=== PATIENT | male | born 1990 | race Caucasian/White ===

== ENCOUNTER 2023-10-21 11:21 | Outpatient (AMB) | payer BC, SELFPAY ==
--- NOTE | 2023-10-21 11:24 | A.OFFPC_ITS ---
Vital Signs 10/21/23 11:35 Height 6 ft Weight 181 lb 2 oz BMI 24.6 BP 120/70 Blood Pressure Location Rt brachial Position Sitting Respiration 16 Pulse 72 Pulse Source Pulse Oximeter Temp 97.8 F Temp Source Temporal Artery Scan Pulse Oximetry (%) 98 Oxygen Delivery Method Room Air Intake Visit Reasons: new patient/ shoulder pain pt letter Intake Note: patient here for new patient visit. 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 I had the pleasure of taking care of him previously. I am aware of the longstanding left shoulder pain and all of the workup and treatment that has gone into it over the last few years. This includes referral to specialist for evaluation and treatment, imaging of not only the shoulder but also the neck, chiropractor and physical therapy. He was given a letter of accommodation previously to avoid lifting greater than 50 lb as this seems to exacerbate his pain. His employer, [employer], is now being managed by a new group and he needs a new letter to support his medical accommodation. Exam: Awake alert, pleasant and cooperative Left arm neurovasc intact. No obvious deformity. Pain over top of shoulder w/ ROM in all directed. LROM overhead. No edema, erythema or ecchymosis. Plan: Letter of medical necessity written to him and provided to him at the time of the visit. RTO to est care for other health items in the next few weeks, sooner PRN. This note is constructed using voice recognition software. While every effort has been made to ensure accuracy in lever miller, still errors may have been included Sometimes, these errors may affect the content or meaning of the given sentence . Total time spent caring for the patient today was 30 minutes. This includes time spent before the visit reviewing the chart, time spent during the visit, and time spent after the visit on documentation [facility] Surgical History (Updated 10/21/23 @ 11:44 by Juliet Pino) H/O tooth extraction Family History (Updated 10/21/23 @ 11:33 by Juliet Pino) Mother FH: mental illness Father FH: mental illness Social History (Updated 10/21/23 @ 11:45 by Juliet Pino) Housing: House Patient Tobacco Use Status: Never used Tobacco e-Cigarette/Vaping Use: Never Used Second Hand Smoke Exposure: No Substance Use Type: Marijuana service: No 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 1. Little interest or pleasure in doing things: not at all 2. Feeling down, depressed, or hopeless: not at all 3. Trouble falling or staying asleep, or sleeping too much: several days 4. Feeling tired or having little energy: not at all 5. Poor appetite or overeating: not at all 6. Feeling bad about yourself - or that you are a failure or have let yourself or your family down: not at all 7. Trouble concentrating on things, such as reading the newspaper or watching television: not at all 8. Moving or speaking so slowly that other people could have noticed. Or the opposite - being so fidgety or restless that you have been moving around a lot more than usual: not at all 9. Thoughts that you would be better off or of hurting yourself in some way: not at all Total score: 1 Depression Screening Interpretation: Negative Depression Screening Done: Yes 01209 - PHQ-9 Billing: Yes Source: Developed by Drs. Sage Marinelli, Amaya Horan, Sd Martinez and colleagues, with an educational kayley from [employer]. Thrive Questionnaire Date Thrive assessed: 10/21/23 I am a: Patient What is your living situation today?: I have a steady place to live Within the past 12 months, did the food you bought not last and you didn't have the money to get more?: Never true Within the past 12 months, did you worry whether your food would run out before you got money to buy more?: Never true Do you have trouble paying for medicines?: No Do you have trouble getting transportation to medical appointments?: No Do you have trouble paying your heating and electricity bill?: No Do you have trouble taking care of your child, family member or friend?: No Do you have trouble with day-to-day activities such as bathing, preparing meals, shopping, managing finances, etc.?: No Are you currently unemployed and looking for a job?: No Are you interested in more education?: No Please select the resources that you would like help with: None Currently or been in a relationship where the following occur: No concerns reported THRIVE Score: 0 AUDIT C Alcohol Use Questionnaire (AUDIT-C) 1. How often do you have a drink containing alcohol?: 2-4 times a month 2. How many drinks containing alcohol do you have on a typical day when you are drinking?: 3 or 4 3. How often do you have six or more drinks on one occasion?: Less than monthly (just on holidays.) Total Score: 4 Score Reviewed/Action Taken: Yes ALISA-7 AMB Questionnaire ALISA-7 Date ALISA - 7 assessed: 10/21/23 Feeling nervous, anxious, or on edge: 0 = Not at all Not being able to stop or control worryin = Not at all Worrying too much about different things: 0 = Not at all Trouble relaxin = Not at all Being so restless that it is hard to sit still: 0 = Not at all Becoming easily annoyed or irritable: 0 = Not at all Feeling afraid as if something awful might happen: 0 = Not at all Total ALISA-7 score (0-4 normal; 5-9 mild; 10-14 moderate; 15-21 severe): 0 Source: Developed by Drs. Sage Marinelli, Amaya Horan, Sd Martinez and colleagues, with an educational kayley from [employer]. ALISA-7 Assessment Billing ALISA-7 Assessment Tool: ALISA-7 Assessment 29334 Physical exam (Primary Care) Vital Signs: Last Vital Signs Temp 97.8 F 10/21/23 11:35 Pulse 72 10/21/23 11:35 Resp 16 10/21/23 11:35 BP 120/70 10/21/23 11:35 Pulse Ox 98 10/21/23 11:35 Oxygen Delivery Method Room Air 10/21/23 11:35 BMI result Body Mass Index 24.6 Tobacco/Smoking Status: Tobacco use Status Tobacco use date assessed 10/21/23 10/21/23 11:35 Patient Tobacco Use Status Never used Tobacco 10/21/23 11:45 e-Cigarette/Vaping Use Never Used 10/21/23 11:45 PHQ-9: PHQ-9 Score PHQ-9: Total score 1 10/21/23 12:16 Depression Screening Interpretation: Negative Thrive Assessment: Date of Thrive Assessment Date Thrive assessed 10/21/23 10/21/23 11:46 Currently or been in a relationship where the following occur: No concerns reported Assessment and Plan Assessment & Plan (1) Chronic left shoulder pain: Code(s): M25.512 - Pain in left shoulder; G89.29 - Other chronic pain Patient Instructions: Walk-In Care (Urgent Care): We Make it Easy Walk-in for urgent medical issues such as: ? Seasonal Allergies ? Insect Bites ? Cough ? Diarrhea ? Acute Asthma Attacks ? Back, Knee or Joint Pain ? Ear Infection ? Fever without a Rash ? Headaches ? Nausea ? [place], Rash or Skin Irritation ? Sore Throat ? Sports Physicals ? Vomiting Most insurances are accepted. Patients do not need to be part of the [facility] to seek care at the walk-in clinic. Locations [facility] , [place] [address] ? [phone] [facility] Walk-In Care in [place] provides services to ages 18 and over. Open Thursday-Thursday: 8 a.m. to 5 p.m. and Thursday: 9 a.m. to 3 p.m.* *Hours may vary due to staffing availability. To confirm Walk-In Care hours in [place], please call [phone]. [address] [place] [address] ? [phone] [facility] Walk-In Care in [place] provides services to ages 12 and over. Open Thursday-Thursday: 8 a.m. to 5 p.m. Hours may vary due to staffing availability. To confirm Walk-In Care hours in [place], please call [phone]. LABORATORY SERVICES: [facility] Lab ? Primary Location [address] [place] [address] Thursday through Thursday 6:00 AM ? 5:00 PM Thursday 7:00 AM ? 11:00 AM* [phone] The [facility] Lab is centrally located near the front entrance of the [facility] for easy outpatient access. Convenient parking is provided for outpatients. *Hours may vary due to staffing availability. To confirm Laboratory hours for any location, please call [phone]. Offsite Location For your convenience, we offer offsite laboratory draw stations at the following locations: [address] [place] [address] ? [facility] [address] [facility], [address] [place] [address] Thursday through Thursday 7:30 AM ? 1:00 PM* [phone] *Hours may vary due to staffing availability. To confirm Laboratory hours for any location, please call [phone]. [place] ? [address] Thursday through Thursday 6:00 AM ? 3:30 PM* Thursday 6:30 AM ? 3 PM* [phone] *Hours may vary due to staffing availability. To confirm Laboratory hours for any location, please call [phone]. [address] [facility] Thursday through Thursday 7:30 AM ? 4:00 PM* [phone] *Hours may vary due to staffing availability. To confirm Laboratory hours for any location, please call [phone] [place] [address] Thursday through 9:00 AM ? 4:00 PM* *Hours may vary due to staffing availability. To confirm Laboratory hours for any location, please call [phone]. Appointments are not necessary. Walk-ins are welcome. Like all the departments throughout the [facility], our Lab undergoes frequent reviews to ensure the quality and accuracy of test results, and our staff takes special pride in its status as a nationally accredited facility. Patient Portal: ONE PATIENT. ONE RECORD. BETTER CARE. [facility] has a fully integrated, cutting- edge mobile electronic health information system that has revolutionized the way we care for our patients and manage our organization. This system improves communication and coordination enabling us to provide safe, higher-quality care, and an overall positive experience for staff and patients. Our first priority, as always, is to deliver the highest quality care possible. The system is running in the background supporting that priority. This portal is for all [facility] services and practices. If you are experiencing any technical difficulties with enrolling or logging into the Patient Portal please complete the [facility] Patient Portal Technical Support Form. [facility] now offers a new secure on-line interactive tool for patients to review their health information ? Patient Portal. This interactive web portal will enable patients and their families to take an active role in their care by providing easy, secure access to their health information via the internet. The Patient Portal provides patients with instant access to their health information, including laboratory results, medications, allergies, demographic information, visit history, and more. In addition to managing their own care, parents and health care proxies with authorized consent will appreciate the ability to access the records of those individuals for whom they provide care. Please note: if you wish to gain access (Proxy) to another patient?s portal, you will be required to come to the Medical Records Department in person at [facility]. Both the patient giving proxy access and the proxy will need to provide photo identification and complete the appropriate authorization. The Patient Portal also allows track their appointments online. The [facility] Patient Portal also saves patients time by allowing them to submit updates to their demographic and contact information prior to their visits. Portal email notifications will also alert patients to any new activity on their portal, such as test results and new appointments. In order to initially enroll in the [facility] Patient Portal, you will need to enter some required information including the following: ? your [facility] Medical Record number ? your personal home email address ? name ? date of Please note: In order to enroll in the [facility] Patient Portal, we need to have your email address on file in your electronic medical record. The email address needs to be specific for one person (yourself) in order for your Portal enrollment to be successful. You can update your email address in person with our Registration staff when you are registering for a hospital visit. Otherwise, you will need to come to the Health Information Management (Medical Records) Department at [facility]. We are open from Thursday ? Thursday from 7:30 a.m. ? 4:30 p.m. You will be required to present a photo id. Once you have successfully enrolled in the Patient Portal, you will receive a one-time user id and password for the Portal, sent to your email address. This will allow you to log into the Patient Portal within 99 hrs and reset your own logon id and password, and define personal security questions. Once your permanent login and password have been set, you can log into the [facility] Patient Portal at any time via the blue button above or from the Portal Logon button on any page of the [facility] website. [facility] encourage all of our patients to enroll in Patient Portal as it presents a valuable opportunity for patients and their families to actively participate in their care and stay healthy Welcome to [facility]. We look forward to working with you. Coding Level of Care Code New Pt Level 3 (61536) Diagnoses Chronic left shoulder pain M25.512; G89.29 Additional Codes ALISA-7 Assessment Billing - ALISA-7 Assessment Tool: ALISA-7 Assessment 08888 ([id number])
[2023-10-21 11:35] VITALS: BP 120/70; PULSE 72; RESP 16; TEMP 36.6; O2SAT 98; BMI 24.6
== END 2023-10-21 12:25 | disposition home or self-care (01) ==
PROVIDERS: Visit Provider Nurse Practitioner Family
DX: M25.512 Pain in left shoulder (principal); G89.29 Other chronic pain
CPT/HCPCS: 99203

== ENCOUNTER 2023-12-30 11:23 | Outpatient (AMB) | payer BC, SELFPAY ==
--- NOTE | 2023-12-30 11:28 | A.OFFPC_ITS ---
Vital Signs 12/30/23 11:30 Height 6 ft Weight 186 lb 2 oz BMI 25.2 BP 112/66 Blood Pressure Location Rt brachial Position Sitting Respiration 14 Pulse 73 Pulse Source Pulse Oximeter Pulse Oximetry (%) 99 Oxygen Delivery Method Room Air Intake Visit Reasons: est care Intake Note: to establish care Allergies No Known Allergies Allergy (Verified 12/30/23 11:56) Medication List - Last Reconciled 12/30/23 by LUIS DickersonP- ferrous sulfate 325 mg PO DAILY omeprazole 20 mg PO DAILY Tobacco use date assessed: 10/21/23 Dental Screening Dental Screen Date: 12/30/23 Did you have a dental visit in the last 12 months?: Yes Did you have a dental problem in the last 6 months where you did not have access to dental care?: No Was dental information given to patient?: Patient has dentist HPI HPI Comments History of Present Illness Details 33 Year old male with chronic left shoul ayush pain, GERD, MDD, ALISA s/p dental extraction 09/2023 Social: works for [employer] Health Maintenance: [employer] 07/06/2017 Specialists: None Here today to establish care. Would like to discuss his chronic left shoulder pain, episodes of guard as well as anxiety and panic. 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 He is also on the verge of being let go from his current job and starting a new job. All of this has caused increased stress for him. He reports that he is having episodes of acid reflux which are longstanding. However they are worse at the current time. The GERD symptoms also occur while he is exercising. Reports that he thinks the GERD is triggering his left shoulder pain. He self treated at home with [id number]-[id number] omeprazole 20 mg for 2 weeks and had positive improvement in his shoulder pain. Reports he had no shoulder pain when using the omeprazole. He initially thought that it helped with his anxiety symptoms as well. However he stopped taking it as he thought his stomach felt different, and started taking every other day. Recently he had an episode of what he calls a panic attack. This was on the day that he did not take his omeprazole. He reports a longstanding history of anxiety and depression. He was in counseling in the past. He was on Zoloft and Prozac in the past. Regards to his medication, reports that he is currently taking an iron supplement and several other supplements to ensure that his body has what it needs. He reports a childhood history of anemia. Exam: Awake, Alert, NAD RRR LS CTAB Abd soft, nontender Mildly anxious,appropriate Plan Cont omeprazole... wonder if any of the supplements are worsening his anxiety or GERD.. iron or mag perhaps.. will need to discuss w/ him at the f/u check screening labs to r/o other causes for sx Declined counseling at this time Start buspirone 7.5 mg po 2-3 times per day, ok to self increase to 15mg BID if needed after 2 weeks. RTO 4 weeks fu Anxiety, sooner PRN This note is constructed using voice recognition software. While every effort has been made to ensure accuracy in leadership development instructor, still errors may have been included Sometimes, these errors may affect the content or meaning of the given sentence . Total time spent caring for the patient today was 30 minutes. This includes time spent before the visit reviewing the chart, time spent during the visit, and time spent after the visit on documentation PFSH Surgical History (Updated 10/21/23 @ 11:44 by Juliet Pino) H/O tooth extraction Family History (Updated 10/21/23 @ 11:33 by Juliet Pino) Mother FH: mental illness Father FH: mental illness Social History (Updated 12/30/23 @ 11:34 by Cat Lafleur MA) Household Members: Significant Other Housing: House Are you a primary healthcare social worker to a significant other at home: No Do you presently have visiting nurse or other home services: No Alcohol intake: current Alcohol intake frequency: a few times a month Alcohol type: beer Patient Tobacco Use Status: Never used Tobacco e-Cigarette/Vaping Use: Never Used Second Hand Smoke Exposure: No Substance Use Type: Marijuana service: No 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 1. Little interest or pleasure in doing things: several days 2. Feeling down, depressed, or hopeless: more than half the days 3. Trouble falling or staying asleep, or sleeping too much: nearly every day 4. Feeling tired or having little energy: nearly every day 5. Poor appetite or overeating: nearly every day 6. Feeling bad about yourself - or that you are a failure or have let yourself or your family down: not at all 7. Trouble concentrating on things, such as reading the newspaper or watching television: nearly every day 8. Moving or speaking so slowly that other people could have noticed. Or the opposite - being so fidgety or restless that you have been moving around a lot more than usual: not at all 9. Thoughts that you would be better off or of hurting yourself in some way: not at all Total score: 15 Depression Screening Interpretation: Positive Depression Screening Follow-up: New Medication prescribed Depression Screening Done: Yes 46397 - PHQ-9 Billing: Yes Source: Developed by Drs. Sage Marinelli, Amaya Horan, Sd Martinez and colleagues, with an educational kayley from [employer]. Thrive Questionnaire Date Thrive assessed: 12/30/23 I am a: Patient What is your living situation today?: I have a steady place to live Within the past 12 months, did the food you bought not last and you didn't have the money to get more?: Never true Within the past 12 months, did you worry whether your food would run out before you got money to buy more?: Never true Do you have trouble paying for medicines?: No Do you have trouble getting transportation to medical appointments?: No Do you have trouble paying your heating and electricity bill?: No Do you have trouble taking care of your child, family member or friend?: No Do you have trouble with day-to-day activities such as bathing, preparing meals, shopping, managing finances, etc.?: No Are you currently unemployed and looking for a job?: No Are you interested in more education?: No Please select the resources that you would like help with: None Currently or been in a relationship where the following occur: No concerns reported THRIVE Score: 0 AUDIT C Alcohol Use Questionnaire (AUDIT-C) 1. How often do you have a drink containing alcohol?: Monthly or less 2. How many drinks containing alcohol do you have on a typical day when you are drinking?: 1 or 2 3. How often do you have six or more drinks on one occasion?: Never Total Score: 1 Score Reviewed/Action Taken: Yes ALISA-7 AMB Questionnaire ALISA-7 Date ALISA - 7 assessed: 12/30/23 Feeling nervous, anxious, or on edge: 2 = More than half the days Not being able to stop or control worryin = More than half the days Worrying too much about different things: 2 = More than half the days Trouble relaxin = More than half the days Being so restless that it is hard to sit still: 2 = More than half the days Becoming easily annoyed or irritable: 0 = Not at all Feeling afraid as if something awful might happen: 2 = More than half the days Total ALISA-7 score (0-4 normal; 5-9 mild; 10-14 moderate; 15-21 severe): 12 Source: Developed by Drs. Sage Marinelli, Amaya Horan, Sd Martinez and colleagues, with an educational kayley from [employer]. ALISA-7 Assessment Billing ALISA-7 Assessment Tool: ALISA-7 Assessment 43842 Physical exam (Primary Care) Vital Signs: Last Vital Signs Pulse 73 12/30/23 11:30 Resp 14 12/30/23 11:30 BP 112/66 12/30/23 11:30 Pulse Ox 99 12/30/23 11:30 Oxygen Delivery Method Room Air 12/30/23 11:30 BMI result Body Mass Index 25.2 Tobacco/Smoking Status: Tobacco use Status Tobacco use date assessed 10/21/23 12/30/23 11:29 Patient Tobacco Use Status Never used Tobacco 12/30/23 11:34 e-Cigarette/Vaping Use Never Used 12/30/23 11:34 PHQ-9: PHQ-9 Score PHQ-9: Total score 15 12/30/23 12:02 Depression Screening Interpretation: Positive Depression Screening Follow-up: New Medication prescribed Thrive Assessment: Date of Thrive Assessment Date Thrive assessed 12/30/23 12/30/23 11:37 Currently or been in a relationship where the following occur: No concerns reported Assessment and Plan Assessment & Plan (1) Chronic left shoulder pain: Code(s): M25.512 - Pain in left shoulder; G89.29 - Other chronic pain (2) Hx of iron deficiency anemia: Code(s): Z86.2 - Personal history of diseases of the blood and blood-forming organs and certain disorders involving the immune mechanism (3) ALISA (generalized anxiety disorder): Code(s): F41.1 - Generalized anxiety disorder (4) MDD (major depressive disorder): Code(s): F32.9 - Major depressive disorder, single episode, unspecified Qualifiers: Major depression recurrence: recurrent Active/Remission status: currently active Major depression episode severity: mild Qualified Code(s): F33.0 - Major depressive disorder, recurrent, mild (5) GERD without esophagitis: Code(s): K21.9 - Gastro-esophageal reflux disease without esophagitis Orders: Orders Complete Blood Count no Diff Today F32.9 - Major depressive disorder, single episode, unspecified, F41.1 - Generalized anxiety disorder, G89.29 - Other chronic pain, K21.9 - Gastro-esophageal reflux disease without esophagitis, M25.512 - Pain in left shoulder, Z86.2 - Personal history of diseases of the blood and blood-forming organs and certain disorders involving the immune mechanism Magnesium Today F32.9 - Major depressive disorder, single episode, unspecified, F41.1 - Generalized anxiety disorder, G89.29 - Other chronic pain, K21.9 - Gastro-esophageal reflux disease without esophagitis, M25.512 - Pain in left shoulder, Z86.2 - Personal history of diseases of the blood and blood-forming organs and certain disorders involving the immune mechanism Comprehensive Met. Panel Today F32.9 - Major depressive disorder, single episo de, unspecified, F41.1 - Generalized anxiety disorder, G89.29 - Other chronic pain, K21.9 - Gastro-esophageal reflux disease without esophagitis, M25.512 - Pain in left shoulder, Z86.2 - Personal history of diseases of the blood and blood-forming organs and certain disorders involving the immune mechanism IRON PROFILE Today F32.9 - Major depressive disorder, single episode, unspecified, F41.1 - Generalized anxiety disorder, G89.29 - Other chronic pain, K21.9 - Gastro-esophageal reflux disease without esophagitis, M25.512 - Pain in left shoulder, Z86.2 - Personal history of diseases of the blood and blood- forming organs and certain disorders involving the immune mechanism Hemoglobin A1c Today F32.9 - Major depressive disorder, single episode, unspecified, F41.1 - Generalized anxiety disorder, G89.29 - Other chronic pain, K21.9 - Gastro-esophageal reflux disease without esophagitis, M25.512 - Pain in left shoulder, Z86.2 - Personal history of diseases of the blood and blood- forming organs and certain disorders involving the immune mechanism TSH reflex Free T4 Today F32.9 - Major depressive disorder, single episode, unspecified, F41.1 - Generalized anxiety disorder, G89.29 - Other chronic pain, K21.9 - Gastro-esophageal reflux disease without esophagitis, M25.512 - Pain in left shoulder, Z86.2 - Personal history of diseases of the blood and blood- forming organs and certain disorders involving the immune mechanism Vitamin B12 and Folate Today F32.9 - Major depressive disorder, single episode, unspecified, F41.1 - Generalized anxiety disorder, G89.29 - Other chronic pain, K21.9 - Gastro-esophageal reflux disease without esophagitis, M25.512 - Pain in left shoulder, Z86.2 - Personal history of diseases of the blood and blood- forming organs and certain disorders involving the immune mechanism Vitamin D 25-OH Total Today F32.9 - Major depressive disorder, single episode, unspecified, F41.1 - Generalized anxiety disorder, G89.29 - Other chronic pain, K21.9 - Gastro-esophageal reflux disease without esophagitis, M25.512 - Pain in left shoulder, Z86.2 - Personal history of diseases of the blood and blood- forming organs and certain disorders involving the immune mechanism Phosphorus Today F32.9 - Major depressive disorder, single episode, unspecified, F41.1 - Generalized anxiety disorder, G89.29 - Other chronic pain, K21.9 - Gastro-esophageal reflux disease without esophagitis, M25.512 - Pain in left shoulder, Z86.2 - Personal history of diseases of the blood and blood- forming organs and certain disorders involving the immune mechanism Medications: New buspirone 7.5 mg PO TID 90 tabs 0RF Coding Level of Care Code Est Pt Level 4 (66560) Diagnoses Chronic left shoulder pain M25.512; G89.29 Hx of iron deficiency anemia Z86.2 ALISA (generalized anxiety disorder) F41.1 Mild episode of recurrent major depressive disorder F33.0 Major depression recurrence: recurrent Active/Remission status: currently active Major depression episode severity: mild GERD without esophagitis K21.9 Additional Codes ALISA-7 Assessment Billing - ALISA-7 Assessment Tool: ALISA-7 Assessment 56448 ([id number])
[2023-12-30 11:30] VITALS: BP 112/66; PULSE 73; RESP 14; O2SAT 99; BMI 25.2
== END 2023-12-30 12:14 | disposition home or self-care (01) ==
PROVIDERS: Visit Provider Nurse Practitioner Family
DX: M25.512 Pain in left shoulder (principal); G89.29 Other chronic pain; F33.0 Major depressive disorder, recurrent, mild; Z86.2 Personal history of diseases of the blood and blood-forming organs and certain disorders involving the immune mechanism; F41.1 Generalized anxiety disorder; K21.9 Gastro-esophageal reflux disease without esophagitis

== ENCOUNTER → 2023-12-30 11:23 | Outpatient (BNVA) | payer BC, SELFPAY | PROVIDERS: Visit Provider Nurse Practitioner Family | DX: G89.29 Other chronic pain (principal); M25.512 Pain in left shoulder; F41.1 Generalized anxiety disorder; F33.0 Major depressive disorder, recurrent, mild; K21.9 Gastro-esophageal reflux disease without esophagitis; Z86.2 Personal history of diseases of the blood and blood-forming organs and certain disorders involving the immune mechanism | CPT/HCPCS: 96127 ==

== ENCOUNTER 2023-12-30 13:37 | Outpatient (REF) | payer BC, SELFPAY ==
[2023-12-30 17:46] LABS: Hematocrit 44.2 % (42.0-52.0); Hemoglobin 14.9 g/dl (14.0-18.0); Mean Corpuscular HGB Conc 33.7 g/dl (31.0-36.0); Mean Corpuscular Volume 86.2 fL (80.0-98.0); Mean Platelet Volume 11.4 fL (9.4-12.4); Platelet Count 286 X10*3/uL (160-400); Red Blood Count 5.13 X10*6/uL (4.60-5.80); Red Cell Distribution Width 13.4 % (11.0-16.0); White Blood Count 6.4 X10*3/uL (4.8-10.8)
[2023-12-30 18:03] LABS: Estimated Average Glucose 105 mg/dL; Hemoglobin A1c % 5.3 % (<6.0)
[2023-12-30 18:06] LABS: Alanine Aminotransferase 26 U/L (0-40); Albumin Level 4.8 g/dL (3.5-5.0); Alkaline Phosphatase 53 U/L (39-117); Anion Gap 12 (12-20); Aspartate Amino Transferase 15 U/L (5-37); Bilirubin Total 0.4 mg/dL (0.0-1.0); Blood Urea Nitrogen 7 mg/dL (9-16); Calcium 9.7 mg/dL (8.4-10.2); Carbon Dioxide 28 mmol/L (22-29); Chloride 105 mmol/L (96-108); Estimated Glomerular Filt Rate > 60; Glucose Random 103 mg/dL (60-115); Iron 79 mcg/dL (45-160); Magnesium 2.2 mg/dL (1.6-2.6); Percent Iron Saturation 27 % (15-50); Phosphorus 2.8 mg/dL (2.7-4.5); Potassium 4.2 mmol/L (3.3-5.1); Sodium 141 mmol/L (135-145); Total Iron Binding Capacity 294 mcg/dL (228-428); Total Protein 7.5 g/dL (6.5-8.0); Unsaturated Iron Binding 215 ug/dL
[2023-12-30 18:21] LABS: TSH reflex Free T4 1.08 uIU/mL (0.32-4.0); Vitamin D 25-OH Total 44.8 ng/mL (>30)
[2023-12-30 18:41] LABS: Folate 9.9 ng/mL (> or = 4.0); Vitamin B12 1172 pg/mL (200-900)
== END 2023-12-30 13:38 | disposition home or self-care (01) ==
LOC: HO.WFDLDS 13:37
PROVIDERS: Visit Provider Nurse Practitioner Family
DX: M25.512 Pain in left shoulder (principal); F41.1 Generalized anxiety disorder; F32.9 Major depressive disorder, single episode, unspecified; K21.9 Gastro-esophageal reflux disease without esophagitis; G89.29 Other chronic pain; Z86.2 Personal history of diseases of the blood and blood-forming organs and certain disorders involving the immune mechanism
CPT/HCPCS: 36415; 80053; 82306; 82607; 82746; 83036; 83540; 83735; 84100; 84443; 85027

== ENCOUNTER 2024-02-02 10:23 | Outpatient (AMB) | payer BC, SELFPAY ==
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
[2024-02-02 10:39] VITALS: BP 124/72; PULSE 79; RESP 14; O2SAT 99; BMI 25.0
== END 2024-02-02 11:08 | disposition home or self-care (01) ==
PROVIDERS: PCP Nurse Practitioner Family; Visit Provider Nurse Practitioner Family
DX: F41.1 Generalized anxiety disorder (principal); F33.0 Major depressive disorder, recurrent, mild; M25.512 Pain in left shoulder; G89.29 Other chronic pain; K21.9 Gastro-esophageal reflux disease without esophagitis

== ENCOUNTER → 2024-02-02 10:23 | Outpatient (BNVA) | payer BC, SELFPAY | PROVIDERS: Visit Provider Nurse Practitioner Family | DX: F41.1 Generalized anxiety disorder (principal); F33.0 Major depressive disorder, recurrent, mild; G89.29 Other chronic pain; M25.512 Pain in left shoulder; K21.9 Gastro-esophageal reflux disease without esophagitis | CPT/HCPCS: 96127 ==

== ENCOUNTER 2024-02-08 15:22 | Outpatient (AMB) | payer BC, SELFPAY ==
--- NOTE | 2024-02-08 15:15 | MHC.PC.OV ---
Intake Visit Reasons: telehealth fu Allergies No Known Allergies Allergy (Verified 02/02/24 10:40) Tobacco use date assessed: 10/21/23 Dental Screening Dental Screen Date: 12/30/23 HPI HPI Comments History of Present Illness Details 34 Year old male with chronic left shoulder pain, GERD, MDD, ALISA s/p dental extraction 09/2023 Social: works for [employer] Health Maintenance: Tdap 07/06/2017 Specialists: None Telehealth visit to fu on ALISA and FMLA Had a panic attack w/ physical sx, not able to talk, sweating, hands like a claw, after dealing car issue. Did increase buspirone to TID. In regards to counseling has not heard back as of this time. Plan will be cont leave for 1 month, first date 02/01/24 -03/02/24 Return to work 03/03/24 with intermittent leave starting at this time and extending through 03/03/2025 Frequency of 1 time per 1 week lasting 2 days per episode Time off for medical appts/treatments Frequency 1 time per 1 week 1 day per appt Tthis form was completed, scanned into the chart and original placed at assistant front office manager for draft roller picker tomorrow. This note is constructed using voice recognition software. While every effort has been made to ensure accuracy in septic tank cleaner, still errors may have been included Sometimes, these errors may affect the content or meaning of the given sentence . Total time spent caring for the patient today was 20 minutes. This includes time spent before the visit reviewing the chart, time spent during the visit, and time spent after the visit on documentation PFSH Surgical History (Updated 10/21/23 @ 11:44 by Juliet Pino MA) H/O tooth extraction Family History (Updated 10/21/23 @ 11:33 by Juliet Pino MA) Mother FH: mental illness Father FH: mental illness Social History (Updated 12/30/23 @ 11:34 by Cat Lafleur MA) Household Members: Significant Other Both parents involved: No Caregiver staying overnight: No Housing: House Are you a primary child care counselor to a significant other at home: No Do you presently have visiting nurse or other home services: No 75 years or older and lives alone: No Alcohol intake: current Alcohol intake frequency: a few times a month Alcohol type: beer Patient Tobacco Use Status: Never used Tobacco e-Cigarette/Vaping Use: Never Used Second Hand Smoke Exposure: No Substance Use Type: Marijuana service: No 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 Sage Marinelli, Amaya Horan, Sd Martinez and colleagues, with an educational kayley from [employer]. Physical exam (Primary Care) Tobacco/Smoking Status: Tobacco use Status Tobacco use date assessed 10/21/23 02/08/24 15:16 Patient Tobacco Use Status Never used Tobacco 02/08/24 15:16 e-Cigarette/Vaping Use Never Used 02/08/24 15:16 Thrive Assessment: Date of Thrive Assessment Date Thrive assessed 02/02/24 02/08/24 15:16 Telehealth Telehealth Telehealth [facility] Location of provider rendering services: practice address Location of patient: address on file Patient Identification confirmed using: Name, : Yes Telehealth method: voice only Patient verbally consented to treatment: Yes Patient verbally consented to billing insurance company: Yes Patient informed of any privacy concerns related to visit: Yes Minutes spent on Phone/Video with Pt.: 13 Coding Level of Care Code Est Pt Level 2 (59005) Complex EM visit Add On G2211 Diagnoses ALISA (generalized anxiety disorder) F41.1 Panic attack as reaction to stress F41.0; F43.0 Encounters for administrative purpose Z02.9 Assessment & Plan Assessment & Plan (1) ALISA (generalized anxiety disorder): Code(s): F41.1 - Generalized anxiety disorder Category: Medical Plan: . (2) Panic attack as reaction to stress: Code(s): F41.0 - Panic disorder [episodic paroxysmal anxiety]; F43.0 - Acute stress reaction Plan: . (3) Encounters for administrative purpose: Code(s): Z02.9 - Encounter for administrative examinations, unspecified Plan: .
== END 2024-02-08 16:36 | disposition home or self-care (01) ==
LOC: HO.HMCFM 15:22
PROVIDERS: PCP Nurse Practitioner Family; Visit Provider Nurse Practitioner Family
DX: F41.1 Generalized anxiety disorder (principal); F41.0 Panic disorder [episodic paroxysmal anxiety]; F43.0 Acute stress reaction

== ENCOUNTER → 2024-02-08 15:22 | Outpatient (BNVA) | payer BC, SELFPAY | PROVIDERS: PCP Nurse Practitioner Family; Visit Provider Nurse Practitioner Family ==

== ENCOUNTER 2024-02-19 16:15 | Outpatient (AMB) | payer BC, SELFPAY ==
--- NOTE | 2024-02-19 16:13 | A.OFFPC_ITS ---
Intake Visit Reasons: Fill out Paperwork Intake Note: Fill out a form for work for mental health issues. Allergies No Known Allergies Allergy (Verified 02/19/24 16:13) Tobacco use date assessed: 10/21/23 Dental Screening Dental Screen Date: 12/30/23 HPI HPI Comments History of Present Illness Details 34 Year old male with chronic left shoul ayush pain, GERD, MDD, ALISA s/p dental extraction 09/2023 Social: works for [employer] Health Maintenance: Tdap 07/06/2017 Specialists: counseling Telehealth visit to on ALISA and paperwork completion from [employer]. Condition of onset about Apr 2023. Hx of Panic attack w/ physical sx, not able to talk, sweating, hands like a claw, after dealing car issue. Currently taking buspirone to TID. In regards to counseling has not heard back as of this time. Plan will be cont leave for 1 month, first date 02/01/24 -03/02/24 Return to work 03/03/24 with intermittent leave starting at this time and extending through 03/03/2025 Frequency of 1 time per 1 week lasting 2 days per episode Time off for medical appts/treatments Frequency 1 time per 1 week 1 day per appt This form was completed, scanned into the chart and original placed at front elevator operator for coal picker tomorrow (In [place]). This note is constructed using voice recognition software. While every effort has been made to ensure accuracy in chair inspector and leveler, still errors may have been included Sometimes, these errors may affect the content or meaning of the given sentence . Total time spent caring for the patient today was 22 minutes. This includes time spent before the visit reviewing the chart, time spent during the visit, and time spent after the visit on documentation PFSH Surgical History (Updated 10/21/23 @ 11:44 by Juliet Pino MA) H/O tooth extraction Family History (Updated 10/21/23 @ 11:33 by Juliet Pino MA) Mother FH: mental illness Father FH: mental illness Social History (Updated 12/30/23 @ 11:34 by Cat Lafleur MA) Household Members: Significant Other Both parents involved: No Caregiver staying overnight: No Housing: House Are you a primary healthcare manager to a significant other at home: No Do you presently have visiting nurse or other home services: No 75 years or older and lives alone: No Alcohol intake: current Alcohol intake frequency: a few times a month Alcohol type: beer Patient Tobacco Use Status: Never used Tobacco e-Cigarette/Vaping Use: Never Used Second Hand Smoke Exposure: No Substance Use Type: Marijuana service: No 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 Sage Marinelli, Amaya Horan, Sd Martinez and colleagues, with an educational kayley from [employer]. Physical exam (Primary Care) Tobacco/Smoking Status: Tobacco use Status Tobacco use date assessed 10/21/23 02/19/24 16:14 Patient Tobacco Use Status Never used Tobacco 02/19/24 16:14 e-Cigarette/Vaping Use Never Used 02/19/24 16:14 Thrive Assessment: Date of Thrive Assessment Date Thrive assessed 02/02/24 02/19/24 16:14 Telehealth Telehealth Telehealth Platform: [facility] Location of provider rendering services: practice address Location of patient: address on file Patient Identification confirmed using: Name, : Yes Telehealth method: voice only Patient verbally consented to treatment: Yes Patient verbally consented to billing insurance company: Yes Patient informed of any privacy concerns related to visit: Yes Minutes spent on Phone/Video with Pt.: 10 Coding Level of Care Code Tele Est Pt Level 3 (52166) Complex EM visit Add On G2211 Diagnoses ALISA (generalized anxiety disorder) F41.1 Mild episode of recurrent major depressive disorder F33.0 Major depression recurrence: recurrent Active/Remission status: currently active Major depression episode severity: mild Assessment & Plan Assessment & Plan (1) ALIAS (generalized anxiety disorder): Code(s): F41.1 - Generalized anxiety disorder Category: Medical Plan: . (2) MDD (major depressive disorder): Code(s): F32.9 - Major depressive disorder, single episode, unspecified Category: Medical Qualifiers: Major depression recurrence: recurrent Active/Remission status: currently active Major depression episode severity: mild Qualified Code(s): F33.0 - Major depressive disorder, recurrent, mild Plan: . Plan .
== END 2024-02-19 17:00 | disposition home or self-care (01) ==
LOC: HO.HMCFM 16:15
PROVIDERS: PCP Nurse Practitioner Family; Visit Provider Nurse Practitioner Family
DX: F41.1 Generalized anxiety disorder (principal); F33.0 Major depressive disorder, recurrent, mild

== ENCOUNTER 2024-03-01 16:47 | Outpatient (AMB) | payer BC, SELFPAY ==
--- NOTE | 2024-03-01 16:25 | A.OFFPC_ITS ---
Intake Visit Reasons: PaperWork Allergies No Known Allergies Allergy (Verified 03/01/24 16:25) Medication List - Last Reconciled 03/01/24 by AL Dickerson buspirone 10 mg PO TID Tobacco use date assessed: 10/21/23 Dental Screening Dental Screen Date: 12/30/23 HPI HPI Comments History of Present Illness Details The patient is a 34-year-old male presenting with Generalized Anxiety Disorder for the purpose of completing mental health paperwork required for leave extension. The patient reports managing anxiety that is specifically unrelated to work. This anxiety has been significant enough to consider a recommendation for cessation of work due to current symptoms and has necessitated an update from a physical to a mental health-related evaluation. The patient has been prescribed Buspirone as part of his treatment regimen. Currently, he is on a waitlist for counseling services at [facility] but has not yet secured an appointment. The patient has opted to extend his leave from work until March 18 to ensure all required paperwork is accurately completed and submitted. Review of Systems Psychiatric: Reports experiencing anxiety outside of work. Denies any recent panic attacks since taking Buspirone. Note: This physical exam was conducted in conjunction with the patient via our Telehealth platform. Plan - Generalized Anxiety Disorder: Continue Buspirone. Place a secondary referral to [facility] for potential sooner appointment availability if [facility] does not schedule promptly. Extend leave of absence until March 18 to accommodate paperwork completion and reduce stress-related exacerbations of anxiety. Patient was informed and verbally consented to the use of an ambient scribe for clinic note documentation during this visit. Discussion Notes I discussed with the patient that Generalized Anxiety Disorder has prompted the need to complete updated mental health documentation for an extended leave of absence. We reviewed the ongoing treatment with Buspirone and emphasized continuation of medication. Understanding the need for therapeutic support, I placed a secondary referral to [facility] in case an earlier appointment can be accessed. We discussed the importance of addressing mental health during the holidays to prevent escalation of anxiety symptoms. The patient expressed concern about potential panic attacks, and I assured him that therapy and proper medication management would be beneficial. I confirmed that the necessary documentation would be ready for collection at our [place] office. Patient Instructions - Continue taking Buspirone as prescribe d. - Await contact from [facility] for co unseling appointment; if no contact, pursue recommendation with [facility]. - Maintain updated leave paperwork and s ubmit by the specified deadline. - Monitor anxiety levels and seek immedi ate help if symptoms worsen. - Keep scheduled follow-up appointments and reach out via the portal for any immediate concerns or queries. Total time spent caring for the patient today was 21 minutes. This includes time spent before the visit reviewing the chart, time spent during the visit, and time spent after the visit on documentation [facility] Surgical History (Updated 10/21/23 @ 11:44 by Juliet Pino MA) H/O tooth extraction Family History (Updated 10/21/23 @ 11:33 by Juliet Pino MA) Mother FH: mental illness Father FH: mental illness Social History (Updated 12/30/23 @ 11:34 by Cat Lafleur MA) Household Members: Significant Other Both parents involved: No Caregiver staying overnight: No Housing: House Are you a primary rn coronary care unit to a significant other at home: No Do you presently have visiting nurse or other home services: No 75 years or older and lives alone: No Alcohol intake: current Alcohol intake frequency: a few times a month Alcohol type: beer Patient Tobacco Use Status: Never used Tobacco e-Cigarette/Vaping Use: Never Used Second Hand Smoke Exposure: No Substance Use Type: Marijuana service: No 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 Sage Marinelli, Amaya Horan, Sd Martinez and colleagues, with an educational kayley from [employer]. Physical exam (Primary Care) Tobacco/Smoking Status: Tobacco use Status Tobacco use date assessed 10/21/23 02/19/24 16:14 Patient Tobacco Use Status Never used Tobacco 02/19/24 16:14 e-Cigarette/Vaping Use Never Used 02/19/24 16:14 Thrive Assessment: Date of Thrive Assessment Date Thrive assessed 02/02/24 02/19/24 16:14 Telehealth Telehealth Telehealth Platform: [facility] Location of provider rendering services: practice address Location of patient: address on file Patient Identification confirmed using: Name, : Yes Telehealth method: voice only Patient verbally consented to treatment: Yes Patient verbally consented to billing insurance company: Yes Patient informed of any privacy concerns related to visit: Yes Minutes spent on Phone/Video with Pt.: 9 Coding Level of Care Code Tele Est Pt Level 3 (22475) Complex EM visit Add On G2211 Diagnoses Encounters for administrative purpose Z02.9 Mild episode of recurrent major depressive disorder F33.0 Major depression recurrence: recurrent Active/Remission status: currently active Major depression episode severity: mild GERD without esophagitis K21.9 Assessment & Plan Assessment & Plan (1) Encounters for administrative purpose: Code(s): Z02.9 - Encounter for administrative examinations, unspecified (2) MDD (major depressive disorder): Code(s): F32.9 - Major depressive disorder, single episode, unspecified Category: Medical Qualifiers: Major depression recurrence: recurrent Active/Remission status: currently active Major depression episode severity: mild Qualified Code(s): F33.0 - Major depressive disorder, recurrent, mild (3) GERD without esophagitis: Code(s): K21.9 - Gastro-esophageal reflux disease without esophagitis Category: Medical Plan . Orders: Referrals Counseling Referral F33.0 - Major depressive disorder, recurrent, mild, K21.9 - Gastro-esophageal reflux disease without esophagitis
== END 2024-03-01 16:48 | disposition home or self-care (01) ==
LOC: HO.HMCFM 16:47
PROVIDERS: PCP Nurse Practitioner Family; Visit Provider Nurse Practitioner Family
DX: F33.0 Major depressive disorder, recurrent, mild (principal); K21.9 Gastro-esophageal reflux disease without esophagitis

== ENCOUNTER 2024-03-15 13:01 | Outpatient (AMB) | payer BC, SELFPAY ==
--- NOTE | 2024-03-15 13:04 | MHC.PC.OV ---
Vital Signs 03/15/24 13:11 Height 6 ft Weight 187 lb BMI 25.4 BP 127/76 Blood Pressure Location Rt brachial Position Sitting Respiration 13 Pulse 83 Pulse Source Pulse Oximeter Pulse Oximetry (%) 100 Oxygen Delivery Method Room Air Intake Visit Reasons: F/U on meds Intake Note: follow up on meds Broke Worker Required: No Allergies No Known Allergies Allergy (Verified 03/15/24 13:24) Medication List - Last Reconciled 03/15/24 by Rayna King, [facility] buspirone 10 mg PO TID Tobacco use date assessed: 10/21/23 Dental Screening Dental Screen Date: 12/30/23 HPI HPI Comments History of Present Illness Details 34 Year old male with chronic left shoulder pain, GERD, MDD, ALISA s/p dental extraction 09/2023 Social: works for [employer] Health Maintenance: [employer] 07/06/2017 Specialists: None Here today for follow up of depression, anxiety and panic attacks. Since last office visit he was started on buspirone 10 mg PO TID. Initially this was helping. However the past few weeks he has had an uptake and panic and anxiety. Reports several panic attacks at home. Continues to be on continuous leave of absence from work. This is also resulted in lots of different stress. He was not establish care with a counselor yet. I gave him the information for [facility] counseling, [facility] and [facility] and well-being. However he has not follow through on this as he just feels too overwhelmed. He admits passive suicidality without a plan. He denies any homicidal intentions. He reports that his mother has failed suicide attempts and several psychiatric hospitalizations. While she was alive, he worries about decompensation himself. Reports that his childhood he had lots of different psychiatric issues and problems. Specifically sertraline made him suicidal. In addition, he was having trouble sleeping. He also needs additional paperwork completed for his continuous leave. Reports that his paid leave from the [employer] was denied. However after explain the situation to me it sounds like that is because it was not a short-term disability rather it is something on the P FMLA. Exam: Awake, Alert, NAD RRR LS CTAB Mildly anxious,appropriate Plan FMLA paperwork completed and handed back to him today. Continuously from 03/03/2024 through 03/16/2024. Return to work 03/17/2024 with intermittent leave. Taper off the buspirone as he feels like this has made his symptoms worse. I have advised for him to start the taper today decreasing it from 3 times a day to twice per day and continue this for 1 week while simultaneously starting Pristiq ER 25 mg daily. Advised to take in the morning. On week 2 advised for him to take buspirone just once a day and then discontinue. I have also prescribed for him hydroxyzine to be used at bedtime for anxiety and to help him sleep. I have also strongly encouraged for him to contact a counseling group whether that be [facility], [facility] or [facility] counseling. I have provided him with all of this information previously. I have asked for him to follow up with me in about 6 weeks, sooner as needed. Crisis & Safety plan information provided to him at the time of the visit. This note is constructed using voice recognition software. While every effort has been made to ensure accuracy in test center manager, still errors may have been included Sometimes, these errors may affect the content or meaning of the given sentence . Total time spent caring for the patient today was 60 minutes. This includes time spent before the visit reviewing the chart, time spent during the visit, and time spent after the visit on documentation PFSH Surgical History (Updated 10/21/23 @ 11:44 by Juliet Pino MA) H/O tooth extraction Family History (Updated 10/21/23 @ 11:33 by Juliet Pino MA) Mother FH: mental illness Father FH: mental illness Social History (Updated 12/30/23 @ 11:34 by Cat Lafleur MA) Household Members: Significant Other Both parents involved: No Caregiver staying overnight: No Housing: House Are you a primary day care home provider to a significant other at home: No Do you presently have visiting nurse or other home services: No 75 years or older and lives alone: No Alcohol intake: current Alcohol intake frequency: a few times a month Alcohol type: beer Patient Tobacco Use Status: Never used Tobacco e-Cigarette/Vaping Use: Never Used Second Hand Smoke Exposure: No Substance Use Type: Marijuana service: No 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 37457 - PHQ-9 Billing: Patient declined-do not bill Source: Developed by Drs. Sage Marinelli, Sd Zapata and colleagues, with an educational kayley from [employer]. Thrive Questionnaire Date Thrive assessed: 03/15/24 I am a: Patient What is your living situation today?: I have a steady place to live Within the past 12 months, did the food you bought not last and you didn't have the money to get more?: Never true Within the past 12 months, did you worry whether your food would run out before you got money to buy more?: Never true Do you have trouble paying for medicines?: No Do you have trouble getting transportation to medical appointments?: No Do you have trouble paying your heating and electricity bill?: No Do you have trouble taking care of your child, family member or friend?: No Do you have trouble with day-to-day activities such as bathing, preparing meals, shopping, managing finances, etc.?: No Are you currently unemployed and looking for a job?: No Are you interested in more education?: No Please select the resources that you would like help with: None Currently or been in a relationship where the following occur: No concerns reported THRIVE Score: 0 ALISA-7 AMB Questionnaire ALISA-7 Date ALISA - 7 assessed: 02/02/24 Source: Developed by Drs. Sage Marinelli, Sd Zapata and colleagues, with an educational kayley from [employer]. Physical exam (Primary Care) Vital Signs: Last Vital Signs Pulse 83 03/15/24 13:11 Resp 13 03/15/24 13:11 BP 127/76 03/15/24 13:11 Pulse Ox 100 03/15/24 13:11 Oxygen Delivery Method Room Air 03/15/24 13:11 BMI result Body Mass Index 25.4 Tobacco/Smoking Status: Tobacco use Status Tobacco use date assessed 10/21/23 03/15/24 13:08 Patient Tobacco Use Status Never used Tobacco 03/15/24 13:08 e-Cigarette/Vaping Use Never Used 03/15/24 13:08 Thrive Assessment: Date of Thrive Assessment Date Thrive assessed 03/15/24 03/15/24 13:08 Currently or been in a relationship where the following occur: No concerns reported Coding Level of Care Code Est Pt Level 5 (73000) Complex EM visit Add On G2211 Diagnoses Mild episode of recurrent major depressive disorder F33.0 Active/Remission status: currently active Major depression episode severity: mild Major depression recurrence: recurrent ALISA (generalized anxiety disorder) F41.1 Panic attacks F41.0 Assessment & Plan Assessment & Plan (1) MDD (major depressive disorder): Code(s): F32.9 - Major depressive disorder, single episode, unspecified Category: Medical Qualifiers: Active/Remission status: currently active Major depression episode severity: mild Major depression recurrence: recurrent Qualified Code(s): F33.0 - Major depressive disorder, recurrent, mild (2) ALISA (generalized anxiety disorder): Code(s): F41.1 - Generalized anxiety disorder Category: Medical (3) Panic attacks: Code(s): F41.0 - Panic disorder [episodic paroxysmal anxiety] Category: Medical Plan . Medications: New desvenlafaxine succinate ER 25 mg PO DAILY 30 tabs 1RF hydroxyzine HCl Take 1-2 tabs as needed at bedtime for insomnia/anxiety 50 mg (2 x 25 mg) PO BEDTIME PRN 60 tabs 0RF insomnia/anxiety hydroxyzine HCl Take 1-2 tabs as needed at bedtime for insomnia/anxiety 50 mg (2 x 25 mg) PO BEDTIME PRN 60 tabs 1RF insomnia/anxiety Discontinued buspirone Discontinued Reason: Doctor's Order 10 mg PO TID 90 tabs 1RF Patient Instructions: Taper off buspirone Take it twice per day for 1 week Then take once per day for 1 week At the same time START Pristiq 25mg take in the AM [facility] Crisis Hotlines Suicide prevention, domestic violence, and other crisis hotlines for youth, young adults, and their friends and families. [employer] Safeline: The [employer] Safeline helps youth who have run away, are thinking about running away, or who already ran away but are ready to come home. Parents and guardians can also contact the hotline if they are worried about their child running away or if their child has already left home. The hotline is available 24 hours a day, seven days a week. Youth, parents, and guardians can also use the online chat feature on the [facility]'s website to ask for help and get support, or [place] [address]. [facility] National Suicide Prevention Lifeline: The [place] Suicide Prevention Lifeline is a network of local crisis centers that are available 24/ to provide support for youth and adults who are in any kind of emotional crisis. In addition to the main hotline number listed above, there are several other numbers to call depending on your needs: Guyanese Language: Deaf and Hard of [phone] Veterans: Disaster Distress: Anyone can also use their online chat feature on their website. [place] Suicide Prevention Lifeline [facility] Helpline: The [facility] Helpline is available to anyone in [place] who is need of emotional support. Anyone can call or text the helpline to receive help from specially trained volunteers. [place] high school and college students can also get online support through the IMHear_ program. For high school students, volunteers ages 15-18 are available Thursday- from 6-9PM. For college students, IMHear_ is available Thursday-Thursday from 5-9PM. The Yamil Project - The Yamil Project is a 03/11 crisis intervention and suicide prevention hotline for LGBTQ youth. Youth can also text Yamil to for support, or use the online chat feature on the Yamil Project's website. TrevorText is available Thursday-Thursday between 3-10PM. TrevorChat is available seven days a week between 3-10PM. SafeLink: SafeLink is for anyone who is being affected by domestic violence or dating violence. Volunteers at SafeLink speak Rwandan and Guyanese, and [facility] also has a service that can provide translation in more than 130 languages. TTY:
[2024-03-15 13:11] VITALS: BP 127/76; PULSE 83; RESP 13; O2SAT 100; BMI 25.4
== END 2024-03-15 13:54 | disposition home or self-care (01) ==
PROVIDERS: PCP Nurse Practitioner Family; Visit Provider Nurse Practitioner Family
DX: F33.0 Major depressive disorder, recurrent, mild (principal); F41.1 Generalized anxiety disorder; F41.0 Panic disorder [episodic paroxysmal anxiety]

== ENCOUNTER 2024-05-04 15:12 | Outpatient (AMB) | payer BC, SELFPAY ==
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
[2024-05-04 15:18] VITALS: BP 134/76; PULSE 71; RESP 13; TEMP 36.5; O2SAT 98; BMI 24.9
== END 2024-05-04 16:06 | disposition home or self-care (01) ==
PROVIDERS: PCP Nurse Practitioner Family; Visit Provider Nurse Practitioner Family
DX: F33.0 Major depressive disorder, recurrent, mild (principal); F41.1 Generalized anxiety disorder; F41.0 Panic disorder [episodic paroxysmal anxiety]

== ENCOUNTER → 2024-05-04 15:12 | Outpatient (BNVA) | payer BC, SELFPAY | PROVIDERS: PCP Nurse Practitioner Family; Visit Provider Nurse Practitioner Family | DX: F33.0 Major depressive disorder, recurrent, mild (principal); F41.1 Generalized anxiety disorder; F41.0 Panic disorder [episodic paroxysmal anxiety]; Z79.899 Other long term (current) drug therapy | CPT/HCPCS: 96127 ==

== ENCOUNTER 2024-06-13 10:39 | Outpatient (AMB) | payer BC, SELFPAY ==
--- NOTE | 2024-06-13 10:41 | A.OFFPC_ITS ---
Vital Signs 06/13/24 10:44 Height 6 ft Weight 184 lb 4 oz BMI 25.0 BP 102/66 Blood Pressure Location Lt brachial Position Sitting Respiration 13 Pulse 65 Pulse Source Pulse Oximeter Temp 96.9 F Temp Source Oral Pulse Oximetry (%) 98 Oxygen Delivery Method Room Air Intake Visit Reasons: anitdepressant check up Intake Note: follow up med review Enrollment Advisor Required: No Allergies No Known Allergies Allergy (Verified 06/13/24 10:56) Medication List - Last Reconciled 06/13/24 by HERNANDEZ Dickerson- desvenlafaxine succinate ER 25 mg PO DAILY hydroxyzine HCl 50 mg (2 x 25 mg) PO BEDTIME PRN Tobacco use date assessed: 06/13/24 Dental Screening Dental Screen Date: 06/13/24 Did you have a dental visit in the last 12 months?: Yes Did you have a dental problem in the last 6 months where you did not have access to dental care?: No Was dental information given to patient?: Patient has dentist HPI HPI Comments History of Present Illness Details 34 Year old male with chronic left shoul ayush pain, GERD, MDD, ALISA s/p dental extraction 09/2023 Social: works for [employer] Maintenance: [employer] 07/06/2017 Specialists: None History of Present Illness - The patient is a 34-year-old male pres enting for a follow-up on anxiety and depression. - Recent resolution of a business issue through legal action was discussed in depth, but no direct changes or effects on his mental health symptoms were mentioned. - Diagnosis and ongoing management of Ge neralized Anxiety Disorder and Major Depressive Disorder were confirmed during this visit. - No need for hydrozyxine, didnt like th e way it made him feel. doing great on pristiq. has list of counselors, just needs to make appt. Denies si/hi. Physical Exam Awake, Alert, NAD RRR LS CTAB Mood and affect appropriate Assessment and Plan 1. Generalized Anxiety Disorder: Stabili ty in anxiety symptoms inferred due to lack of reported exacerbation. No alterations in management or medications were discussed during the visit. The legal issue resolution might stabilize mood indirectly. 2. Major Depressive Disorder: Absence of symptom update; presumed stability. No management changes discussed. Indirect improvement possible due to resolved external stressor. Patient Instructions - Continue with current management strat egies for anxiety and depression. cont pristiq, schedule counseling. dc hydroxyzine - Monitor for any changes in symptoms or stress levels. - Inform me immediately of any exacerbat ion in symptoms or if current management is not providing desired relief. - RTO 3 months cpe/fu sooner prn Consent Patient was informed and verbally consented to the use of an ambient scribe for clinic note documentation during this visit. Total time spent caring for the patient today was 30 minutes. This includes time spent before the visit reviewing the chart, time spent during the visit, and time spent after the visit on documentation, reviewing laboratory results, diagnostic imaging, medications, performing a medically necessary evaluation, counseling on diagnoses, care coordination, ordering appropriate tests, ordering appropriate medications, review of tests performed by other providers, reporting test results with the patient, communication with other healthcare providers. [facility] Surgical History (Updated 10/21/23 @ 11:44 by Juliet Pino MA) H/O tooth extraction Family History (Updated 10/21/23 @ 11:33 by Juliet Pino MA) Mother FH: mental illness Father FH: mental illness Social History (Updated 12/30/23 @ 11:34 by Cat Lafleur MA) Household Members: Significant Other Both parents involved: No Caregiver staying overnight: No Housing: House Are you a primary client care coordinator to a significant other at home: No Do you presently have visiting nurse or other home services: No 75 years or older and lives alone: No Alcohol intake: current Alcohol intake frequency: a few times a month Alcohol type: beer Patient Tobacco Use Status: Never used Tobacco e-Cigarette/Vaping Use: Never Used Second Hand Smoke Exposure: No Substance Use Type: Marijuana service: No 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 25520 - PHQ-9 Billing: Patient declined-do not bill Source: Developed by Drs. Sage Marinelli, Amaya Horan, Sd Martinez and colleagues, with an educational kayley from [employer]. Thrive Questionnaire Date Thrive assessed: 06/13/24 I am a: Patient What is your living situation today?: I have a steady place to live Within the past 12 months, did the food you bought not last and you didn't have the money to get more?: Never true Within the past 12 months, did you worry whether your food would run out before you got money to buy more?: I choose not to answer this question Do you have trouble paying for medicines?: No Do you have trouble getting transportation to medical appointments?: No Do you have trouble paying your heating and electricity bill?: No Do you have trouble taking care of your child, family member or friend?: I choos e not to answer this question Do you have trouble with day-to-day activities such as bathing, preparing meals, shopping, managing finances, etc.?: I choose not to answer this question Are you currently unemployed and looking for a job?: No Are you interested in more education?: I choose not to answer this question Please select the resources that you would like help with: None Currently or been in a relationship where the following occur: No concerns reported THRIVE Score: 0 ALISA-7 AMB Questionnaire ALISA-7 Date ALISA - 7 assessed: 05/04/24 Source: Developed by Drs. Sage Marinelli, Amaya Horan, Sd Martinez and colleagues, with an educational kayley from [employer]. Physical exam (Primary Care) Vital Signs: Last Vital Signs Temp 96.9 F 06/13/24 10:44 Pulse 65 06/13/24 10:44 Resp 2 L 06/13/24 10:44 BP 102/66 06/13/24 10:44 Pulse Ox 98 06/13/24 10:44 Oxygen Delivery Method Room Air 06/13/24 10:44 BMI result Body Mass Index 25.0 Tobacco/Smoking Status: Tobacco use Status Tobacco use date assessed 06/13/24 06/13/24 10:46 Patient Tobacco Use Status Never used Tobacco 06/13/24 10:46 e-Cigarette/Vaping Use Never Used 06/13/24 10:46 Thrive Assessment: Date of Thrive Assessment Date Thrive assessed 06/13/24 06/13/24 10:46 Currently or been in a relationship where the following occur: No concerns reported Coding Level of Care Code Est Pt Level 4 (22664) Complex EM visit Add On G2211 Diagnoses Mild episode of recurrent major depressive disorder F33.0 Major depression recurrence: recurrent Active/Remission status: currently active Major depression episode severity: mild Panic attacks F41.0 ALISA (generalized anxiety disorder) F41.1 Assessment & Plan Assessment & Plan (1) MDD (major depressive disorder): Code(s): F32.9 - Major depressive disorder, single episode, unspecified Category: Medical Qualifiers: Major depression recurrence: recurrent Active/Remission status: currently active Major depression episode severity: mild Qualified Code(s): F33.0 - Major depressive disorder, recurrent, mild (2) Panic attacks: Code(s): F41.0 - Panic disorder [episodic paroxysmal anxiety] Category: Medical (3) ALISA (generalized anxiety disorder): Code(s): F41.1 - Generalized anxiety disorder Category: Medical Plan . Medications: Discontinued hydroxyzine HCl Take 1-2 tabs as needed at bedtime for insomnia/anxiety Discontinued Reason: Order 50 mg (2 x 25 mg) PO BEDTIME PRN 60 tabs 1RF insomnia/anxiety
[2024-06-13 10:44] VITALS: BP 102/66; PULSE 65; RESP 13; TEMP 36.1; O2SAT 98; BMI 25.0
== END 2024-06-13 11:08 | disposition home or self-care (01) ==
PROVIDERS: PCP Nurse Practitioner Family; Visit Provider Nurse Practitioner Family
DX: F33.0 Major depressive disorder, recurrent, mild (principal); F41.0 Panic disorder [episodic paroxysmal anxiety]; F41.1 Generalized anxiety disorder

== ENCOUNTER 2024-09-14 08:46 | Outpatient (AMB) | payer BC, SELFPAY ==
--- NOTE | 2024-09-14 07:16 | A.OFFPC_ITS ---
Intake Visit Reasons: DR'S NOTE FOR WORK Allergies No Known Allergies Allergy (Verified 09/14/24 07:16) Medication List - Last Reconciled 09/14/24 by HERNANDEZ Dickerson- desvenlafaxine succinate ER 25 mg PO DAILY Tobacco use date assessed: 06/13/24 Dental Screening Dental Screen Date: 06/13/24 HPI HPI Comments History of Present Illness Details 34 Year old male with chronic left shoul ayush pain, GERD, MDD, ALISA s/p dental extraction 09/2023 Social: works for [employer] Maintenance: [employer] 07/06/2017 Specialists: None History of Present Illness - The patient is a 34-year-old male pres enting with a request for medical leave from work due to anxiety and panic symptoms. - Recent panic attack at work on resulted in being sent home; linked to job stress. - Weekend symptoms: fluctuating heart ra te, persistent anxiety. - Returning from FMLA leave; experiencin g perceived retaliatory treatment. - Unwarranted pressure to disclose menta l health status. - Regular exercise and compliance coordinator rou melanie prior to current work stress. - Taking pristiq 25mg QD; Used Hydroxyzi ne PRN + effects - Not in counseling - Denies SI/HI - Plans to file EEOC complaint Review of Systems - Psychiatric: Reports anxiety, panic at tacks, and dread regarding work. Denies suicidal ideation. - Cardiovascular: Reports fluctuating he art rate. Denies chest pain. - General: Reports increased stress leve ls related to work environment. Assessment and Plan 1. Generalized Anxiety Disorder - Increase desvenlafaxine to 50 mg daily ., no RX sent as has plenty on ahnd - Hydroxyzine as needed for acute episod es. - Counseling services recommended. - Info provided via the portal for crisi s; advised to go to one of the walk in clinics today to get help. 2. Panic Disorder - Provide one week of medical leave. - Address work-related stressors. 3. Major Depressive Disorder - Monitor efficacy of current Plan. - Follow-up for medication adjustment. My office will reach out to schedule a fu in about 2-3 weeks, sooner PRN Telehealth Attestation The evaluation of this patient was duly conducted through a telehealth video session, adhering to all required protocols for remote care. The patient has been explained that this is an interactive (audio/video) telehealth encounter and what that consists of. The patient understands and wishes to proceed. Transmit platform was used. Total time spent caring for the patient today was 25 minutes. This includes time spent before the visit reviewing the chart, time spent during the visit, and time spent after the visit on documentation, reviewing laboratory results, diagnostic imaging, medications, performing a medically necessary evaluation, counseling on diagnoses, care coordination, ordering appropriate tests, ordering appropriate medications, review of tests performed by other providers, reporting test results with the patient, communication with other healthcare providers. [facility] Surgical History (Updated 10/21/23 @ 11:44 by Juliet Pino MA) H/O tooth extraction Family History (Updated 10/21/23 @ 11:33 by Juliet Pino MA) Mother FH: mental illness Father FH: mental illness Social History (Updated 12/30/23 @ 11:34 by Cat Lafleur MA) Household Members: Significant Other Both parents involved: No Caregiver staying overnight: No Housing: House Are you a primary assurance services manager health care to a significant other at home: No Do you presently have visiting nurse or other home services: No 75 years or older and lives alone: No Alcohol intake: current Alcohol intake frequency: a few times a month Alcohol type: beer Patient Tobacco Use Status: Never used Tobacco e-Cigarette/Vaping Use: Never Used Second Hand Smoke Exposure: No Substance Use Type: Marijuana service: No 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 occupational status: employed 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 Current occupational exposures/hazards: No Cognitive needs: No Hearing needs: No Vision needs: Yes Questionnaire Thrive Questionnaire Date Thrive assessed: 05/04/24 I am a: Patient What is your living situation today?: I have a steady place to live Within the past 12 months, did the food you bought not last and you didn't have the money to get more?: Never true Within the past 12 months, did you worry whether your food would run out before you got money to buy more?: I choose not to answer this question Do you have trouble paying for medicines?: No Do you have trouble getting transportation to medical appointments?: No Do you have trouble paying your heating and electricity bill?: No Do you have trouble taking care of your child, family member or friend?: I choose not to answer this question Do you have trouble with day-to-day activities such as bathing, preparing meals, shopping, managing finances, etc.?: I choose not to answer this question Are you currently unemployed and looking for a job?: No Are you interested in more education?: I choose not to answer this question Please select the resources that you would like help with: None Currently or been in a relationship where the following occur: No concerns reported THRIVE Score: 0 ALISA-7 AMB Questionnaire LAISA-7 Date ALISA - 7 assessed: 05/04/24 Source: Developed by Drs. Sage Marinelli, Amaya Horan, Sd Martinez and colleagues, with an educational kayley from [employer] Physical exam (Primary Care) Tobacco/Smoking Status: Tobacco use Status Tobacco use date assessed 06/13/24 06/13/24 10:46 Patient Tobacco Use Status Never used Tobacco 06/13/24 10:46 e-Cigarette/Vaping Use Never Used 06/13/24 10:46 Thrive Assessment: Date of Thrive Assessment Date Thrive assessed 05/04/24 09/13/24 20:27 Currently or been in a relationship where the following occur: No concerns reported Telehealth Telehealth Telehealth Platform: [facility] Location of provider rendering services: practice address Location of patient: address on file Patient Identification confirmed using: Name, : Yes Telehealth method: voice only Patient verbally consented to treatment: Yes Patient verbally consented to billing insurance company: Yes Patient informed of any privacy concerns related to visit: Yes Minutes spent on Phone/Video with Pt.: 13 Coding Level of Care Code Tele Est Pt Level 3 (19981) Complex EM visit Add On G2211 Diagnoses ALISA (generalized anxiety disorder) F41.1 Panic attacks F41.0 Mild episode of recurrent major depressive disorder F33.0 Major depression recurrence: recurrent Active/Remission status: currently active Major depression episode severity: mild Assessment & Plan Assessment & Plan (1) ALISA (generalized anxiety disorder): Code(s): F41.1 - Generalized anxiety disorder Category: Medical (2) Panic attacks: Code(s): F41.0 - Panic disorder [episodic paroxysmal anxiety] Category: Medical (3) MDD (major depressive disorder): Code(s): F32.9 - Major depressive disorder, single episode, unspecified Category: Medical Qualifiers: Major depression recurrence: recurrent Active/Remission status: currently active Major depression episode severity: mild Qualified Code(s): F33.0 - Major depressive disorder, recurrent, mild Plan . Medications: Changed From desvenlafaxine succinate ER 25 mg PO DAILY 90 tabs 1RF To desvenlafaxine succinate ER 50 mg (2 x 25 mg) PO DAILY 90 tabs 1RF Refilled hydroxyzine HCl Take 1-2 tabs as needed at bedtime for insomnia/anxiety 50 mg (2 x 25 mg) PO BEDTIME PRN 60 tabs 1RF insomnia/anxiety Patient Instructions: National Suicide and Crisis Lifeline: Available 24 hours a day, 7 days a week, 365 days a year Dial 988 with any telephone to speak to someone immediately [address] [address] , [facility] (Mental / Behavioral health therapist: [address] [place], [place] [id number] [facility]ly [facility] at [facility]: [address] [place] [id number] Open from 10am - 12pm (walk [facility]) [facility] Crisis Services: [address] [place] [address] Walk in hours from 10am - 12pm Behavioral health Network: [address] [place] [id number] [place] [phone] Thursday through Thursday 8am - 8pm Thursday and Thursday 9am - 5pm Crisis Hotlines Suicide prevention, domestic violence, and other crisis hotlines for youth, young adults, and their friends and families. National Runaway Safeline: The National Runaway Safeline helps youth who have run away, are thinking about running away, or who already ran away but are ready to come home. Parents and guardians can also contact the hotline if they are worried about their child running away or if their child has already left home. The hotline is available 24 hours a day, seven days a week. Youth, parents, and guardians can also use the online chat feature on the Runaway Safeline's website to ask for help and get support, [place] [address]. National Runaway Safeline National Suicide Prevention Lifeline: The [place] Suicide Prevention Lifeline is a network of local crisis centers that are available 03/11 to provide support for youth and adults who are in any kind of emotional crisis. In addition to the main hotline number listed above, there are several other numbers to call depending on your needs: Macanese Language: Deaf and Hard of Hearin1-205.625.8422 Veterans: Disaster Distress: Anyone can also use their online chat feature on their website. [place] Suicide Prevention Lifeline [facility] Helpline: The [facility] Helpline is available to anyone in [place] who is need of emotional support. Anyone can call or text the helpline to receive help from specially trained volunteers. [place] high school and college students can also get online support through the IMHear_ program. For high school students, volunteers ages 15-18 are available Thursday- from 6-9PM. For college students, IMHear_ is available Thursday-Thursday from 5-9PM. The Yamil Project - The Yamil Project is a 03/11 crisis intervention and suicide prevention hotline for LGBTQ youth. Youth can also text Yamil to for support, or use the online chat feature on the Yamil Project's website. TrevorText is available Thursday-Thursday between 3-10PM. TrevorChat is available seven days a week between 3-10PM. SafeLink: SafeLink is for anyone who is being affected by domestic violence or dating violence. Volunteers at SafeLink speak Thai and Macanese, and SafeLink also has a service that can provide translation in more than 130 languages. TTY:
== END 2024-09-14 08:46 | disposition home or self-care (01) ==
LOC: HO.HMCFM 08:46
PROVIDERS: PCP Nurse Practitioner Family; Visit Provider Nurse Practitioner Family
DX: F41.1 Generalized anxiety disorder (principal); F41.0 Panic disorder [episodic paroxysmal anxiety]; F33.0 Major depressive disorder, recurrent, mild

== ENCOUNTER → 2024-09-14 08:46 | Outpatient (BNVA) | payer BC, SELFPAY | PROVIDERS: PCP Nurse Practitioner Family; Visit Provider Nurse Practitioner Family | DX: F33.0 Major depressive disorder, recurrent, mild (principal); F41.1 Generalized anxiety disorder; F41.0 Panic disorder [episodic paroxysmal anxiety]; M25.512 Pain in left shoulder; K21.9 Gastro-esophageal reflux disease without esophagitis; G89.29 Other chronic pain | CPT/HCPCS: 98968 ==

== ENCOUNTER 2024-09-28 13:32 | Outpatient (AMB) | payer BC, SELFPAY ==
--- NOTE | 2024-09-28 14:17 | A.OFFPC_ITS ---
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: No Allergies No Known Allergies Allergy (Verified 09/28/24 16:03) Medication List - Last Reconciled 09/28/24 by HERNANDEZ Dickerson- desvenlafaxine succinate ER 50 mg (2 x 25 mg) PO DAILY hydroxyzine HCl 50 mg (2 x 25 mg) PO BEDTIME PRN Tobacco use date assessed: 09/28/24 Dental Screening Dental Screen Date: 09/28/24 Did you have a dental visit in the last 12 months?: Yes Did you have a dental problem in the last 6 months where you did not have access to dental care?: No Was dental information given to patient?: Patient has dentist HPI HPI Comments History of Present Illness Details 34 Year old male with chronic left shoul ayush pain, GERD, MDD, ALISA s/p dental extraction 09/2023 Social: works for [employer] Health Maintenance: [employer] 07/06/2017 Specialists: None History of Present Illness Previously: - The patient is a 34-year-old male pres enting with a request for medical leave from work due to anxiety and panic symptoms. - Recent panic attack at work on y resulted in being sent home; linked to job stress. - Weekend symptoms: fluctuating heart ra te, persistent anxiety. - Returning from FMLA leave; experiencin g perceived retaliatory treatment. - Unwarranted pressure to disclose jonathon l health status. 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 - Taking pristiq 25mg QD; Used Hydroxyzi ne PRN + effects - Not in counseling - Denies SI/HI - Plans to file EEOC complaint Review of Systems - Psychiatric: Reports anxiety, panic at tacks, and dread regarding work. Denies suicidal ideation. - Cardiovascular: Reports fluctuating he art rate. Denies chest pain. - General: Reports increased stress leve ls related to work environment. Today reports went to [facility] for intake While not great experience, met w/ counselor Will have session next week Taking meds as directed Denies si/hi. Needs leave form completed for dates 09/12-09/25/2024. He returned to work today. Assessment and Plan 1. Generalized Anxiety Disorder - Cont. desvenlafaxine to 50 mg daily., no RX sent as has plenty on ahnd - Hydroxyzine as needed for acute episod es. - Counseling services - Continue 2. Panic Disorder - Health Cert form completed for dates -09/25/2024. - Pt will picker feeder tomorrow - Address work-related stressors. 3. Major Depressive Disorder - Monitor efficacy of current Plan. - Follow-up for medication adjustment. Telehealth Attestation The evaluation of this patient was duly conducted through a telehealth video session, adhering to all required protocols for remote care. The patient has been explained that this is an interactive (audio/video) telehealth encounter and what that consists of. The patient understands and wis hes to proceed. MyMiniLife platform was used. Total time spent caring for the patient today was 25 minutes. This includes time spent before the visit reviewing the chart, time spent during the visit, and time spent after the visit on documentation, reviewing laboratory results, diagnostic imaging, medications, performing a medically necessary evaluation, counseling on diagnoses, care coordination, ordering appropriate tests, ordering appropriate medications, review of tests performed by other providers, reporting test results with the patient, communication with other healthcare providers. [facility] Surgical History (Updated 10/21/23 @ 11:44 by Juliet Pino MA) H/O tooth extraction Family History (Updated 10/21/23 @ 11:33 by Juliet Pino MA) Mother FH: mental illness Father FH: mental illness Social History (Updated 12/30/23 @ 11:34 by Cat Lafleur MA) Household Members: Significant Other Both parents involved: No Caregiver staying overnight: No Housing: House Are you a primary gericare aide to a significant other at home: No Do you presently have visiting nurse or other home services: No 75 years or older and lives alone: No Alcohol intake: current Alcohol intake frequency: a few times a month Alcohol type: beer Patient Tobacco Use Status: Never used Tobacco e-Cigarette/Vaping Use: Never Used Second Hand Smoke Exposure: No Substance Use Type: Marijuana service: No Current occupational status: employed 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 Aung, Sd Martinez and colleagues, with an educational kayley from [employer]. Physical exam (Primary Care) Tobacco/Smoking Status: Tobacco use Status Tobacco use date assessed 09/28/24 09/28/24 14:19 Patient Tobacco Use Status Never used Tobacco 09/28/24 14:19 e-Cigarette/Vaping Use Never Used 09/28/24 14:19 Thrive Assessment: Date of Thrive Assessment Date Thrive assessed 05/04/24 09/28/24 14:19 Telehealth Telehealth Telehealth Platform: [facility] Location of provider rendering services: practice address Location of patient: address on file Patient Identification confirmed using: Name, : Yes Telehealth method: voice only Patient verbally consented to treatment: Yes Patient verbally consented to billing insurance company: Yes Patient informed of any privacy concerns related to visit: Yes Minutes spent on Phone/Video with Pt.: 14 Coding Level of Care Code Tele Est Pt Level 3 (30992) Complex EM visit Add On G2211 Diagnoses Encounters for other specified administrative purpose Z02.89 ALISA (generalized anxiety disorder) F41.1 Mild episode of recurrent major depressive disorder F33.0 Major depression recurrence: recurrent Active/Remission status: currently active Major depression episode severity: mild Panic attacks F41.0 Assessment & Plan Assessment & Plan (1) Encounters for other specified administrative purpose: Code(s): Z02.89 - Encounter for other administrative examinations (2) ALISA (generalized anxiety disorder): Code(s): F41.1 - Generalized anxiety disorder Category: Medical (3) MDD (major depressive disorder): Code(s): F32.9 - Major depressive disorder, single episode, unspecified Category: Medical Qualifiers: Major depression recurrence: recurrent Active/Remission status: currently active Major depression episode severity: mild Qualified Code(s): F33.0 - Major depressive disorder, recurrent, mild (4) Panic attacks: Code(s): F41.0 - Panic disorder [episodic paroxysmal anxiety] Category: Medical Plan .
== END 2024-09-28 16:09 | disposition home or self-care (01) ==
LOC: HO.HMCFM 13:32
PROVIDERS: PCP Nurse Practitioner Family; Visit Provider Nurse Practitioner Family
DX: F41.1 Generalized anxiety disorder (principal); F33.0 Major depressive disorder, recurrent, mild; F41.0 Panic disorder [episodic paroxysmal anxiety]; Z02.89 Encounter for other administrative examinations

== ENCOUNTER → 2024-09-28 13:32 | Outpatient (BNVA) | payer BC, SELFPAY | PROVIDERS: PCP Nurse Practitioner Family; Visit Provider Nurse Practitioner Family | DX: F33.0 Major depressive disorder, recurrent, mild (principal); F41.1 Generalized anxiety disorder; F41.0 Panic disorder [episodic paroxysmal anxiety]; M25.512 Pain in left shoulder; G89.29 Other chronic pain; K21.9 Gastro-esophageal reflux disease without esophagitis; Z02.89 Encounter for other administrative examinations | CPT/HCPCS: 98968 ==

== ENCOUNTER 2024-10-10 14:03 | Outpatient (AMB) | payer BC, SELFPAY ==
--- NOTE | 2024-10-10 14:06 | MHC.PC.OV ---
Intake Visit Reasons: FU panic and anxiety Intake Note: Telehealth follow up on anxiety and panic attacks Change Consultant Required: No Allergies No Known Allergies Allergy (Verified 10/10/24 15:32) Medication List - Last Reconciled 10/10/24 by HERNANDEZ Dickerson- desvenlafaxine succinate ER 50 mg (2 x 25 mg) PO DAILY hydroxyzine HCl 50 mg (2 x 25 mg) PO BEDTIME PRN Tobacco use date assessed: 09/28/24 Dental Screening Dental Screen Date: 09/28/24 HPI HPI Comments History of Present Illness Details 34 Year old male with chronic left shoulder pain, GERD, MDD, ALISA s/p dental extraction 09/2023 Social: works for [employer] Health Maintenance: [employer] 07/06/2017 Specialists: None History of Present Illness - The patient is a 34-year-old male presenting with management of anxiety and depressive symptoms exacerbated by work-related stress. - Increased anxiety and depression due to workplace conflicts and alleged retaliation. - Delayed salary and blocked paperwork worsening stress and financial difficulties. - Difficulties convincing therapists of schedule communication errors during telehealth appointments. - Childhood history of psychological assays and special education, now surfacing. - Currently on desvenlafaxine 50mg for Major Depressive Disorder with partial symptom relief. - No suicidal ideation; reports stress, anxiety, and overwhelming feelings. - Financial difficulties impacting medication acquisition. Review of Systems - Psychiatric: Reports increased anxiety and depression; overwhelmed feeling; denies suicidal ideation. Physical Exam Tearful and hyperventilating on phone Able to ground self deep breathe,you're ok Future oriented, contracts for safety Assessment and Plan 1. Major Depressive Disorder - Desvenlafaxine 75 mg daily. - Use financial management consultant programs for prescriptions. I sent in 50mg tab, if not able to afford ok to take 3 x 25mg Caution running out o this all together 2. Anxiety Disorder - Modify antidepressant dosing. - Discuss therapy continuation. PRN Hydroxyzine 3. Employment-Related Stress - Document employment issues. 4. Financial Constraints - Seek assistance programs. 5. History of Childhood Special Education - Note childhood history comprehensively. Close interim fu in 2-3 weeks, sooner prn. Has crisis info Telehealth Attestation The visit was conducted via telehealth with audio only. The documentation and management decisions reflect the patient's statements and reported experiences. The patient has been explained that this is an interactive (audio/video) telehealth encounter and what that consists of. The patient understands and wishes to proceed. Zaiseoul platform was used. Total time spent caring for the patient today was 25 minutes. This includes time spent before the visit reviewing the chart, time spent during the visit, and time spent after the visit on documentation, reviewing laboratory results, diagnostic imaging, medications, performing a medically necessary evaluation, counseling on diagnoses, care coordination, ordering appropriate tests, ordering appropriate medications, review of tests performed by other providers, reporting test results with the patient, communication with other healthcare providers. [facility] Surgical History (Updated 10/21/23 @ 11:44 by Juliet Pino MA) H/O tooth extraction Family History (Updated 10/21/23 @ 11:33 by Juliet Pino MA) Mother FH: mental illness Father FH: mental illness Social History (Updated 12/30/23 @ 11:34 by Cat Lafleur MA) Household Members: Significant Other Both parents involved: No Caregiver staying overnight: No Housing: House Are you a primary hearing care practitioner to a significant other at home: No Do you presently have visiting nurse or other home services: No 75 years or older and lives alone: No Alcohol intake: current Alcohol intake frequency: a few times a month Alcohol type: beer Patient Tobacco Use Status: Never used Tobacco e-Cigarette/Vaping Use: Never Used Second Hand Smoke Exposure: No Substance Use Type: Marijuana service: No 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 occupational status: employed 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 Current occupational exposures/hazards: No Cognitive needs: No Hearing needs: No Vision needs: Yes Questionnaire Thrive Questionnaire Date Thrive assessed: 05/04/24 I am a: Patient What is your living situation today?: I have a steady place to live Within the past 12 months, did the food you bought not last and you didn't have the money to get more?: Never true Within the past 12 months, did you worry whether your food would run out before you got money to buy more?: I choose not to answer this question Do you have trouble paying for medicines?: No Do you have trouble getting transportation to medical appointments?: No Do you have trouble paying your heating and electricity bill?: No Do you have trouble taking care of your child, family member or friend?: I choose not to answer this question Do you have trouble with day-to-day activities such as bathing, preparing meals, shopping, managing finances, etc.?: I choose not to answer this question Are you currently unemployed and looking for a job?: No Are you interested in more education?: I choose not to answer this question Please select the resources that you would like help with: None Currently or been in a relationship where the following occur: No concerns reported THRIVE Score: 0 AUDIT C Alcohol Use Questionnaire (AUDIT-C) 3. How often do you have six or more drinks on one occasion?: Never Total Score: 0 ALISA-7 AMB Questionnaire ALISA-7 Date ALISA - 7 assessed: 05/04/24 Source: Developed by Drs. Sage Marinelli, Amaya Horan, Sd Martinez and colleagues, with an educational kayley from [employer]. Physical exam (Primary Care) Tobacco/Smoking Status: Tobacco use Status Tobacco use date assessed 09/28/24 10/10/24 14:07 Patient Tobacco Use Status Never used Tobacco 10/10/24 14:07 e-Cigarette/Vaping Use Never Used 10/10/24 14:07 Thrive Assessment: Date of Thrive Assessment Date Thrive assessed 05/04/24 10/10/24 14:07 Currently or been in a relationship where the following occur: No concerns reported Telehealth Telehealth Telehealth Platform: [facility] Location of provider rendering services: practice address Location of patient: address on file Patient Identification confirmed using: Name, : Yes Telehealth method: voice only Patient verbally consented to treatment: Yes Patient verbally consented to billing insurance company: Yes Patient informed of any privacy concerns related to visit: Yes Minutes spent on Phone/Video with Pt.: 15 Coding Level of Care Code Tele Est Pt Level 3 (95575) Complex EM visit Add On G2211 Diagnoses ALISA (generalized anxiety disorder) F41.1 Mild episode of recurrent major depressive disorder F33.0 Major depression recurrence: recurrent Active/Remission status: currently active Major depression episode severity: mild Panic attacks F41.0 Assessment & Plan Assessment & Plan (1) ALISA (generalized anxiety disorder): Code(s): F41.1 - Generalized anxiety disorder Category: Medical (2) MDD (major depressive disorder): Code(s): F32.9 - Major depressive disorder, single episode, unspecified Category: Medical Qualifiers: Major depression recurrence: recurrent Active/Remission status: currently active Major depression episode severity: mild Qualified Code(s): F33.0 - Major depressive disorder, recurrent, mild (3) Panic attacks: Code(s): F41.0 - Panic disorder [episodic paroxysmal anxiety] Category: Medical Plan . Medications: New desvenlafaxine succinate ER 50 mg PO DAILY 90 tabs 0RF Changed From desvenlafaxine succinate ER 50 mg (2 x 25 mg) PO DAILY 90 tabs 1RF To desvenlafaxine succinate ER 25 mg PO DAILY 90 tabs 1RF
== END 2024-10-10 15:50 | disposition home or self-care (01) ==
LOC: HO.HMCFM 14:03
PROVIDERS: PCP Nurse Practitioner Family; Visit Provider Nurse Practitioner Family
DX: F41.1 Generalized anxiety disorder (principal); F33.0 Major depressive disorder, recurrent, mild; F41.0 Panic disorder [episodic paroxysmal anxiety]

== ENCOUNTER → 2024-10-10 14:03 | Outpatient (BNVA) | payer BC, SELFPAY | PROVIDERS: PCP Nurse Practitioner Family; Visit Provider Nurse Practitioner Family | DX: F41.1 Generalized anxiety disorder (principal); F41.0 Panic disorder [episodic paroxysmal anxiety]; F33.0 Major depressive disorder, recurrent, mild; M25.512 Pain in left shoulder; K21.9 Gastro-esophageal reflux disease without esophagitis | CPT/HCPCS: 98967 ==

== ENCOUNTER 2024-10-31 12:45 | Outpatient (AMB) | payer BC, SELFPAY ==
--- NOTE | 2024-10-31 12:41 | A.OFFPC_ITS ---
Intake Visit Reasons: 2-3 weeks telehealth FU ALISA/panic Intake Note: Telehealth follow up on alisa and panic attacks Finishing Range Supervisor Required: No Allergies No Known Allergies Allergy (Verified 10/31/24 13:54) Medication List - Last Reconciled 10/31/24 [facility] desvenlafaxine succinate ER 25 mg PO DAILY desvenlafaxine succinate ER 50 mg PO DAILY hydroxyzine HCl 50 mg (2 x 25 mg) PO BEDTIME PRN Tobacco use date assessed: 09/28/24 Dental Screening Dental Screen Date: 10/31/24 Did you have a dental visit in the last 12 months?: Yes Did you have a dental problem in the last 6 months where you did not have access to dental care?: No Was dental information given to patient?: Patient has dentist HPI HPI Comments History of Present Illness Details 34 Year old male with chronic left shoul ayush pain, GERD, MDD, ALISA s/p dental extraction 09/2023 Social: works for [employer] Maintenance: [employer] 07/06/2017 Specialists: None Concern sent to me today from Neva Naqvi: I am still in [place], thriving and doing extremely well. I have been in little to no contact with Enrique during our separation. A friend of mine who checked in on him has been telling me he is not doing good and if anything, progressively g etting worse. I?m afraid of hearing how much his mental health is plummeting and reaching out to you because I don?t know if he should be put on a different type of medication. I?m being told he?s extremely deep into his mental issues and within hearing that, decided to continue staying in [place] longer to be away from that. I wanted to reach out to you in case Enrique doesn?t tell you the full truth. This is a hard to watch considering it feels like my life, sense of safety and security has been ripped from under me. I hope you can find something that can help him. History of Present Illness - The patient is a 34-year-old male pres enting with anxiety. - Reports increased anxiety and difficul ty managing activities after girlfriend's departure. - Reports work-related stress and percei pasha retaliation from employer. - Experienced high heart rate during wor k stress and a prior panic attack. - Undergoing therapy and recently increa sed medication dosage to 75 mg. - Engages in daily physical activity to manage anxiety. - No further panic attacks since medicat ion adjustment. - Reports emotional overwhelm due to lif e and work stressors. - Reviewed the above message w/ him toivory y. Aware of concern . Denies si/hi. Review of Systems - Psychiatric: Reports anxiety, overwhel jesse stress, and panic attacks. Reports improvement with recent medication adjustment and therapy involvement. Assessment and Plan 1. Generalized Anxiety Disorder - Cont medication at 75 mg , as this has resulted in symptom improvement. - Continue current therapy participation . 2. Work-related Stress - Continue monitoring and managing stres s. - Encourage therapeutic techniques and m aintain HR discussions. Telehealth visit in 2 weeks for close interim fu Discussed potental to start mood stabilizer (abilify) at next visit. Telehealth Attestation This visit was conducted via telehealth and accurately reflects the patient's reported symptoms and concerns, as documented. The patient has been explained that this is an interactive (audio/video) telehealth encounter and what that consists of. The patient understands and wishes to proceed. Libox platform was used. Total time spent caring for the patient today was 41 minutes. This includes time spent before the visit reviewing the chart, time spent during the visit, and time spent after the visit on documentation, reviewing laboratory results, diagnostic imaging, medications, performing a medically necessary evaluation, counseling on diagnoses, care coordination, ordering appropriate tests, ordering appropriate medications, review of tests performed by other providers, reporting test results with the patient, communication with other healthcare providers. [facility] Surgical History (Updated 10/21/23 @ 11:44 by Juliet Pino MA) H/O tooth extraction Family History (Updated 10/21/23 @ 11:33 by Juliet Pino MA) Mother FH: mental illness Father FH: mental illness Social History (Updated 12/30/23 @ 11:34 by Cat Lafleur MA) Household Members: Significant Other Both parents involved: No Caregiver staying overnight: No Housing: House Are you a primary family member caretaker to a significant other at home: No Do you presently have visiting nurse or other home services: No 75 years or older and lives alone: No Alcohol intake: current Alcohol intake frequency: a few times a month Alcohol type: beer Patient Tobacco Use Status: Never used Tobacco e-Cigarette/Vaping Use: Never Used Second Hand Smoke Exposure: No Substance Use Type: Marijuana service: No 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 occupational status: employed 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 Current occupational exposures/hazards: No Cognitive needs: No Hearing needs: No Vision needs: Yes Questionnaire Thrive Questionnaire Date Thrive assessed: 05/04/24 I am a: Patient What is your living situation today?: I have a steady place to live Within the past 12 months, did the food you bought not last and you didn't have the money to get more?: Never true Within the past 12 months, did you worry whether your food would run out before you got money to buy more?: I choose not to answer this question Do you have trouble paying for medicines?: No Do you have trouble getting transportation to medical appointments?: No Do you have trouble paying your heating and electricity bill?: No Do you have trouble taking care of your child, family member or friend?: I choose not to answer this question Do you have trouble with day-to-day activities such as bathing, preparing meals, shopping, managing finances, etc.?: I choose not to answer this question Are you currently unemployed and looking for a job?: No Are you interested in more education?: I choose not to answer this question Please select the resources that you would like help with: None Currently or been in a relationship where the following occur: No concerns reported THRIVE Score: 0 ALISA-7 AMB Questionnaire ALISA-7 Date ALISA - 7 assessed: 05/04/24 Source: Developed by Drs. Sage Marinelli, Amaya Horan, Sd Martinez and colleagues, with an educational kayley from [employer]. Physical exam (Primary Care) Tobacco/Smoking Status: Tobacco use Status Tobacco use date assessed 09/28/24 10/31/24 12:43 Patient Tobacco Use Status Never used Tobacco 10/31/24 12:43 e-Cigarette/Vaping Use Never Used 10/31/24 12:43 Thrive Assessment: Date of Thrive Assessment Date Thrive assessed 05/04/24 10/31/24 12:43 Currently or been in a relationship where the following occur: No concerns reported Telehealth Telehealth Telehealth Platform: [facility] Location of provider rendering services: practice address Location of patient: address on file Patient Identification confirmed using: Name, : Yes Telehealth method: voice only Patient verbally consented to treatment: Yes Patient verbally consented to billing insurance company: Yes Patient informed of any privacy concerns related to visit: Yes Minutes spent on Phone/Video with Pt.: 31 Coding Level of Care Code Tele Est Pt Level 5 (09820) Complex EM visit Add On G2211 Diagnoses ALISA (generalized anxiety disorder) F41.1 Mild episode of recurrent major depressive disorder F33.0 Active/Remission status: currently active Major depression episode severity: mild Major depression recurrence: recurrent Panic attacks F41.0 Assessment & Plan Assessment & Plan (1) ALISA (generalized anxiety disorder): Code(s): F41.1 - Generalized anxiety disorder Category: Medical (2) MDD (major depressive disorder): Code(s): F32.9 - Major depressive disorder, single episode, unspecified Category: Medical Qualifiers: Active/Remission status: currently active Major depression episode severity: mild Major depression recurrence: recurrent Qualified Code(s): F33.0 - Major depressive disorder, recurrent, mild (3) Panic attacks: Code(s): F41.0 - Panic disorder [episodic paroxysmal anxiety] Category: Medical Plan .
== END 2024-10-31 14:36 | disposition home or self-care (01) ==
LOC: HO.HMCFM 12:45
PROVIDERS: PCP Nurse Practitioner Family; Visit Provider Nurse Practitioner Family
DX: F41.1 Generalized anxiety disorder (principal); F33.0 Major depressive disorder, recurrent, mild; F41.0 Panic disorder [episodic paroxysmal anxiety]

== ENCOUNTER → 2024-10-31 12:45 | Outpatient (BNVA) | payer BC, SELFPAY | PROVIDERS: PCP Nurse Practitioner Family; Visit Provider Nurse Practitioner Family | DX: F41.1 Generalized anxiety disorder (principal); F33.0 Major depressive disorder, recurrent, mild; F41.0 Panic disorder [episodic paroxysmal anxiety]; M25.512 Pain in left shoulder; K21.9 Gastro-esophageal reflux disease without esophagitis | CPT/HCPCS: 98968 ==

== ENCOUNTER 2024-11-15 15:28 | Outpatient (AMB) | payer BC, SELFPAY ==
--- NOTE | 2024-11-15 15:29 | A.OFFPC_ITS ---
Vital Signs 11/15/24 15:32 Height 6 ft Weight 189 lb 4 oz BMI 25.7 BP 118/70 Blood Pressure Location Lt brachial Position Sitting Respiration 12 Pulse 93 Pulse Source Pulse Oximeter Temp 97.4 F Temp Source Oral Pulse Oximetry (%) 99 Oxygen Delivery Method Room Air Intake Visit Reasons: FU Anxiety Intake Note: Follow up on anxiety. Patient is requesting adhd meds. Admissions Officer Required: No Allergies No Known Allergies Allergy (Verified 11/15/24 15:31) Medication List - Last Reconciled 11/15/24 by Rayna King, [employer]- desvenlafaxine succinate ER 25 mg PO DAILY desvenlafaxine succinate ER 50 mg PO DAILY hydroxyzine HCl 50 mg (2 x 25 mg) PO BEDTIME PRN Tobacco use date assessed: 11/15/24 Dental Screening Dental Screen Date: 11/15/24 Did you have a dental visit in the last 12 months?: Yes Did you have a dental problem in the last 6 months where you did not have access to dental care?: No Was dental information given to patient?: Patient has dentist HPI HPI Comments History of Present Illness Details 34 Year old male with chronic left shoul ayush pain, GERD, MDD, ALISA s/p dental extraction 09/2023 Social: works for [employer] Maintenance: [employer] 07/06/2017 History of Present Illness - The patient is a 34-year-old male pres enting with generalized anxiety disorder and medication concerns. - Has significant emotional distress fro m perceived privacy breaches and unauthorized records access. - Difficulty with personal care and pet management since losing caregiver support. - He reports Past childhood misdiagnosis of OCD & trouble reading, has these reports but i did not review them today. - Dissatisfied with antidepressants; pedro luis ires discontinuation. - Negative experiences with therapist le d to refusal of further counseling. - Discussed workplace stress, potential legal issues, and seeks psychiatry over counseling. Specifically today, he was scheduled for a telehealth appt. He however came into the office. I changed my schedule to accommodate him. He comes w/ a HG&E form requesting me to complete for him certifying a serious illness which requires electricity. Him today that he does not have a serious illness which requires electricity and therefore I can not fill this form out. Explained to him the details of this. He is having a hard time listening to me, talking over me, rummaging through multiple papers that he has. He has sent me multiple portal messages some which include his therapist calling him a transgender, request for mood stabilizer and was recently request for ADHD medications. He wants me to review all of his evidence talking about litigation against his employer using EEOC. I advised him that I do not need to see his evidence and that I believe him. He pulls out a document, holds it to my face and asks me to read it. I asked where, he pointed to Job Description which i read. He told me to keep reading, I told him I didnt have time to read through all of this and to show me what he wanted me to see. He pointed to the next line which says Job Code followed by a number . 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 They shouldnt have access to this and they do . I do not see any relevance to this document that he shows me. And attempted to redirect the visit. He then tells me that he needs to be off all of this medication as he does not like the way that it makes him feel. I advised for him that he needs this medication. He states that he started to take the hydroxyzine and that he is out now. I reviewed our last visit together and he reports that he has been taking it right along. I am really unsure if he is or is not taking his medications. He is tearful and frantic. He is perseverating about missed diagnoses and need for treatment specifically asking for ADHD medications. I advised for him to see a psychiatrist or a mental health professional who could appropriately diagnose and treat him. Explain the difference between a counselor and a psychiatrist. He then looks at me & says that when the EE does not find best by at fault for his anxiety, who do you think they will blame, Rayna? Who will they come after? . I told him I do not know the answer to his question and he replied, You. You will be at fault for this. For all of this. At this time, I told him i was no longer comfortable w/ the way he was talking to me and insinuating a law suit involving me. I told him I have believed him and have helped support him for several years & am not sure where this is coming from. Either way, I am not comfortable providing care given this event. I have told him he needs to fu with the community navigator who can help connect him w/ resources, specifically a Psychiatrist. I provided a warm hand off to the in office Community Won. who is going to have a brief intervention with him. He will also need to est care w/ a new provider. Review of Systems - Psychiatric: Reports anxiety, emotiona l distress, fear due to perceived privacy invasion, difficulty with daily activities, dissatisfaction with medication, and mistrust in counseling services. Declines psychosis and substance use. - Social: Reports inability to care for pets and maintain personal hygiene. Discusses workplace and personal life stressors. Physical Exam awake alert, ear buds in Mood wildly vacillating between subdued and flat to expansive and yelling, tearful Discussion Notes We reviewed the patient's concerns regarding his generalized anxiety disorder and dissatisfaction with current treatments. I acknowledged his distress about privacy issues and the impact on his daily life. We discussed the need for psychiatric evaluation for accurate diagnosis and effective treatment planning. I explained that continuity with counseling is often required before psychiatric consultations, a point the patient vehemently opposed due to prior negative experiences. The patient was advised that acquiring necessary documentation and engaging a qualified psychiatrist could provide an opportunity for appropriate diagnostic assessments and medication management. Although he has documentation of past diagnoses and engagements, I reinforced that a reconstructed therapeutic relationship could aid in managing his condition better. I aimed to reassure and aid the patient in navigating this complex situation with our behavioral health coordinator's involvement. Patient voiced understanding but expressed frustration, highlighting concerns about systemic issues and existing legal matters. Patient was given time to ask questions. All questions were answered to their satisfaction. Assessment and Plan 1. Generalized Anxiety Disorder - Plan for psychiatric evaluation and re ferral. - Discuss importance of medication revie w and continuation of supportive measures. 2. Emotional Distress - Suggest support from mental health pro fessionals, focus on psychiatric evaluation. 3. Medication Dissatisfaction - Consider psychiatric evaluation for an tidepressant therapy review. Patient Instructions - Seek psychiatric evaluation for proper diagnosis and treatment plan. - Collect all relevant documentation to assist in psychiatric assessment. - Contact the behavioral health coordina [facility] for further steps in accessing psychiatric services. Consent Patient was informed and verbally consented to the use of an ambient scribe for clinic note documentation during this visit. Total time spent caring for the patient today was 45 minutes. This includes time spent before the visit reviewing the chart, time spent during the visit, and time spent after the visit on documentation, reviewing laboratory results, diagnostic imaging, medications, performing a medically necessary evaluation, counseling on diagnoses, care coordination, ordering appropriate tests, ordering appropriate medications, review of tests performed by other providers, reporting test results with the patient, communication with other healthcare providers. PFSH Surgical History (Updated 10/21/23 @ 11:44 by Juliet Pino MA) H/O tooth extraction Family History (Updated 10/21/23 @ 11:33 by Juliet Pino MA) Mother FH: mental illness Father FH: mental illness Social History (Updated 12/30/23 @ 11:34 by Cat Lafleur MA) Household Members: Significant Other Both parents involved: No Caregiver staying overnight: No Housing: House Are you a primary manager managed care to a significant other at home: No Do you presently have visiting nurse or other home services: No 75 years or older and lives alone: No Alcohol intake: current Alcohol intake frequency: a few times a month Alcohol type: beer Patient Tobacco Use Status: Never used Tobacco e-Cigarette/Vaping Use: Never Used Second Hand Smoke Exposure: No Substance Use Type: Marijuana service: No Current occupational status: employed 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 Sage Marinelli, Amaya Horan, Sd Martinez and colleagues, with an educational kayley from [employer] Physical exam (Primary Care) Vital Signs: Last Vital Signs Temp 97.4 F 11/15/24 15:32 Pulse 93 11/15/24 15:32 Resp 12 11/15/24 15:32 BP 118/70 11/15/24 15:32 Pulse Ox 99 11/15/24 15:32 Oxygen Delivery Method Room Air 11/15/24 15:32 BMI result Body Mass Index 25.7 Tobacco/Smoking Status: Tobacco use Status Tobacco use date assessed 11/15/24 11/15/24 15:34 Patient Tobacco Use Status Never used Tobacco 11/15/24 15:34 e-Cigarette/Vaping Use Never Used 11/15/24 15:34 Thrive Assessment: Date of Thrive Assessment Date Thrive assessed 05/04/24 11/15/24 15:34 Coding Level of Care Code Est Pt Level 5 (84495) Complex EM visit Add On G2211 Diagnoses ALISA (generalized anxiety disorder) F41.1 Severe episode of recurrent major depressive disorder, with psychotic features F33.3 Major depression recurrence: recurrent Active/Remission status: currently active Major depression episode severity: severe Psychotic features: with psychotic features Panic attacks F41.0 Assessment & Plan Assessment & Plan (1) ALISA (generalized anxiety disorder): Code(s): F41.1 - Generalized anxiety disorder Category: Medical (2) MDD (major depressive disorder): Code(s): F32.9 - Major depressive disorder, single episode, unspecified Category: Medical Qualifiers: Major depression recurrence: recurrent Active/Remission status: currently active Major depression episode severity: severe Psychotic features: with psychotic features Qualified Code(s): F33.3 - Major depressive disorder, recurrent, severe with psychotic symptoms (3) Panic attacks: Code(s): F41.0 - Panic disorder [episodic paroxysmal anxiety] Category: Medical Plan . Patient Instructions: [place] [facility] Lifeline: Available 24 hours a day, 7 days a week, 365 days a year Dial 988 with any telephone to speak to someone immediately [address] [address] , Walk ins [facility] (Mental / Behavioral health therapist: [address], [place] [id number] [facility] ([facility] at [facility]: [address] [place] [address] Open from 10am - 12pm (walk ins gilmer) [facility] Crisis Services: [address] [place] [address] Walk in hours from 10am - 12pm Behavioral health Network: [address] [place] [address] [place] [phone] Thursday through Thursday 8am - 8pm Thursday and Thursday 9am - 5pm Crisis Hotlines Suicide prevention, domestic violence, and other crisis hotlines for youth, young adults, and their friends and families. [facility] Safeline: The [facility] Safeline helps youth who have run away, are thinking about running away, or who already ran away but are ready to come home. Parents and guardians can also contact the hotline if they are worried about their child running away or if their child has already left home. The hotline is available 24 hours a day, seven days a week. Youth, parents, and guardians can also use the online chat feature on the [facility]'s website to ask for help and get support, [place] [address]. [place] [facility] National Suicide Prevention Lifeline: The [place] Suicide Prevention Lifeline is a network of local crisis centers that are available 03/11 to provide support for youth and adults who are in any kind of emotional crisis. In addition to the main hotline number listed above, there are several other numbers to call depending on your needs: Fijian Language: Deaf and Hard of [phone] Veterans: Disaster Distress: Anyone can also use their online chat feature on their website. [place] Suicide Prevention Lifeline [facility] Helpline: The [facility] Helpline is available to anyone in [place] who is need of emotional support. Anyone can call or text the helpline to receive help from specially trained volunteers. [place] high school and college students can also get online support through the [employer]_ program. For high school students, volunteers ages 15-18 are available Thursday- from 6-9PM. For college students, [employer]_ is available Thursday-Thursday from 5-9PM. The Yamil Project - The [employer] Project is a 03/11 crisis intervention and suicide prevention hotline for LGBTQ youth. Youth can also text Yamil to for support, or use the online chat feature on the [employer] Project's website. [employer] is available Thursday-Thursday between 3-10PM. [employer] is available seven days a week between 3-10PM. SafeLink: SafeLink is for anyone who is being affected by domestic violence or dating violence. Volunteers at [employer] speak Omani and Fijian, and [employer] also has a service that can provide translation in more than 130 languages. TTY:
[2024-11-15 15:32] VITALS: BP 118/70; PULSE 93; RESP 12; TEMP 36.3; O2SAT 99; BMI 25.7
== END 2024-11-15 16:30 | disposition home or self-care (01) ==
PROVIDERS: PCP Nurse Practitioner Family; Visit Provider Nurse Practitioner Family
DX: F41.1 Generalized anxiety disorder (principal); F33.3 Major depressive disorder, recurrent, severe with psychotic symptoms; F41.0 Panic disorder [episodic paroxysmal anxiety]

== ENCOUNTER 2025-01-25 18:21 | Inpatient (IN) | payer BC, SELFPAY ==
--- NOTE | ~2025-01-25 | XR_ITS ---
CLINICAL HISTORY: Cough, pleuritic chest pain, rule out pneumonia 2 view chest x-ray Comparison: None provided Findings: No consolidation or effusion. Heart size is normal. No acute fracture. IMPRESSION: 1. No acute findings. This document has been electronically signed by: James Casanova MD on 01/25/2025 20:23:30
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
[2025-01-25 19:14] VITALS: BP 138/72; PULSE 77; RESP 16; O2SAT 97; BMI 23.1
[2025-01-25 19:22] VITALS: RESP 16
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
[2025-01-25 19:37] LABS: MANUAL DIFF FLAG NO
[2025-01-25 19:40] LABS: Hematocrit 42.2 % (42.0-52.0); Hemoglobin 13.9 g/dl (14.0-18.0); Imm Gran Abs Auto 0.03 X10*3/uL (0.00-0.03); Imm Gran Pct Auto 0.3 % (0.0-0.4); Lymphocytes Absolute Auto 1.8 X10*3/uL (1.2-4.9); Mean Corpuscular HGB Conc 32.9 g/dl (31.0-36.0); Mean Corpuscular Hemoglobin 28.7 pg (27.0-33.0); Mean Corpuscular Volume 87.2 fL (80.0-98.0); NRBC Abs Auto 0.000 X10*3/uL (0.0-0.012); NRBC Pct Auto 0.0 /100WBC (0.0-0.2); Platelet Count 280 X10*3/uL (160-400); Red Blood Count 4.84 X10*6/uL (4.60-5.80); White Blood Count 10.8 X10*3/uL (4.8-10.8)
[2025-01-25 19:41] LABS: Appearance Urine Clear; Glucose Urine UA Negative (Negative); PH 7.5 (5.0-9.0); Specific Gravity - Urine 1.020 (1.005-1.025)
[2025-01-25 19:45] VITALS: BP 141/78; PULSE 75; RESP 16; TEMP 37.3; O2SAT 100
[2025-01-25 19:52] LABS: Cannabinoid Screen Urine POSITIVE (Not Detect)
[2025-01-25 19:54] LABS: Alanine Aminotransferase 68 U/L (0-40); Albumin Level 4.7 g/dL (3.5-5.0); Alkaline Phosphatase 72 U/L (39-117); Anion Gap 12 (12-20); Aspartate Amino Transferase 42 U/L (5-37); Blood Urea Nitrogen 5 mg/dL (9-16); Calcium 9.1 mg/dL (8.4-10.2); Carbon Dioxide 28 mmol/L (22-29); Chloride 108 mmol/L (96-108); Creatinine Clr Calc Pharmacy 129.0; Estimated Glomerular Filt Rate > 60; Potassium 3.9 mmol/L (3.3-5.1); Sodium 144 mmol/L (135-145); Total Protein 7.0 g/dL (6.5-8.0)
[2025-01-25 20:25] LABS: COVID-19 Test Negative (Negative); IDNOW Serial# 58CA691E
[2025-01-25 20:27] LABS: IDNOW Serial# 55D5AD1C; Influenza B2 Negative (Negative)
--- NOTE | 2025-01-25 22:09 | PC.NURSE ---
Pt now an inpatient bedsearch, no apparent distress noted, resting in bed at this time
[2025-01-26 03:15] LABS: Resp Syncy Virus RNA Qual PCR NEGATIVE (Negative); SARS COV2 PCR INHOUSE NEGATIVE (Negative)
--- NOTE | 2025-01-26 07:42 | ECG_ITS ---
Test Reason : r/o prolonged qt Blood Pressure : */* mmHG Vent. Rate : 71 BPM Atrial Rate : 71 BPM P-R Int : 138 ms QRS Dur : 74 ms QT Int : 368 ms P-R-T Axes : 56 50 41 degrees QTcB Int : 399 ms Normal sinus rhythm Normal ECG No previous ECGs available Referred By: Lakshmi Barone Electronically Signed By: Moisés Harding
--- NOTE | 2025-01-26 09:27 | PC.NURSE ---
Assumed care, report received. Pt is awake, he eats breakfast and stays in his room, he is calm and cooperative.
[2025-01-26 10:52] VITALS: BP 163/81; PULSE 99; RESP 19; TEMP 36.6; O2SAT 96
[2025-01-26 11:20] VITALS: BP 139/86; PULSE 89; RESP 18; TEMP 36.8; O2SAT 95
[2025-01-26 12:10] VITALS: BMI 24.5
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
[2025-01-26 20:00] VITALS: BP 123/71; PULSE 72; RESP 20; TEMP 37.4; O2SAT 99
[2025-01-27 08:00] VITALS: BP 126/85; PULSE 80; RESP 16; TEMP 36.8; O2SAT 99
--- NOTE | 2025-01-27 08:31 | P.CONHOSP_ITS ---
History of Present Illness Data of Consult Service Date: 01/27/25 Primary Care Provider: Unknown Physician HPI Reason for consult: Medical consult 34-year-old male with a past medical history of depression with suicidal ideation, bipolar disorder, panic attacks, GERD, major depressive disorder, history of KELLEY, chronic left shoulder pain presented to the emergency department with increased depression and suicidal ideation. Patient has had several social stressors recently had not eaten in several days due to not having any money. In the ED his CBC was normal, slightly elevated AST and ALT, urinalysis was negative, U tox was positive for marijuana which is consistent with his daily use, ethanol level was below detectable limits, COVID and flu were negative. His chest x-ray was negative. He was medically cleared and admitted to inpatient psych for further care. On exam he denies any medical concerns except for pain in his right foot. Review of Systems 2 Review of Systems: Denies any shortness of breath, chest pain, palpitations, dizziness, lightheadedness, headaches, dysuria, abdominal pain or discomfort, nausea, vomiting or diarrhea. Denies chills, body aches, muscle aches, fatigue or weight loss. [facility] Family History (Updated 10/21/23 @ 11:33 by Juliet Pino MA) Mother FH: mental illness Father FH: mental illness Surgical History (Updated 10/21/23 @ 11:44 by Juliet Pino MA) H/O tooth extraction Social History (Updated 12/30/23 @ 11:34 by Cat Lafleur MA) Household Members: None Housing: Apartment Are you a primary day care aide to a significant other at home: No Do you presently have visiting nurse or other home services: No Alcohol intake: current Alcohol intake frequency: a few times a month Alcohol type: beer Patient Tobacco Use Status: Never used Tobacco Smoked in Last 30 Days: No e-Cigarette/Vaping Use: Never Used Second Hand Smoke Exposure: No Use of substances other than those prescribed or required for medical reasons: Yes Substance Use Type: Marijuana Substance Use Frequency: Chronic Longstanding Currently Displaying Signs/Symptoms of Drug Intoxication Withdrawal: No Spiritual Healthcare Practices: n/a Restoration Healthcare Practices: n/a Cultural Healthcare Practices: n/a Advance Directives: No Advance Directives Information Provided: No Do you have thoughts of harming others: None Do you have a plan to hurt others: No Plan Recently lost weight without trying: Unsure How much weight loss: 2-13 pounds Eating poorly because of decreased appetite: Yes Nutrition screen score: 4 Nutrition Risks: Poor intake 0-25% >4 days Poor oral hygiene: No service: No Current occupational status: employed 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 Current occupational exposures/hazards: No Sexual orientation: Straight/Heterosexual Cognitive needs: No Hearing needs: No Vision needs: Yes Meds Allergies Allergy/AdvReac Type Severity Reaction Status Date / Time No Known Allergies Allergy Verified 01/25/25 19:22 Active Medications: Current Medications Acetaminophen (Acetaminophen 325 Mg Tablet) 650 mg PO Q6H PRN PRN Reason: Headache/Pain, Scale 1-10 Last Admin: 01/26/25 20:17 Dose: 650 mg Al Hydroxide/Mg Hydroxide (Magnesium Hydrox/Alum Hydrox 30 Ml Oral.Susp) 30 ml PO Q6H PRN PRN Reason: Heartburn/Nausea Divalproex Sodium (Divalproex Sodium Er 500 Mg Tab.Er.24h) 500 mg PO BEDTIME VINAY Last Admin: 01/26/25 20:15 Dose: 500 mg Hydroxyzine HCl (Hydroxyzine Hcl 25 Mg Tablet) 25 mg PO Q6H PRN PRN Reason: mild anxiety Last Admin: 01/26/25 14:21 Dose: 25 mg Ibuprofen (Ibuprofen 600 Mg Tablet) 600 mg PO Q8H PRN PRN Reason: Pain, Moderate(Pain Scale 4-6) Magnesium Hydroxide (Milk Of Magnesia 30 Ml Oral.Susp) 30 ml PO DAILY PRN PRN Reason: Constipation Nicotine Polacrilex (Nicotine Polacrilex 2 Mg Gum) 4 mg BUCCAL Q2H PRN PRN Reason: Nicotine Cravings Olanzapine (Olanzapine 5 Mg Tablet) 5 mg PO Q4H PRN PRN Reason: agitation Trazodone HCl (Trazodone Hcl 50 Mg Tablet) 50 mg PO BEDTIME MRX1 PRN PRN Reason: Insomnia Last Admin: 01/26/25 20:15 Dose: 50 mg Physical Exam 2 Vital Signs and Narrative: Vital Signs: Last Vital Signs Temp 98.2 F 01/27/25 08:00 Pulse 80 01/27/25 08:00 Resp 16 01/27/25 08:00 BP 126/85 01/27/25 08:00 Pulse Ox 99 01/27/25 08:00 O2 Del Method Room Air 01/27/25 08:00 BMI result Body Mass Index 24.5 CONST: Alert and oriented, in NAD. Well nourished HEENT: Normocephalic, atraumatic, MMM, Eyes clear, Neck supple RESP: Lungs clear, RRR even and regular HEART:,RRR, S1, S2. No edema GI:Abdomen Soft NT, ND. + BS times four :Deferred SKIN: Warm dry and intact, no visible lesions or rashes NEURO:CN II-XII Intact bilaterally, Sensation intact. Speech clear PSYCH: Normal affect, calm and cooperative Results Labs 01/25/25 19:25 01/27/25 08:10 Assessment and Plan (1) GERD without esophagitis: Status: Acute Plan 34-year-old male with past medical history listed below, admitted for stabilization after presented to the ED with increased depression and suicidal ideation Suicidal ideation/Bipolar disorder/Panic attacks/MDD Treatment plan per Psychiatry GERD Maalox as needed Right foot pain Lidoderm gel Q6 p.r.n. History of KELLEY Labs stable Thank you for allowing me to participate in the care of this patient. Will follow with you, please notify medical provider with any changes in condition or concerns.
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
[2025-01-27 08:57] LABS: Hemoglobin A1C 123.2416 umol/L; Total Hemoglobin (HGBA1C) 3634.1150 umol/L
[2025-01-27 09:22] LABS: Albumin Level 4.8 g/dL (3.5-5.0); Alkaline Phosphatase 74 U/L (39-117); Anion Gap 14 (12-20); Aspartate Amino Transferase 32 U/L (5-37); Blood Urea Nitrogen 9 mg/dL (9-16); Calcium 9.7 mg/dL (8.4-10.2); Carbon Dioxide 29 mmol/L (22-29); Chloride 107 mmol/L (96-108); Cholesterol 194 mg/dL (<200); Creatinine Clr Calc Pharmacy 136.0; Estimated Glomerular Filt Rate > 60; HDL Cholesterol 39 mg/dL (>40); Potassium 4.6 mmol/L (3.3-5.1); Sodium 145 mmol/L (135-145); Total Protein 7.2 g/dL (6.5-8.0); Triglycerides 118 mg/dL (<150)
[2025-01-27 09:43] LABS: Alanine Aminotransferase 63 U/L (0-40)
[2025-01-27 20:00] VITALS: BP 134/79; PULSE 91; RESP 17; TEMP 36.4; O2SAT 97
[2025-01-28 08:00] VITALS: BP 143/83; PULSE 80; RESP 20; TEMP 37.1; O2SAT 99
[2025-01-28 20:00] VITALS: BP 124/78; PULSE 99; RESP 18; TEMP 36.9; O2SAT 98
--- NOTE | 2025-01-28 20:35 | P.PNPSI_ITS ---
Subjective Subjective Date of Service: 01/28/25 Reason For Visit: SI Subjective Notes: 3 Day Healthcare Proxy: No Guardianship: No Medical Problems Affecting Mental Status: No Interim History: Medical record and nursing notes reviewed; case discussed during rounds with team/nursing staff, and met with patient for supportive therapy/psychoeducation, as well as medication management. Patient slept well, compliant with medications. Reports for anxiety, and has been his phone and crying today as his ex-girlfriend's is leaving for [place] that he can not a hold of her. Denies other safety concerns. He has been utilize a lot of PRNs for anxiety. Discussed with the patient about getting high dose but last medication on the list regarding Zyprexa answer. Patient good like to have Seroquel increased in dose and frequent. Will discontinue Zyprexa. And increases Vistaril up to 50mg PRN. Is pleasant and cooperative, appeared to be anxious and depressed. Encourage groups to learn coping skills Medication Compliance: Yes Side effects from medications: No Attending Groups: Intermittent Review of Systems Acute medical concerns: No Medical Review of Systems: unchanged Review of Systems Review of Systems Denies any shortness of breath, chest pain, palpitations, dizziness, lightheadedness, headaches, dysuria, abdominal pain or discomfort, nausea, vomiting or diarrhea. Denies chills, body aches, muscle aches, fatigue or weight loss. Yes all other systems are reviewed and are negative Mental Status Exam Mental Status Exam Narrative: Pt is alert and oriented; behavior is cooperative, anxious, tearful; dressed in casual attire; mood is described as depressed and anxious ; eye contact appropriate; Speech is normal rate, normal volume and pressured; thought process is racing; Thought content is on tx; denies SI/HI/VH/AH. Diagnostics Vital Signs (24Hr): Vital Signs - 24 hr 01/28/25 08:00 Temperature 98.8 F Pulse Rate 80 Respiratory Rate 20 Blood Pressure 143/83 H Pulse Oximetry 99 Oxygen Delivery Method Room Air BMI result Body Mass Index 24.5 Labs 01/25/25 19:25 01/27/25 08:10 Labs: Laboratory Results - last 48 hr 01/27/25 08:10 Sodium 145 Potassium 4.6 Chloride 107 Carbon Dioxide 29 Anion Gap 14 BUN 9 Creatinine 0.84 Estim Creat Clear Calc 136.0 Estimated GFR > 60 Random Glucose 111 Estimat Average Glucose 105 Hemoglobin A1c % 5.3 Calcium 9.7 D Total Bilirubin 0.5 AST 32 ALT 63 H Alkaline Phosphatase 74 Total Protein 7.2 Albumin 4.8 Triglycerides 118 Cholesterol 194 LDL Cholesterol, Calc 132 H HDL Cholesterol 39 L Medications Medications Current Medications Acetaminophen (Acetaminophen 325 Mg Tablet) 650 mg PO Q6H PRN PRN Reason: Headache/Pain, Scale 1-10 Last Admin: 01/27/25 16:00 Dose: 650 mg Al Hydroxide/Mg Hydroxide (Magnesium Hydrox/Alum Hydrox 30 Ml Oral.Susp) 30 ml PO Q6H PRN PRN Reason: Heartburn/Nausea Divalproex Sodium (Divalproex Sodium Er 500 Mg Tab.Er.24h) 1,000 mg PO BEDTIME VINAY Last Admin: 01/28/25 20:22 Dose: 1,000 mg Hydroxyzine HCl (Hydroxyzine Hcl 50 Mg Tablet) 50 mg PO Q6H PRN PRN Reason: mild anxiety Last Admin: 01/28/25 17:14 Dose: 50 mg Ibuprofen (Ibuprofen 600 Mg Tablet) 600 mg PO Q8H PRN PRN Reason: Pain, Moderate(Pain Scale 4-6) Last Admin: 01/28/25 20:23 Dose: 600 mg Lidocaine (Lidocaine 5 % Ointment 35 Gm) 1 appl TOPICAL Q6H PRN; Protocol PRN Reason: Right foot pain Last Admin: 01/28/25 20:22 Dose: 1 appl Magnesium Hydroxide (Milk Of Magnesia 30 Ml Oral.Susp) 30 ml PO DAILY PRN PRN Reason: Constipation Nicotine Polacrilex (Nicotine Polacrilex 2 Mg Gum) 4 mg BUCCAL Q2H PRN PRN Reason: Nicotine Cravings Quetiapine Fumarate (Quetiapine Fumarate 50 Mg Tablet) 50 mg PO TID PRN PRN Reason: Anxiety Last Admin: 01/28/25 20:22 Dose: 50 mg Trazodone HCl (Trazodone Hcl 50 Mg Tablet) 50 mg PO BEDTIME MRX1 PRN PRN Reason: Insomnia Last Admin: 01/27/25 23:12 Dose: 50 mg Allergies Allergies Allergy/AdvReac Type Severity Reaction Status Date / Time No Known Allergies Allergy Verified 01/25/25 19:22 Assessment & Plan Assessment & Plan (1) GERD without esophagitis: Status: Acute Code(s): K21.9 - Gastro-esophageal reflux disease without esophagitis Plan Plan Patient is a 34-year-old male with hx of mood disorder, who presented to ER via ambulance due to suicidal ideation with a plan to crash his truck into a tree secondary to financial concerns and stopping his medication 3-4 days ago. Plan: CV 15 minute safety checks Obtain collateral Start: Depakote ER 500mg PO bedtime. Currently at 1,000mg Referral to outpatient psychiatric providers Encourage groups Discharge planning GERD Maalox as needed Right foot pain Lidoderm gel Q6 p.r.n. History of [facility] Labs stable 01/27: Active on unit. social with select peers. attending some groups. labile. tearful. Patient reports high anxiety; pt stated, I'm trying to go to groups and go through this process . Continues to report racing thoughts. denies side effects from Depakote. denies SI/HI/VH/AH. 3 day up 01/31/25. Depakote increased to 1000mg PO bedtime; pt aware. Start: Seroquel 25 mg PO BID PRN 01/28/25: Patient slept well, compliant with medications. Reports for anxiety, and has been his phone and crying today as his ex-girlfriend's is leaving for [place] that he can not a hold of her. Denies other safety concerns. He has been utilize a lot of PRNs for anxiety. Discussed with the patient about getting high dose but last medication on the list regarding Zyprexa answer. Patient good like to have Seroquel increased in dose and frequent. Will discontinue Zyprexa. And increases Vistaril up to 50mg PRN. Is pleasant and cooperative, appeared to be anxious and depressed. Encourage groups to learn coping skills Increase Seroquel from 25 mg b.i.d. to 50 t.i.d. PRNs for severe anxiety/agitation Discontinue the Zyprexa PRNs: Avoid multi medications. Increase hydroxyzine up to 50 mg q.6 hours p.r.n. for anxiety. Patient educated on: diagnosis, medication risk/benefits, substance abuse and therapeutic strategies Informed Consent: understands and further education needed Reason for continued inpatient stay Substantial Risk for: med/psych decompensation Time Spent With Patient Time: Total time managing care of this patient today ____ minutes.
[2025-01-29 08:00] VITALS: BP 138/93; PULSE 80; RESP 16; TEMP 36.3; O2SAT 99
[2025-01-29 08:14] VITALS: BP 138/93; PULSE 80; RESP 16; TEMP 36.3; O2SAT 99
--- NOTE | 2025-01-29 13:19 | P.PNPSI_ITS ---
Subjective Subjective Date of Service: 01/29/25 Reason For Visit: SI Subjective Notes: 3 Day Healthcare Proxy: No Guardianship: No Medical Problems Affecting Mental Status: No Interim History: Medical record and nursing notes reviewed; case discussed during rounds with team/nursing staff, and met with patient for supportive therapy/psychoeducation, as well as medication management. Patient slept for 8 hours, compliant with meds. Denies side effects. Took PRN Seroquel yesterday but not today prior meeting with this provider. Report Adderall and THC are the two that help his mind straight and as coping skills. Report Sundays always bad day to him related to trauma issues. He says being in here made him missing being outside which is not helpful to him. Do not want to retract 3 day notice. .Report anxiety and depression are better compared to yesterday. Went out to [facility]. Pleasant and cooperative. Need to learn coping skills. Medication Compliance: Yes Side effects from medications: No Attending Groups: No Review of Systems Acute medical concerns: No Medical Review of Systems: unchanged Review of Systems Review of Systems Denies any shortness of breath, chest pain, palpitations, dizziness, lightheadedness, headaches, dysuria, abdominal pain or discomfort, nausea, vomiting or diarrhea. Denies chills, body aches, muscle aches, fatigue or weight loss. Yes all other systems are reviewed and are negative Mental Status Exam Mental Status Exam Narrative: Pt is alert and oriented; behavior is cooperative; dressed in casual attire; mood is described as depressed and anxious but improved ; eye contact appropriate; Speech is normal rate, normal volume and pressured; thought process is racing; Thought content is on tx/ discharge; denies SI/HI/VH/AH. Diagnostics Vital Signs (24Hr): Vital Signs - 24 hr 01/28/25 20:00 01/29/25 08:00 01/29/25 08:14 Temperature 98.5 F 97.3 F 97.3 F Pulse Rate 99 80 80 Respiratory Rate 18 16 16 Blood Pressure 124/78 138/93 H 138/93 H Pulse Oximetry 98 99 99 Oxygen Delivery Method Room Air Room Air BMI result Body Mass Index 24.5 Labs 01/25/25 19:25 01/27/25 08:10 Medications Medications Current Medications Acetaminophen (Acetaminophen 325 Mg Tablet) 650 mg PO Q6H PRN PRN Reason: Headache/Pain, Scale 1-10 Last Admin: 01/27/25 16:00 Dose: 650 mg Al Hydroxide/Mg Hydroxide (Magnesium Hydrox/Alum Hydrox 30 Ml Oral.Susp) 30 ml PO Q6H PRN PRN Reason: Heartburn/Nausea Divalproex Sodium (Divalproex Sodium Er 500 Mg Tab.Er.24h) 1,000 mg PO BEDTIME VINAY Last Admin: 01/28/25 20:22 Dose: 1,000 mg Hydroxyzine HCl (Hydroxyzine Hcl 50 Mg Tablet) 50 mg PO Q6H PRN PRN Reason: mild anxiety Last Admin: 01/28/25 17:14 Dose: 50 mg Ibuprofen (Ibuprofen 600 Mg Tablet) 600 mg PO Q8H PRN PRN Reason: Pain, Moderate(Pain Scale 4-6) Last Admin: 01/28/25 20:23 Dose: 600 mg Lidocaine (Lidocaine 5 % Ointment 35 Gm) 1 appl TOPICAL Q6H PRN; Protocol PRN Reason: Right foot pain Last Admin: 01/28/25 20:22 Dose: 1 appl Magnesium Hydroxide (Milk Of Magnesia 30 Ml Oral.Susp) 30 ml PO DAILY PRN PRN Reason: Constipation Nicotine Polacrilex (Nicotine Polacrilex 2 Mg Gum) 4 mg BUCCAL Q2H PRN PRN Reason: Nicotine Cravings Quetiapine Fumarate (Quetiapine Fumarate 50 Mg Tablet) 50 mg PO TID PRN PRN Reason: Anxiety Last Admin: 01/28/25 20:22 Dose: 50 mg Trazodone HCl (Trazodone Hcl 50 Mg Tablet) 50 mg PO BEDTIME MRX1 PRN PRN Reason: Insomnia Last Admin: 01/27/25 23:12 Dose: 50 mg Allergies Allergies Allergy/AdvReac Type Severity Reaction Status Date / Time No Known Allergies Allergy Verified 01/25/25 19:22 Assessment & Plan Assessment & Plan (1) GERD without esophagitis: Status: Acute Code(s): K21.9 - Gastro-esophageal reflux disease without esophagitis Plan Plan Patient is a 34-year-old male with hx of mood disorder, who presented to ER via ambulance due to suicidal ideation with a plan to crash his truck into a tree secondary to financial concerns and stopping his medication 3-4 days ago. Plan: CV 15 minute safety checks Obtain collateral Start: Depakote ER 500mg PO bedtime. Currently at 1,000mg Referral to outpatient psychiatric providers Encourage groups Discharge planning GERD Maalox as needed Right foot pain Lidoderm gel Q6 p.r.n. History of [facility] Labs stable 01/27: Active on unit. social with select peers. attending some groups. labile. tearful. Patient reports high anxiety; pt stated, I'm trying to go to groups and go through this process . Continues to report racing thoughts. denies side effects from Depakote. denies SI/HI/VH/AH. 3 day up 01/31/25. Depakote increased to 1000mg PO bedtime; pt aware. Start: Seroquel 25 mg PO BID PRN 01/28/25: Patient slept well, compliant with medications. Reports for anxiety, and has been his phone and crying today as his ex-girlfriend's is leaving for [place] that he can not a hold of her. Denies other safety concerns. He has been utilize a lot of PRNs for anxiety. Discussed with the patient about getting high dose but last medication on the list regarding Zyprexa answer. Patient good like to have Seroquel increased in dose and frequent. Will discontinue Zyprexa. And increases Vistaril up to 50mg PRN. Is pleasant and cooperative, appeared to be anxious and depressed. Encourage groups to learn coping skills Increase Seroquel from 25 mg b.i.d. to 50 t.i.d. PRNs for severe anxiety/agitation Discontinue the Zyprexa PRNs: Avoid multi medications. Increase hydroxyzine up to 50 mg q.6 hours p.r.n. for anxiety. 01/29/25: Patient slept for 8 hours, compliant with meds. Denies side effects. Took PRN Seroquel yesterday but not today prior meeting with this provider. Report Adderall and THC are the two that help his mind straight and as coping skills. Report Sundays always bad day to him related to trauma issues. He says being in here made him missing being outside which is not helpful to him. Do not want to retract 3 day notice. .Report anxiety and depression are better compared to yesterday. Went out to [facility]. Pleasant and cooperative. Need to learn coping skills. Patient educated on: diagnosis, medication risk/benefits and therapeutic strategies Informed Consent: understands and further education needed Reason for continued inpatient stay Substantial Risk for: med/psych decompensation Time Spent With Patient Time: Total time managing care of this patient today ____ minutes.
[2025-01-29 19:24] VITALS: BP 133/84; PULSE 81; RESP 16; TEMP 36.8; O2SAT 97
[2025-01-30 08:30] VITALS: BP 128/78; PULSE 103; RESP 14; TEMP 36.6; O2SAT 98
[2025-01-30 09:52] LABS: Ammonia 41 umol/L (13-55)
[2025-01-30 09:57] LABS: Alanine Aminotransferase 36 U/L (0-40); Albumin Level 5.0 g/dL (3.5-5.0); Alkaline Phosphatase 66 U/L (39-117); Aspartate Amino Transferase 17 U/L (5-37); Total Protein 7.4 g/dL (6.5-8.0)
--- NOTE | 2025-01-30 12:23 | HO.PSYCHPN ---
Subjective Subjective Date of Service: 01/30/25 Reason For Visit: SI Subjective Notes: 3 Day Interim History: Active on unit. social with peers. attending groups. Patient reports feeling better since admission; pt stated, I feel like I'm managing things a lot better . Patient reports he is glad he came to get help ; pt reports he plans on following up with his outpatient provider and being medication compliant. denies SI/HI/VH/AH. denies any side effects from medication. Valproic acid 51.4 on 01/30/25. 3 day up 01/31/25. Medication Compliance: Yes Side effects from medications: No Attending Groups: Yes Mental Status Exam Mental Status Exam Narrative: Pt is alert and oriented; behavior is cooperative and calm; dressed in casual attire; mood is described as good ; eye contact appropriate; Speech is normal rate, volume and not pressured; thought process is organized; Thought content is on discharge; denies SI/HI/VH/AH. Diagnostics Vital Signs (24Hr): Vital Signs - 24 hr 01/29/25 19:24 01/30/25 08:30 Temperature 98.2 F 97.8 F Pulse Rate 81 103 H Respiratory Rate 16 14 Blood Pressure 133/84 128/78 Pulse Oximetry 97 98 Oxygen Delivery Method Room Air Room Air BMI result Body Mass Index 24.5 Labs 01/25/25 19:25 01/27/25 08:10 Labs: Laboratory Results - last 48 hr 01/30/25 09:28 Total Bilirubin 0.2 Direct Bilirubin < 0.2 AST 17 ALT 36 Alkaline Phosphatase 66 Ammonia 41 Total Protein 7.4 Albumin 5.0 Valproic Acid 51.4 Medications Medications Current Medications Acetaminophen (Acetaminophen 325 Mg Tablet) 650 mg PO Q6H PRN PRN Reason: Headache/Pain, Scale 1-10 Last Admin: 01/27/25 16:00 Dose: 650 mg Al Hydroxide/Mg Hydroxide (Magnesium Hydrox/Alum Hydrox 30 Ml Oral.Susp) 30 ml PO Q6H PRN PRN Reason: Heartburn/Nausea Divalproex Sodium (Divalproex Sodium Er 500 Mg Tab.Er.24h) 1,000 mg PO BEDTIME VINAY Last Admin: 01/29/25 21:53 Dose: 1,000 mg Hydroxyzine HCl (Hydroxyzine Hcl 50 Mg Tablet) 50 mg PO Q6H PRN PRN Reason: mild anxiety Last Admin: 01/29/25 23:15 Dose: 50 mg Ibuprofen (Ibuprofen 600 Mg Tablet) 600 mg PO Q8H PRN PRN Reason: Pain, Moderate(Pain Scale 4-6) Last Admin: 01/28/25 20:23 Dose: 600 mg Lidocaine (Lidocaine 5 % Ointment 35 Gm) 1 appl TOPICAL Q6H PRN; Protocol PRN Reason: Right foot pain Last Admin: 01/28/25 20:22 Dose: 1 appl Magnesium Hydroxide (Milk Of Magnesia 30 Ml Oral.Susp) 30 ml PO DAILY PRN PRN Reason: Constipation Nicotine Polacrilex (Nicotine Polacrilex 2 Mg Gum) 4 mg BUCCAL Q2H PRN PRN Reason: Nicotine Cravings Quetiapine Fumarate (Quetiapine Fumarate 50 Mg Tablet) 50 mg PO TID PRN PRN Reason: Anxiety Last Admin: 01/28/25 20:22 Dose: 50 mg Trazodone HCl (Trazodone Hcl 50 Mg Tablet) 50 mg PO BEDTIME MRX1 PRN PRN Reason: Insomnia Last Admin: 01/30/25 00:15 Dose: 50 mg Allergies Allergies Allergy/AdvReac Type Severity Reaction Status Date / Time No Known Allergies Allergy Verified 01/25/25 19:22 Assessment & Plan Assessment & Plan (1) Bipolar disorder: Status: Acute Code(s): F31.9 - Bipolar disorder, unspecified Plan Plan Patient is a 34-year-old male with hx of mood disorder, who presented to ER via ambulance due to suicidal ideation with a plan to crash his truck into a tree secondary to financial concerns and stopping his medication 3-4 days ago. Plan: CV 15 minute safety checks Obtain collateral Start: Depakote ER 500mg PO bedtime. Currently at 1,000mg Referral to outpatient psychiatric providers Encourage groups Discharge planning 01/27: Active on unit. social with select peers. attending some groups. labile. tearful. Patient reports high anxiety; pt stated, I'm trying to go to groups and go through this process . Continues to report racing thoughts. denies side effects from Depakote. denies SI/HI/VH/AH. 3 day up 01/31/25. Depakote increased to 1000mg PO bedtime; pt aware. Start: Seroquel 25 mg PO BID PRN 01/28: Patient slept well, compliant with medications. Reports for anxiety, and has been his phone and crying today as his ex-girlfriend's is leaving for [place] that he can not a hold of her. Denies other safety concerns. He has been utilize a lot of PRNs for anxiety. Discussed with the patient about getting high dose but last medication on the list regarding Zyprexa answer. Patient good like to have Seroquel increased in dose and frequent. Will discontinue Zyprexa. And increases Vistaril up to 50mg PRN. Is pleasant and cooperative, appeared to be anxious and depressed. Encourage groups to learn coping skills Increase Seroquel from 25 mg b.i.d. to 50 t.i.d. PRNs for severe anxiety/agitation Discontinue the Zyprexa PRNs: Avoid multi medications. Increase hydroxyzine up to 50 mg q.6 hours p.r.n. for anxiety. 01/29: Patient slept for 8 hours, compliant with meds. Denies side effects. Took PRN Seroquel yesterday but not today prior meeting with this provider. Report Adderall and THC are the two that help his mind straight and as coping skills. Report Sundays always bad day to him related to trauma issues. He says being in here made him missing being outside which is not helpful to him. Do not want to retract 3 day notice. .Report anxiety and depression are better compared to yesterday. Went out to [facility]. Pleasant and cooperative. Need to learn coping skills. 01/30: Active on unit. social with peers. attending groups. Patient reports feeling better since admission; pt stated, I feel like I'm managing things a lot better . Patient reports he is glad he came to get help ; pt reports he plans on following up with his outpatient provider and being medication compliant. denies SI/HI/VH/AH. denies any side effects from medication. Valproic acid 51.4 on 01/30/25. 3 day up 01/31/25. Patient educated on: diagnosis and medication risk/benefits Reason for continued inpatient stay Substantial Risk for: stable for discharge Time Spent With Patient Time: Total time managing care of this patient today _20___ minutes.
[2025-01-30 19:40] VITALS: BP 136/85; PULSE 94; RESP 16; TEMP 36.6; O2SAT 100
[2025-01-31 08:00] VITALS: BP 127/97; PULSE 92; RESP 18; TEMP 36.3; O2SAT 98
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
== END 2025-01-31 09:30 | disposition home or self-care (01) | DRG 753 ==
LOC: HO.ED 19:45 → HO.PADLT16 01-26 11:01
PROVIDERS: Admitting Provider Registered Nurse; Emergency Provider Emergency Medicine Emergency Medical Services; Responsible Provider Registered Nurse; Visit Provider Psychiatry & Neurology Psychiatry
DX: F31.9 Bipolar disorder, unspecified (principal); R45.851 Suicidal ideations; K21.9 Gastro-esophageal reflux disease without esophagitis; M79.671 Pain in right foot; Z20.822 Contact with and (suspected) exposure to COVID-19; Z79.899 Other long term (current) drug therapy
CPT/HCPCS: 36415; 71046; 80053; 80061; 80076; 80164; 80307; 81003; 82140; 83036; 85025; 87502; 87635; 87637; 93005; 99285; S9485

== ENCOUNTER → 2025-01-25 19:43 | Outpatient (BNV) | payer BC, SELFPAY | PROVIDERS: Emergency Provider Emergency Medicine Emergency Medical Services; Visit Provider Radiology Diagnostic Radiology | DX: R05.9 Cough, unspecified (principal) | CPT/HCPCS: 71046 ==

== ENCOUNTER → 2025-01-26 07:42 | Outpatient (BNV) | payer BC, SELFPAY | PROVIDERS: Admitting Provider Registered Nurse; Emergency Provider Emergency Medicine Emergency Medical Services; Responsible Provider Registered Nurse; Visit Provider Internal Medicine Cardiovascular Disease | DX: Z13.6 Encounter for screening for cardiovascular disorders (principal) | CPT/HCPCS: 93010 ==

== ENCOUNTER → 2025-01-26 10:35 | Outpatient (BNV) | payer BC, SELFPAY | PROVIDERS: Admitting Provider Registered Nurse; Emergency Provider Emergency Medicine Emergency Medical Services; Responsible Provider Registered Nurse; Visit Provider Nurse Practitioner Family | DX: K21.9 Gastro-esophageal reflux disease without esophagitis (principal) | CPT/HCPCS: 99253 ==

== ENCOUNTER → 2025-01-26 10:35 | Outpatient (BNV) | payer BC, SELFPAY | PROVIDERS: Admitting Provider Registered Nurse; Emergency Provider Emergency Medicine Emergency Medical Services; Responsible Provider Registered Nurse; Visit Provider Nurse Practitioner Psychiatric/Mental Health | DX: F31.9 Bipolar disorder, unspecified (principal) | CPT/HCPCS: 90792; 99231; 99232; 99238 ==

== ENCOUNTER 2025-03-20 11:04 | Inpatient (IN) | payer MEDICAID, OTHER, SELFPAY ==
[2025-03-20 11:26] VITALS: BP 111/69; BP 131/81; PULSE 78; PULSE 81; RESP 18; O2SAT 99; BMI 25.1
--- NOTE | 2025-03-20 12:27 | ED_ITS ---
HPI - Psych General Chief Complaint: Psychiatric Symptoms Stated Complaint: PANIC ATTACK HEADACHE Time Seen by Provider: 03/20/25 11:21 Source: patient, RN notes reviewed and old records reviewed Mode of arrival: ambulatory Limitations: no limitations History of Present Illness ED Provider: LEONID Sibley HPI Narrative: 35-year-old male with medical history of bipolar disorder, MDD, ALISA, iron- deficiency anemia presents to the ED to increased depression, anxiety and panic attacks. Patient states he has had increased anxiety due to multiple life stressors including a break up from his partner, loss of housing, and feeling as if he has no support from his family. Patient states he was in extreme emotional distress earlier and when he gets this way he states that he ?does not know what to do? and ended up running to a [employer]. During this time patient started having thoughts of self-injurious behavior, but denies suicidal ideation. Patient endorses mild throbbing headache and increased anxiety. Patient denies any alcohol use and states he only smokes marijuana no other drugs. Patient denies chest pain, shortness of breath, visual changes, abominal pain, nausea, vomiting, urinary symptoms. Related Data Previous Rx's ?Medication ?Instructions ?Recorded hydroxyzine HCl 50 mg tablet 50 mg PO BID PRN mild anx iety 7 01/30/25 days #14 tabs Allergies Allergy/AdvReac Type Severity Reaction Status Date / Time No Known Allergies Allergy Verified 03/20/25 11:31 Review of Systems 2 Review of Systems: Yes all other systems are reviewed and are negative PMFSH Past Medical History Attestation statement: The following information was validated with the patient. Source: old records reviewed and nursing notes reviewed Medical History Upper respiratory infection, viral Depression with suicidal ideation GERD without esophagitis Surgical History H/O tooth extraction Family History Family History Mother FH: mental illness Father FH: mental illness Social History Social History Household Members: None Housing: Homeless Are you a primary neonatal critical care nurse to a significant other at home: No Do you presently have visiting nurse or other home services: No Alcohol intake: current Alcohol intake frequency: a few times a month Alcohol type: beer Patient Tobacco Use Status: Current someday Tobacco user Tobacco use type: Cigarette Cigarettes Per Day: 3 Smoked in Last 30 Days: Yes e-Cigarette/Vaping Use: Never Used Patient Interested in Nicotine Replacement: Yes Patient Given Instructions on How to Stop Smoking: Yes Date Education Initiated: 03/21/25 Second Hand Smoke Exposure: No Substance Use Type: Marijuana Currently Displaying Signs/Symptoms of Drug Intoxication Withdrawal: No Have you been hit, kicked, punched, or otherwise hurt by someone within the past year? If so, by whom?: No Do you feel safe in your current relationship?: No Current Relationship Is there a partner from a previous relationship who is making you feel unsafe now?: No Are you made to feel afraid or neglected: Yes (everyone around me makes me feel unsafe) Advance Directives: No Advance Directives Information Provided: No Do you have thoughts of harming others: None Do you have a plan to hurt others: No Plan Recently lost weight without trying: Yes How much weight loss: 2-13 pounds Eating poorly because of decreased appetite: Yes Nutrition screen score: 4 Nutrition Risks: No Nutritional Risk Poor oral hygiene: No service: No Current occupational status: employed 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 HEENT: ?NC, AT. MMM. EOMI, clear conjunctiva, oropharynx clear. NECK: ?Supple without lymphadenopathy.? No stiffness or restricted ROM. HEART:? Normal rate and regular rhythm, normal S1/S2, no m/r/g LUNGS:? CTAB, moving air well. No crackles or wheezes are heard. ABDOMEN: ?Soft, nontender, nondistended BACK: No CVAT, no obvious deformity. EXTREMITIES: ?Without cyanosis, clubbing or edema. NEUROLOGICAL: ?Grossly nonfocal. Alert and oriented, moving all 4 extremities. Observed to ambulate with normal gait. Skin: ?Warm and dry without any rash. Course Course Course Narrative: Time: 05:22 Date: 03/21/25 Provider: Colby Maldonado MD Patient in physician observation for psychiatric evaluation.? No acute events reported overnight. No current complaints. VS stable. The patient was evaluated by the CARE team evaluation and meets inpatient level of care criteria. Will continue to monitor. Time: 12:44 Date: 03/22/25 Provider: Colby Maldonado MD Physician observation ended at 12:44. The patient was accepted on the [facility] inpatient psychiatric unit for further treatment. Medications Administered Generic Name Dose Route Start Last Admin Trade Name Freq PRN Reason Stop Dose Admin Diphenhydramine HCl 50 mg 03/21/25 15:21 03/21/25 20:27 Diphenhydramine Hcl 25 Mg Capsule PO 50 mg Q6H PRN Administration Extrapyramidal Effects Hydroxyzine HCl 50 mg 03/21/25 14:37 03/21/25 23:03 Hydroxyzine Hcl 50 Mg Tablet PO 50 mg TID PRN Administration mild anxiety Ibuprofen 800 mg 03/21/25 14:41 03/21/25 14:52 Ibuprofen 800 Mg Tablet PO 800 mg Q8H PRN Administration Pain, Moderate(Pain Scale 4-6) Risperidone 0.5 mg 03/21/25 21:00 03/21/25 20:27 Risperidone 0.5 Mg Tablet PO 0.5 mg BEDTIME VINAY Administration Discontinued Medications Generic Name Dose Route Start Last Admin Trade Name Freq PRN Reason Stop Dose Admin Acetaminophen 975 mg 03/20/25 12:30 03/20/25 13:41 Acetaminophen 325 Mg Tablet PO 03/20/25 12:31 975 mg ONCE ONE Administration Diphenhydramine HCl 50 mg 03/20/25 22:08 03/20/25 22:12 Diphenhydramine Hcl 25 Mg Capsule PO 03/20/25 22:09 50 mg ONCE ONE Administration Hydroxyzine HCl 50 mg 03/21/25 09:46 03/21/25 10:02 Hydroxyzine Hcl 50 Mg Tablet PO 50 mg BID PRN Administration mild anxiety Lorazepam 1 mg 03/20/25 12:30 03/20/25 13:40 Lorazepam 1 Mg Tablet PO 03/20/25 12:31 1 mg ONCE ONE Administration Quetiapine Fumarate 50 mg 03/21/25 14:36 03/21/25 14:52 Quetiapine Fumarate 50 Mg Tablet PO 50 mg TID PRN Administration agitation and/or severe anxiety Medical Decision Making Medical Decision Making MDM Narrative: 5-year-old male with medical history of bipolar disorder, MDD, ALISA, iron- deficiency anemia presents to the ED to increased depression, anxiety and panic attacks endorsing recent life stressors breaking up with his partner, losing housing, and feeling as if he does not have support from his family. Patient with anxiety attack after disagreement on the phone with his family. Patient arrives to the ED with a mild throbbing headache, increased anxiety, and urges for self harm. Plan: Labs, EKG, SMITH, Care team consult -patient being medicated with 4 mg p.o. Ativan for increased anxiety Labs without leukocytosis/leukopenia, normocytic anemia with a stable hemoglobin of 13.4, hematocrit of 39.6, no electrolyte abnormalities. U tox positive for marijuana. Ethanol <10 Patient was evaluated by care team behavioral health specialist Abbie Mckeon. Patient will be section 12 due to passive suicidal ideation and requesting help as he does not feel safe to be discharged. Patient entering [facility] obs at 18:14 for adult bedsearch for IPLOC due to increased depression and suicidal ideation. Differential Diagnosis Differential Diagnoses: The differential diagnosis associated with the presentation includes Increased depression Increased anxiety Panic attacks Psychosis Admission/Observation Consideration of admission/observation: Escalation of care including admission/observation considered Consult Healthcare Provider Management of the patient was discussed with: Counter Professional (CARE team ) Lab Data [facility] Lab Attestation statement: I reviewed the patient's lab results. 03/20/25 12:42 03/20/25 12:42 Labs: Lab Results 03/20/25 03/21/25 Range/Units 12:42 06:40 WBC 10.1 (4.8-10.8) X10*3/uL RBC 4.58 L (4.60-5.80) X10*6/uL Hgb 13.4 L (14.0-18.0) g/dl Hct 39.6 L (42.0-52.0) % MCV 86.5 (80.0-98.0) fL MCH 29.3 (27.0-33.0) pg MCHC 33.8 (31.0-36.0) g/dl RDW 14.0 (11.0-16.0) % Plt Count 259 (160-400) X10*3/uL MPV 10.9 (9.4-12.4) fL Immature Gran % (Auto) 0.4 (0.0-0.4) % Neut % (Auto) 79.9 H (45-73) % Lymph % (Auto) 15.4 L (20-40) % [place] % (Auto) 3.5 (2-11) % Eos % (Auto) 0.1 (0-4) % Baso % (Auto) 0.7 (0-2) % Lymph # (Auto) 1.6 (1.2-4.9) X10*3/uL [place] # (Auto) 0.4 (0.1-1.2) X10*3/uL Eos # (Auto) 0.0 (0.0-0.4) X10*3/uL Baso # (Auto) 0.1 (0.0-0.2) X10*3/uL Abs Immat Gran (auto) 0.04 H (0.00-0.03) X10*3/uL Absolute Neuts (auto) 8.1 (2.0-8.3) x10*3/uL Absolute Nucleated RBC 0.000 (0.0-0.012) X10*3/uL Nucleated RBC % (auto) 0.0 (0.0-0.2) /100WBC Sodium 143 (135-145) mmol/L Potassium 3.9 (3.3-5.1) mmol/L Chloride 109 H (96-108) mmol/L Carbon Dioxide 28 (22-29) mmol/L Anion Gap 10 L (12-20) BUN 8 L (9-16) mg/dL Creatinine 0.83 (0.5-1.4) mg/dL Estim Creat Clear Calc 136.3 Estimated GFR > 60 Random Glucose 118 H (60-115) mg/dL Calcium 9.1 D (8.4-10.2) mg/dL Magnesium 2.4 (1.6-2.6) mg/dL Total Bilirubin 0.2 (0.0-1.0) mg/dL AST 19 (5-37) U/L ALT 25 (0-40) U/L Alkaline Phosphatase 50 (39-117) U/L Total Protein 6.7 (6.5-8.0) g/dL Albumin 4.7 (3.5-5.0) g/dL Urine Color Dark Yellow Urine Appearance Clear Urine pH 6.0 (5.0-9.0) Ur Specific [place] >= 1.030 H (1.005-1.025) Urine Protein Negative (Neg-Trace) mg/dL Urine Glucose (UA) Negative (Negative) mg/dL Urine Ketones Negative (Negative) mg/dL Urine Blood Negative (Negative) Urine Nitrite Negative (Negative) Ur Leukocyte Esterase Negative (Negative) Urine RBC 0-2 (0-2) /HPF Urine WBC 0-5 (0-5) /HPF Ur Squamous Epith Cells 0-2 (0-2) /HPF Urine Bacteria None Seen (None Seen) Hyaline Casts 3-5 (0-2) /LPF Urine Opiates Screen Not Detected (Not Detect) Ur Buprenorphine Scrn Not Detected (Not Detect) ng/mL Ur Oxycodone Screen Not Detected (Not Detect) ng/mL Urine Methadone Screen Not Detected (Not Detect) ng/mL Urine Fentanyl Screen Not Detected (Not Detect) Ur Barbiturates Screen Not Detected (Not Detect) Ur Phencyclidine Scrn Not Detected (Not Detect) Ur Amphetamines Screen Not Detected (Not Detect) U Benzodiazepines Scrn Not Detected (Not Detect) Urine Cocaine Screen Not Detected (Not Detect) U Marijuana (THC) Screen POSITIVE H (Not Detect) Ethyl Alcohol < 10 mg/dL External Record Review External record reviewed: Inpatient record, Office record and Outpatient record Chronic Conditions Patient?s care impacted by: Other (Bipolar disorder, MDD, GERD, iron-deficiency anemia) Social Determinants Patient?s care significantly limited by Social Determinants of Health including: Other Social Determinant of Health Discharge Plan Discharge Clinical Impression: Bipolar disorder, Suicidal ideation Patient Disposition: Admitted As Inpatient Interventions: Admission Worksheet (ED) Last Done: 03/21/25 12:44 Discharge Date/Time: 03/21/25 12:59
--- NOTE | 2025-03-20 12:30 | ECG_ITS ---
Test Reason : MED CLEAR Blood Pressure : */* mmHG Vent. Rate : 61 BPM Atrial Rate : 61 BPM P-R Int : 154 ms QRS Dur : 76 ms QT Int : 408 ms P-R-T Axes : 65 69 58 degrees QTcB Int : 410 ms Normal sinus rhythm with sinus arrhythmia Normal ECG When compared with ECG of 26-Jan-2025 10:05, No significant change was found Referred By: Deborah Sibley Electronically Signed By: SAMSON FINE MD
[2025-03-20 12:46] LABS: MANUAL DIFF FLAG NO
[2025-03-20 12:48] LABS: Hematocrit 39.6 % (42.0-52.0); Hemoglobin 13.4 g/dl (14.0-18.0); Imm Gran Abs Auto 0.04 X10*3/uL (0.00-0.03); Imm Gran Pct Auto 0.4 % (0.0-0.4); Lymphocytes Absolute Auto 1.6 X10*3/uL (1.2-4.9); Mean Corpuscular HGB Conc 33.8 g/dl (31.0-36.0); Mean Corpuscular Hemoglobin 29.3 pg (27.0-33.0); Mean Corpuscular Volume 86.5 fL (80.0-98.0); NRBC Abs Auto 0.000 X10*3/uL (0.0-0.012); NRBC Pct Auto 0.0 /100WBC (0.0-0.2); Platelet Count 259 X10*3/uL (160-400); Red Blood Count 4.58 X10*6/uL (4.60-5.80); White Blood Count 10.1 X10*3/uL (4.8-10.8)
[2025-03-20 13:02] LABS: Cannabinoid Screen Urine POSITIVE (Not Detect)
[2025-03-20 13:08] LABS: Alanine Aminotransferase 25 U/L (0-40); Albumin Level 4.7 g/dL (3.5-5.0); Alkaline Phosphatase 50 U/L (39-117); Anion Gap 10 (12-20); Aspartate Amino Transferase 19 U/L (5-37); Blood Urea Nitrogen 8 mg/dL (9-16); Calcium 9.1 mg/dL (8.4-10.2); Carbon Dioxide 28 mmol/L (22-29); Chloride 109 mmol/L (96-108); Creatinine Clr Calc Pharmacy 136.3; Estimated Glomerular Filt Rate > 60; Magnesium 2.4 mg/dL (1.6-2.6); Potassium 3.9 mmol/L (3.3-5.1); Sodium 143 mmol/L (135-145); Total Protein 6.7 g/dL (6.5-8.0)
[2025-03-20 21:53] VITALS: BP 104/75; PULSE 96; RESP 18; TEMP 36.8; O2SAT 99
--- NOTE | 2025-03-20 22:12 | PC.NURSE ---
Assumed care at 1845. Patient presents as calm and cooperative. Requested PRN for sleep. MD Barone made aware, given 50mg Benadryl, pending effectiveness. Endorses passive +SI, no plan/intent. Denies HI/AVH. Agreeable to alert staff if feeling unsafe. Unable to perform EKG or collect UA at this time, will attempt in the AM. 15 minute safety checks ongoing. Continue plan for IPLOC.
--- NOTE | 2025-03-21 06:33 | MHC.EDTECH ---
EKG not reviewed at this time by ED attending lori of an active code blue at this time. A second attempt to have the EKG signed will be made @ 7:00.
[2025-03-21 06:34] VITALS: BP 135/91; PULSE 86; RESP 16; TEMP 36.5; O2SAT 100
[2025-03-21 07:01] LABS: Appearance Urine Clear; Glucose Urine UA Negative (Negative); PH 6.0 (5.0-9.0); Specific Gravity - Urine >= 1.030 (1.005-1.025)
--- NOTE | 2025-03-21 09:10 | PC.NURSE ---
Assumed care, report received. Pt is given breakfast and goes back to bed. Safety is maintained.
--- NOTE | 2025-03-21 10:33 | PHA.MEDREC ---
Pharmacy Consult ? Medication Reconciliation Pharmacy has reviewed the medication reconciliation completed by nursing.
[2025-03-21 13:01] VITALS: BP 135/93; PULSE 107; RESP 18; TEMP 36.8; O2SAT 99
[2025-03-21 14:49] VITALS: BMI 23.8
--- NOTE | 2025-03-21 15:31 | PC.ADMIT ---
Valentin is a 35-year-old male admitted from [facility] to M3 03/21/25 1301 for treatment of MDD and Bipolar d/o. Tox screen positive for THC. Medical hx: GERD. Pt was BIBA secondary to endorsing SI, an increase in anxiety and depression, and not having providers or medications. Crisis eval reports a recent break up and loss of housing. Upon arrival to , pt was A&Ox4, pleasant and cooperative. He reports I've been having panic attacks back to back, and I came here because I wanted help and didn't want to be self destructive. Thought process linear with pressured speech, tangential at times. Mood is anxious with congruent affect. Pt denied sleep disturbances and auditory/visual disturbances. He reported a 10lb weight loss in 1 month due to decreased appetite r/t anxiety. Pt reports elevated anxiety r/t not having stable housing. Pt's goals for admission are to get tools and resources to find housing. I've also dreamed of being on Adderall since I was 14 years old. Pt reports using his ex-girlfriend's prescribed Adderall. He reports daily THC use and reports smoking 3 cigarettes a day but states they're usually just used ones I find on the ground. He is interested in a low dose nicotine patch. Pt reports feeling safe on the unit, denies SI/HI/AH/VH but will reach out to staff if thoughts occur. Pt placed on 15 minute safety checks.
[2025-03-21 20:00] VITALS: BP 132/79; PULSE 85; RESP 16; TEMP 36.3; O2SAT 99
--- NOTE | 2025-03-21 20:04 | HO.PSYADMNOT ---
HPI Date of Service: 03/21/25 Chief Complaint: SI Sources of Information: patient interviewed, chart reviewed and crisis/core team assessment reviewed HPI Subjective Notes: Conditional Voluntary Narrative: Mr. Arriola is a 34-year-old male with h/o bipolar disorder, cannabis use d/o, and stimulant use d/o who was BIBA to [facility] due to SI. Pt was last admitted to [facility] M3 from 01/26-01/31/25, which was his first inpatient psychiatric hospitalization. He was d/c'd from M3 on Depakote 1000 mg qhs and Seroquel 50 mg tid. Today, he reports that the Seroquel helped with anxiety but he d/c'd Depakote because he never wanted to take it in the first place. He reports that it was very scary when he abruptly stopped it and it triggered more and SI. He felt like he wasn't in control and put up a child gate in front of his stairs to keep him from leaving the house and doing something that he'd regret. He reports I just wanted Adderall and weed . He reports that he had SI to jump off a [employer], told himself don't do that and sold his truck for barely anything in order to avoid harming himself. He reports using all of the money from selling the truck on weed. He reports that he took a whole bottle (100 mg) of THC + microdose Lion's Aubrey mushrooms (not psychedelic mushrooms), which helped immensely in reducing SI. He reports that promotions team leader regularly drive by to check on him and recently asked him do you want Adderall? . He reports I was quite high and should have asked for the Adderall....but i wanted to see how long I could go without it . He reports using his ex-gf's Adderall total of 40 mg qd x 2 months and saw connections that made me feel like there was more . He felt more motivated and started playing video games about God. He states that everyone should have access to Adderall. He endorses poor sleep related to issues with [employer] and homelessness. It's unclear when he last used the Adderall. Tox screen/BAL neg. In regards to SI today, pt reports I feel great. I just want a place to stay. I do have suicidal ideation . He denies current plan/intent to harm self. Denies violent ideation, AH/VH Past Psychiatric History: 1 prior IPLOC at [facility] M3 from 01/26-01/31/25 Does not have outpatient psychiatric providers hx of 1 SA via OD on pills years ago and was not hospitalized. hx of SIB via cutting and punching wall. Medical Evaluation Reviewed: Yes [facility] Medical History Upper respiratory infection, viral Depression with suicidal ideation GERD without esophagitis Surgical History H/O tooth extraction Family History: Mother: Depression Father: Alcohol use disorder Social History: Lives alone. Single. No kids. Substance History: Adderall abuse from gf's rx. Smokes 1-2 cigarettes/wk. Smokes a whole lot of weed daily. Denies any other substance use Trauma History: Yes Diagnostics Vital Signs (24Hr): Vital Signs - 24 hr 03/20/25 21:53 03/21/25 06:34 03/21/25 13:01 Temperature 98.2 F 97.7 F 98.2 F Pulse Rate 96 86 107 H Respiratory Rate 18 16 18 Blood Pressure 104/75 135/91 H 135/93 H Pulse Oximetry 99 100 99 Oxygen Delivery Method Room Air Room Air Room Air BMI result Body Mass Index 23.8 Labs 03/20/25 12:42 03/20/25 12:42 Labs: Laboratory Results - last 48 hr 03/20/25 03/21/25 12:42 06:40 WBC 10.1 RBC 4.58 L Hgb 13.4 L Hct 39.6 L MCV 86.5 MCH 29.3 MCHC 33.8 RDW 14.0 Plt Count 259 MPV 10.9 Immature Gran % (Auto) 0.4 Neut % (Auto) 79.9 H Lymph % (Auto) 15.4 L [place] % (Auto) 3.5 Eos % (Auto) 0.1 Baso % (Auto) 0.7 Lymph # (Auto) 1.6 [place] # (Auto) 0.4 Eos # (Auto) 0.0 Baso # (Auto) 0.1 Abs Immat Gran (auto) 0.04 H Absolute Neuts (auto) 8.1 Absolute Nucleated RBC 0.000 Nucleated RBC % (auto) 0.0 Sodium 143 Potassium 3.9 Chloride 109 H Carbon Dioxide 28 Anion Gap 10 L BUN 8 L Creatinine 0.83 Estim Creat Clear Calc 136.3 Estimated GFR > 60 Random Glucose 118 H Calcium 9.1 D Magnesium 2.4 Total Bilirubin 0.2 AST 19 ALT 25 Alkaline Phosphatase 50 Total Protein 6.7 Albumin 4.7 Urine Color Dark Yellow Urine Appearance Clear Urine pH 6.0 Ur Specific [place] >= 1.030 H Urine Protein Negative Urine Glucose (UA) Negative Urine Ketones Negative Urine Blood Negative Urine Nitrite Negative Ur Leukocyte Esterase Negative Urine RBC 0-2 Urine WBC 0-5 Ur Squamous Epith Cells 0-2 Urine Bacteria None Seen Hyaline Casts 3-5 Urine Opiates Screen Not Detected Ur Buprenorphine Scrn Not Detected Ur Oxycodone Screen Not Detected Urine Methadone Screen Not Detected Urine Fentanyl Screen Not Detected Ur Barbiturates Screen Not Detected Ur Phencyclidine Scrn Not Detected Ur Amphetamines Screen Not Detected U Benzodiazepines Scrn Not Detected Urine Cocaine Screen Not Detected U Marijuana (THC) Screen POSITIVE H Ethyl Alcohol < 10 Meds/Allergies Allergies Allergies Allergy/AdvReac Type Severity Reaction Status Date / Time No Known Allergies Allergy Verified 03/20/25 11:31 Mental Status Exam Mental Status Exam Narrative: Appearance: Casually dressed. Grooming/hygiene wnl. Good eye contact Attitude:Cooperative Speech: Fluent and wnl in regard to volume, tone, prosody Motor activity: Calm and without any tics, tremors or dyskinesias. Steady gait Mood: I feel great Affect: Appropriate. Bordering on expansive. Not labile Thought process: Goal directed at times but perseverates on Adderall Thought content: I have suicidal ideation . Denies plan/intent to harm self. Denies violent ideation. likely delusions related to the police Perception: Denies AH/VH and does not appear to respond to internal stimuli Cognition grossly intact Insight: generally impaired but states that he's been manic Judgment: fair- willing to take psychotropic meds, expresses understanding that t/w will not rx Adderall Assessment & Plan Assessment & Plan (1) Bipolar disorder: Status: Acute Code(s): F31.9 - Bipolar disorder, unspecified Assessment and Plan: Bipolar I d/o vs substance induced mood d/o (2) Cannabis use disorder: Status: Acute Code(s): F12.90 - Cannabis use, unspecified, uncomplicated (3) Stimulant use disorder: Status: Acute Code(s): F15.90 - Other stimulant use, unspecified, uncomplicated Plan Mr. Arriola is a 34-year-old male with h/o bipolar disorder, cannabis use d/o, and stimulant use d/o who was BIBA to [facility] due to SI. Pt was last admitted to [facility] from 01/26-01/31/25, which was his first inpatient psychiatric hospitalization. He was d/c'd from on Depakote 1000 mg qhs and Seroquel 50 mg tid. On this admission- pt reports that he became 'manic' after he d/c'd the Depakote and never wanted to take that med. He endorses sx c/w mroe and psychosis in the setting of taking Adderall (not rx'd to him) qd x 2 months, daily MJ use and recently ingesting 100 mg of THC w/ [employer] Aubrey (non-psychedelic) mushrooms. It's unclear when he last used Adderall. Tox screen/BAL totally negative Plan: Admitted to [facility] for safety and stabilization Legal status- CV 15 min safety checks VS per unit standard Pt was agreeable w/ starting risperidone 0.5 mg qhs + .5 mg tid prn for agitation instead of the Seroquel for tx of more/psychosis. Will start lorazepam 1 mg tid prn for severe anxiety Patient educated on: diagnosis, medication risk/benefits, substance abuse and therapeutic strategies Informed Consent: understands Reason for continued inpatient stay Substantial Risk for: harm to self and med/psych decompensation Statement Statement: I have reviewed the history and physical and performed a pertinent examination on my patient. No changes have occurred unless specified. If the History and Physical was not performed prior to admission, the Hospitalist's service will be consulted for completing the admission physical. Time Spent With Patient Time: Total time managing care of this patient today ____ minutes.
[2025-03-22 08:00] VITALS: BP 120/75; PULSE 72; RESP 18; TEMP 36.8; O2SAT 98
[2025-03-22] MEDS: Flu Vacc TS2025-26(6mo up)/PF 0.5 ML SYRINGE IM (08:11)
[2025-03-22 08:29] LABS: Alanine Aminotransferase 26 U/L (0-40); Albumin Level 5.1 g/dL (3.5-5.0); Alkaline Phosphatase 53 U/L (39-117); Anion Gap 12 (12-20); Aspartate Amino Transferase 19 U/L (5-37); Blood Urea Nitrogen 13 mg/dL (9-16); Calcium 9.5 mg/dL (8.4-10.2); Carbon Dioxide 29 mmol/L (22-29); Chloride 107 mmol/L (96-108); Cholesterol 181 mg/dL (<200); Creatinine Clr Calc Pharmacy 117.8; Estimated Glomerular Filt Rate > 60; HDL Cholesterol 51 mg/dL (>40); Potassium 4.3 mmol/L (3.3-5.1); Sodium 144 mmol/L (135-145); Total Protein 7.4 g/dL (6.5-8.0); Triglycerides 89 mg/dL (<150)
--- NOTE | 2025-03-22 08:51 | PC.NURSE ---
Pt received flu vaccine 03/22/25810.
[2025-03-22] MEDS: Nicotine 7 MG PATCH.TD24 TRANSDERMA (10:49)
--- NOTE | 2025-03-22 12:13 | HO.PM.IMCN ---
History of Present Illness Data of Consult Service Date: 03/22/25 Primary Care Provider: Rayna King, [facility] HPI Reason for consult: Medical consult 35-year-old male with a past medical history of bipolar disorder, major depressive disorder, GERD, IVDA presents to the ED with increased depression, anxiety and panic attacks. Initial workup revealed no leukocytosis or leukopenia, normocytic anemia with a stable H&H of 9.6 and 13.4. No electrolyte imbalances. U tox positive for marijuana, no alcohol. On exam he has no medical concerns. Review of Systems Review of Systems: Denies any shortness of breath, chest pain, headaches, dysuria, abdominal pain or discomfort, nausea, vomiting or diarrhea. Denies fever or chills. [facility] Medical History Upper respiratory infection, viral Depression with suicidal ideation GERD without esophagitis Family History Mother FH: mental illness Father FH: mental illness Surgical History H/O tooth extraction Social History Household Members: None Housing: Homeless Are you a primary home health care coordinator to a significant other at home: No Do you presently have visiting nurse or other home services: No Alcohol intake: current Alcohol intake frequency: a few times a month Alcohol type: beer Patient Tobacco Use Status: Current someday Tobacco user Tobacco use type: Cigarette Cigarettes Per Day: 3 Smoked in Last 30 Days: Yes e-Cigarette/Vaping Use: Never Used Patient Interested in Nicotine Replacement: Yes Patient Given Instructions on How to Stop Smoking: Yes Date Education Initiated: 03/21/25 Second Hand Smoke Exposure: No Substance Use Type: Marijuana Currently Displaying Signs/Symptoms of Drug Intoxication Withdrawal: No Have you been hit, kicked, punched, or otherwise hurt by someone within the past year? If so, by whom?: No Do you feel safe in your current relationship?: No Current Relationship Is there a partner from a previous relationship who is making you feel unsafe now?: No Are you made to feel afraid or neglected: Yes (everyone around me makes me feel unsafe) Advance Directives: No Advance Directives Information Provided: No Do you have thoughts of harming others: None Do you have a plan to hurt others: No Plan Recently lost weight without trying: Yes How much weight loss: 2-13 pounds Eating poorly because of decreased appetite: Yes Nutrition screen score: 4 Nutrition Risks: No Nutritional Risk Poor oral hygiene: No service: No Current occupational status: employed 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 Current occupational exposures/hazards: No Sexual orientation: Straight/Heterosexual Cognitive needs: No Hearing needs: No Vision needs: Yes Meds Allergies Allergy/AdvReac Type Severity Reaction Status Date / Time No Known Allergies Allergy Verified 03/20/25 11:31 Active Medications: Current Medications Al Hydroxide/Mg Hydroxide (Magnesium Hydrox/Alum Hydrox 30 Ml Oral.Susp) 30 ml PO Q6H PRN PRN Reason: Heartburn/Nausea Diphenhydramine HCl (Diphenhydramine Hcl 25 Mg Capsule) 50 mg PO Q6H PRN PRN Reason: Extrapyramidal Effects Last Admin: 03/21/25 20:27 Dose: 50 mg Hydroxyzine HCl (Hydroxyzine Hcl 50 Mg Tablet) 50 mg PO TID PRN PRN Reason: mild anxiety Last Admin: 03/21/25 23:03 Dose: 50 mg Ibuprofen (Ibuprofen 800 Mg Tablet) 800 mg PO Q8H PRN PRN Reason: Pain, Moderate(Pain Scale 4-6) Last Admin: 03/21/25 14:52 Dose: 800 mg Lorazepam (Lorazepam 1 Mg Tablet) 1 mg PO TID PRN PRN Reason: severe anxiety Last Admin: 03/22/25 09:26 Dose: 1 mg Magnesium Hydroxide (Milk Of Magnesia 30 Ml Oral.Susp) 30 ml PO DAILY PRN PRN Reason: Constipation Nicotine (Nicotine 7 Mg Patch.Td24) 7 mg TRANSDERMA DAILY VINAY Last Admin: 03/22/25 10:49 Dose: 7 mg Risperidone (Risperidone 0.5 Mg Tablet) 0.5 mg PO BEDTIME VINAY Last Admin: 03/21/25 20:27 Dose: 0.5 mg Risperidone (Risperidone 0.5 Mg Tablet) 0.5 mg PO Q4H PRN PRN Reason: agitation and/or severe anxiet Last Admin: 03/22/25 08:17 Dose: 0.5 mg Trazodone HCl (Trazodone Hcl 50 Mg Tablet) 50 mg PO BEDTIME MRX1 PRN PRN Reason: Insomnia Physical Exam Vital Signs and Narrative: Vital Signs: Last Vital Signs Temp 98.2 F 03/22/25 08:00 Pulse 72 03/22/25 08:00 Resp 18 03/22/25 08:00 BP 120/75 03/22/25 08:00 Pulse Ox 98 03/22/25 08:00 O2 Del Method Room Air 03/22/25 08:00 BMI result Body Mass Index 23.8 Alert and oriented X3, calm and cooperative. Answers questions. Neuro: CN II-X11 intact, no deficits, visual acuity intact EYES: PERRLA, EOM intact ENT: Hearing intact, MMM Cardiac: S1 S2 RRR, No ectopy Pulmonary: lungs clear to auscultation, No increased WOB. Abdominal: BS active in all 4 quadrants, no guarding or tenderness MSK: Strength 5/5 upper and lower extremities : Deferred Extremities: No edema in lower extremities Psych: Mood stable, Quiet and cooperative. Skin: Warm and dry, Intact Results Labs 03/20/25 12:42 03/22/25 07:57 Labs: Laboratory Results - last 24 hr 03/22/25 07:57 Anion Gap 12 Estim Creat Clear Calc 117.8 Estimated GFR > 60 Random Glucose 107 Estimat Average Glucose 105 Hemoglobin A1c % 5.3 Calcium 9.5 Total Bilirubin 0.5 AST 19 ALT 26 Alkaline Phosphatase 53 Total Protein 7.4 Albumin 5.1 H Triglycerides 89 Cholesterol 181 LDL Cholesterol, Calc 113 H HDL Cholesterol 51 Assessment and Plan (1) Anxiety disorder: Status: Acute Plan 35-year-old with past medical history as listed below presented to the emergency department with increased depression anxiety and panic attacks. Now admitted for inpatient psychiatric stabilization Anxiety disorder/stimulant use disorder/bipolar disorder/MDD Treatment per psychiatric team History of iron deficiency anemia H&H stable Thank you for allowing me to participate in the care of this patient. Will follow with you, please notify medical provider with any changes in condition or concerns.
--- NOTE | 2025-03-22 15:17 | P.PNPSI_ITS ---
Subjective Subjective Date of Service: 03/22/25 Reason For Visit: SI Subjective Notes: Conditional Voluntary Interim History: Pt endorses anxiety, low frustration tolerance, feeling overstimulated w/ talking, overwhelmed, and SI without current plan or intent. He replays everything in his head, catastrophizes. He reports that multiple family members and other people who said they'd help him lied to him, chalo regarding offers to help w/ housing. He's worried about where he'll go from here. He has a list of family members to call but feels too scattered/irritable to do it today. He reports that he did sleep well last night. He thinks he might just be having a bad day today. He brought up Adderall multiple times again, feels like his thought process would be much clearer if he had it. Reports taking it since 14 y/o (never rx'd to him), up until 5-6 months ago. Expresses an understanding that I will not rx it for him at this point. He reports that he had his laptop and other belongings at [facility] and someone offered to store them for him and he went to the VIP suite. He doesn't recall what happened after that. He's unsure if his belongings are still there. Took prn risperidone .5 mg and lorazepam 1 mg this am. Medication Compliance: Yes Side effects from medications: No Review of Systems Acute medical concerns: No Mental Status Exam Mental Status Exam Narrative: Appearance: Fair grooming. Good eye contact Attitude:Cooperative Speech: Fluent and wnl in regard to volume, tone, prosody Motor activity: Calm and without any tics, tremors or dyskinesias. Mood: anxious Affect: appropriate, reactive Thought process: More goal directed Thought content: Less perseverative on Adderall. Overwhelmed. Endorses SI without plan. Denies violent ideation Perception: does not appear to respond to internal stimuli Insight: somewhat impaired Judgment: fair Diagnostics Vital Signs (24Hr): Vital Signs - 24 hr 03/21/25 20:00 03/22/25 08:00 Temperature 97.3 F 98.2 F Pulse Rate 85 72 Respiratory Rate 16 18 Blood Pressure 132/79 120/75 Pulse Oximetry 99 98 Oxygen Delivery Method Room Air Room Air BMI result Body Mass Index 23.8 Labs 03/20/25 12:42 03/22/25 07:57 Labs: Laboratory Results - last 48 hr 03/21/25 03/22/25 06:40 07:57 Sodium 144 Potassium 4.3 Chloride 107 Carbon Dioxide 29 Anion Gap 12 BUN 13 Creatinine 0.96 Estim Creat Clear Calc 117.8 Estimated GFR > 60 Random Glucose 107 Estimat Average Glucose 105 Hemoglobin A1c % 5.3 Calcium 9.5 Total Bilirubin 0.5 AST 19 ALT 26 Alkaline Phosphatase 53 Total Protein 7.4 Albumin 5.1 H Triglycerides 89 Cholesterol 181 LDL Cholesterol, Calc 113 H HDL Cholesterol 51 Urine Color Dark Yellow Urine Appearance Clear Urine pH 6.0 Ur Specific [place] >= 1.030 H Urine Protein Negative Urine Glucose (UA) Negative Urine Ketones Negative Urine Blood Negative Urine Nitrite Negative Ur Leukocyte Esterase Negative Urine RBC 0-2 Urine WBC 0-5 Ur Squamous Epith Cells 0-2 Urine Bacteria None Seen Hyaline Casts 3-5 Medications Medications Current Medications Al Hydroxide/Mg Hydroxide (Magnesium Hydrox/Alum Hydrox 30 Ml Oral.Susp) 30 ml PO Q6H PRN PRN Reason: Heartburn/Nausea Diphenhydramine HCl (Diphenhydramine Hcl 25 Mg Capsule) 50 mg PO Q6H PRN PRN Reason: Extrapyramidal Effects Last Admin: 03/21/25 20:27 Dose: 50 mg Hydroxyzine HCl (Hydroxyzine Hcl 50 Mg Tablet) 50 mg PO TID PRN PRN Reason: mild anxiety Last Admin: 03/21/25 23:03 Dose: 50 mg Ibuprofen (Ibuprofen 800 Mg Tablet) 800 mg PO Q8H PRN PRN Reason: Pain, Moderate(Pain Scale 4-6) Last Admin: 03/21/25 14:52 Dose: 800 mg Lorazepam (Lorazepam 1 Mg Tablet) 1 mg PO TID PRN PRN Reason: severe anxiety Last Admin: 03/22/25 09:26 Dose: 1 mg Magnesium Hydroxide (Milk Of Magnesia 30 Ml Oral.Susp) 30 ml PO DAILY PRN PRN Reason: Constipation Nicotine (Nicotine 7 Mg Patch.Td24) 7 mg TRANSDERMA DAILY VINAY Last Admin: 03/22/25 10:49 Dose: 7 mg Risperidone (Risperidone 0.5 Mg Tablet) 0.5 mg PO BEDTIME VINAY Last Admin: 03/21/25 20:27 Dose: 0.5 mg Risperidone (Risperidone 0.5 Mg Tablet) 0.5 mg PO Q4H PRN PRN Reason: agitation and/or severe anxiet Last Admin: 03/22/25 08:17 Dose: 0.5 mg Trazodone HCl (Trazodone Hcl 50 Mg Tablet) 50 mg PO BEDTIME MRX1 PRN PRN Reason: Insomnia Allergies Allergies Allergy/AdvReac Type Severity Reaction Status Date / Time No Known Allergies Allergy Verified 03/20/25 11:31 Assessment & Plan Assessment & Plan (1) Bipolar disorder: Status: Acute Code(s): F31.9 - Bipolar disorder, unspecified Assessment and Plan: Bipolar I d/o vs substance induced mood d/o (2) Cannabis use disorder: Status: Acute Code(s): F12.90 - Cannabis use, unspecified, uncomplicated (3) Stimulant use disorder: Status: Acute Code(s): F15.90 - Other stimulant use, unspecified, uncomplicated (4) Anxiety disorder: Status: Acute Code(s): F41.9 - Anxiety disorder, unspecified Plan Mr. Arriola is a 34-year-old male with h/o bipolar disorder, cannabis use d/o, and stimulant use d/o who was BIBA to [facility] due to SI. Pt was last admitted to [facility] M3 from 01/26-01/31/25, which was his first inpatient psychiatric hospitalization. He was d/c'd from M3 on Depakote 1000 mg qhs and Seroquel 50 mg tid. On this admission- pt reports that he became 'manic' after he d/c'd the Depakote and never wanted to take that med. He endorses sx c/w more and psychosis in the setting of taking Adderall (not rx'd to him) qd x 2 months, daily MJ use and recently ingesting 100 mg of THC w/ [employer] (non- psychedelic) mushrooms. It's unclear when he last used Adderall. Tox screen/BAL totally negative Plan: Admitted to [facility] M3 for safety and stabilization Legal status- CV 15 min safety checks VS per unit standard Pt was agreeable w/ starting risperidone 0.5 mg qhs + .5 mg tid prn for agitation instead of the Seroquel for tx of more/psychosis. Will start lorazepam 1 mg tid prn for severe anxiety 03/22: Sleep has improved. Pt endorses SI w/o plan, intrusive catastrophic worries, feeling overwhelmed, low frustration tolerance and feeling overstimulated. Will screen for OCD tomorrow. Pt is agreeable w/ plan to Titrate risperidone to 1 mg qhs for more/anxiety. Patient educated on: medication risk/benefits and therapeutic strategies Informed Consent: understands Reason for continued inpatient stay Substantial Risk for: med/psych decompensation Time Spent With Patient Time: Total time managing care of this patient today ____ minutes.
--- NOTE | 2025-03-22 16:54 | MHC.CLN ---
CONSULT REPORTED 10# WEIGHT LOSS X ONE MONTH. REVIEW OF WEIGHT HX SHOWS WEIGHT ON 03/21=79.6 KG AND WEIGHT ON 03/20=83.9 KG. USUAL BODY WEIGHT X ONE YEAR 82-84 KG. NO ADDITIONAL NUTRITION INTERVENTIONS AT THIS TIME. PLEASE CONSULT RD IF POOR PO INTAKE DURING ADM.
[2025-03-22 19:30] VITALS: BP 126/82; PULSE 85; RESP 16; TEMP 36.9; O2SAT 98
[2025-03-23 07:00] VITALS: BMI 23.8
[2025-03-23 07:45] VITALS: BP 108/76; PULSE 70; RESP 20; TEMP 36.8; O2SAT 97
[2025-03-23] MEDS: Nicotine 7 MG PATCH.TD24 TRANSDERMA (08:27)
--- NOTE | 2025-03-23 17:25 | P.PNPSI_ITS ---
Subjective Subjective Date of Service: 03/23/25 Reason For Visit: SI Subjective Notes: Conditional Voluntary Interim History: Chart reviewed. case discussed w/ team Pt reports feeling a lot better than yesterday, motivated, less anxious, in my head but in a good way ... better than I've felt in a while . SI is 'not so bad today'. Slept well. Took a shower for the first time in a hospital today- states that is huge for him. Discussed long h/o intrusive thoughts. Some are related to helping people, which can be stressful since he feels pressure to help everybody. Feels panicky when he can't control everything but understands it's impossible to control everything. He reminds himself you're safe . He was dx'd with OCD at age 10. He asks if it's possible to have OCD, autism and ADHD and t/w told him that it is. He expressed relief in hearing that. T/W printed out the YBOCS, adult ADHD self- report scale, MDQ and PLC5 for him to complete when he has time. He was eager to do the assessments and we'll f/u tomorrow on the results. Slept 8 hrs per nursing report. Hydroxyzine helps with anxiety during the day Risperidone seems to help w/ the intrusive thoughts/anxiety overall Denies med SE Medication Compliance: Yes Side effects from medications: No Attending Groups: No Review of Systems Acute medical concerns: No Mental Status Exam Mental Status Exam Narrative: Appearance: Casually dressed. Grooming/hygiene wnl. Good eye contact Attitude:Cooperative Speech: Fluent and wnl in regard to volume, tone, prosody Motor activity: Calm and without any tics, tremors or dyskinesias. Steady gait Mood: as noted above Affect: appropriate, reactive, generally bright Thought process: goal directed and without evidence of formal thought disorder Thought content: SI has decreased, no current plan/intent to harm. No violent ideation reported. Intrusive thoughts are less bothersome. Briefly brought up Adderall, didn't perseverate on it Perception: Denies AH/VH and does not appear to respond to internal stimuli Alert/oriented in all spheres Cognition grossly intact Insight: fair Judgment: intact Diagnostics Vital Signs (24Hr): Vital Signs - 24 hr 03/22/25 19:30 03/23/25 07:45 Temperature 98.4 F 98.2 F Pulse Rate 85 70 Respiratory Rate 16 20 Blood Pressure 126/82 108/76 Pulse Oximetry 98 97 Oxygen Delivery Method Room Air Room Air BMI result Body Mass Index 23.8 Labs 03/20/25 12:42 03/22/25 07:57 Labs: Laboratory Results - last 48 hr 03/22/25 07:57 Sodium 144 Potassium 4.3 Chloride 107 Carbon Dioxide 29 Anion Gap 12 BUN 13 Creatinine 0.96 Estim Creat Clear Calc 117.8 Estimated GFR > 60 Random Glucose 107 Estimat Average Glucose 105 Hemoglobin A1c % 5.3 Calcium 9.5 Total Bilirubin 0.5 AST 19 ALT 26 Alkaline Phosphatase 53 Total Protein 7.4 Albumin 5.1 H Triglycerides 89 Cholesterol 181 LDL Cholesterol, Calc 113 H HDL Cholesterol 51 Medications Medications Current Medications Al Hydroxide/Mg Hydroxide (Magnesium Hydrox/Alum Hydrox 30 Ml Oral.Susp) 30 ml PO Q6H PRN PRN Reason: Heartburn/Nausea Diphenhydramine HCl (Diphenhydramine Hcl 25 Mg Capsule) 50 mg PO Q6H PRN PRN Reason: Extrapyramidal Effects Last Admin: 03/21/25 20:27 Dose: 50 mg Hydroxyzine HCl (Hydroxyzine Hcl 50 Mg Tablet) 50 mg PO TID PRN PRN Reason: mild anxiety Last Admin: 03/23/25 15:35 Dose: 50 mg Ibuprofen (Ibuprofen 800 Mg Tablet) 800 mg PO Q8H PRN PRN Reason: Pain, Moderate(Pain Scale 4-6) Last Admin: 03/23/25 15:36 Dose: 800 mg Lorazepam (Lorazepam 1 Mg Tablet) 1 mg PO TID PRN PRN Reason: severe anxiety Last Admin: 03/22/25 21:04 Dose: 1 mg Magnesium Hydroxide (Milk Of Magnesia 30 Ml Oral.Susp) 30 ml PO DAILY PRN PRN Reason: Constipation Nicotine (Nicotine 7 Mg Patch.Td24) 7 mg TRANSDERMA DAILY VINAY Last Admin: 03/23/25 08:27 Dose: 7 mg Risperidone (Risperidone 0.5 Mg Tablet) 0.5 mg PO Q4H PRN PRN Reason: agitation and/or severe anxiet Last Admin: 03/22/25 08:17 Dose: 0.5 mg Risperidone (Risperidone 1 Mg Tablet) 1 mg PO BEDTIME VINAY Last Admin: 03/22/25 21:04 Dose: 1 mg Trazodone HCl (Trazodone Hcl 50 Mg Tablet) 50 mg PO BEDTIME MRX1 PRN PRN Reason: Insomnia Allergies Allergies Allergy/AdvReac Type Severity Reaction Status Date / Time No Known Allergies Allergy Verified 03/20/25 11:31 Assessment & Plan Assessment & Plan (1) Bipolar disorder: Status: Acute Code(s): F31.9 - Bipolar disorder, unspecified Assessment and Plan: Bipolar I d/o vs substance induced mood d/o (2) OCD (obsessive compulsive disorder): Status: Acute Code(s): F42.9 - Obsessive-compulsive disorder, unspecified (3) Anxiety disorder: Status: Acute Code(s): F41.9 - Anxiety disorder, unspecified (4) Cannabis use disorder: Status: Acute Code(s): F12.90 - Cannabis use, unspecified, uncomplicated (5) Stimulant use disorder: Status: Acute Code(s): F15.90 - Other stimulant use, unspecified, uncomplicated Plan Mr. Arriola is a 34-year-old male with h/o bipolar disorder, cannabis use d/o, and stimulant use d/o who was BIBA to [facility] due to SI. Pt was last admitted to [facility] M3 from 01/26-01/31/25, which was his first inpatient psychiatric hospitalization. He was d/c'd from M3 on Depakote 1000 mg qhs and Seroquel 50 mg tid. On this admission- pt reports that he became 'manic' after he d/c'd the Depakote and never wanted to take that med. He endorses sx c/w more and psychosis in the setting of taking Adderall (not rx'd to him) qd x 2 months, daily MJ use and recently ingesting 100 mg of THC w/ [employer] (non- psychedelic) mushrooms. It's unclear when he last used Adderall. Tox screen/BAL totally negative Plan: Admitted to [facility] M[facility] for safety and stabilization Legal status- CV 15 min safety checks VS per unit standard Pt was agreeable w/ starting risperidone 0.5 mg qhs + .5 mg tid prn for agitation instead of the Seroquel for tx of more/psychosis. Will start lorazepam 1 mg tid prn for severe anxiety 03/22: Sleep has improved. Pt endorses SI w/o plan, intrusive catastrophic worries, feeling overwhelmed, low frustration tolerance and feeling overstimulated. Will screen for OCD tomorrow. Pt is agreeable w/ plan to Titrate risperidone to 1 mg qhs for more/anxiety. 03/23: Pt notes significant improvement in his mood today. Tolerating the risperidone increase well. PRN Vistaril helps w/ anxiety. Provided pt w/ printed assessments including PCL5, YBOCS, Adult ADHD Self-report scale and MDQ to further screen for PTSD, OCD, ADHD and more. Will review tomorrow. Patient educated on: diagnosis, medication risk/benefits and therapeutic strategies Informed Consent: understands Reason for continued inpatient stay Substantial Risk for: med/psych decompensation Time Spent With Patient Time: Total time managing care of this patient today ____ minutes.
[2025-03-23 19:30] VITALS: BP 139/89; PULSE 92; RESP 16; TEMP 36.3; O2SAT 99
[2025-03-24 08:00] VITALS: RESP 18; TEMP 36.7
[2025-03-24] MEDS: Nicotine 7 MG PATCH.TD24 TRANSDERMA (09:01)
--- NOTE | 2025-03-24 09:31 | P.PNPSI_ITS ---
Subjective Subjective Date of Service: 03/24/25 Reason For Visit: SI Subjective Notes: Conditional Voluntary Interim History: Chart reviewed. Case discussed w/ team Pt reports that he had poor sleep last night due to anxiety related to the YBOCS OCD assessment that t/w gave him yesterday. He saw that it was written in 1988 on one of the pages and figured it must be outdated. He also has a hard time focusing on reading and got overwhelmed reading the instructions. He reports that he's had a lot of obsessions/compulsions but they change depending on the day and level of stress He feels like these sx are more related to ASD. He answered 15/20 questions on the PLC-5 then mary an 'X' over the entire page. He feels like his positive answers are more related to autism, ADHD. He did complete the entire Adult ADHD Self-Report scale (see results below) and Mood d/o questionnaire. He answered yes to every question on the MDQ. He had an IEP in school. He reports that he failed a lot of classes due to his poor handwriting and got accommodations to use a keyboard. He reports that he's an auditory learner. He hates reading. He denies ever having a formal dx of autism but feels strongly that he has it. He has difficulty w/ understanding social norms, he's blunt and doesn't understand why people don't say what they really mean. He trained himself to learn body language and to 'mask'. He gets easily overstimulated and rocks and picks at his skin to self sooth. Adult ADHD Self-Report Scale Symptom Checklist: 1. How often do you have trouble wrapping up the final details of a project once the challenging parts have been done? Very often- has to pull people in to help with administrative tasks. Also wants things to be perfect 2. How often do you have difficult getting things in order when you have to do a task that requires organization? Very often 3. How often do you have problems remembering appointments or obligations? S ometimes- he set up multiple calendars,which helps 4. When you have a task that requires a lot of thought, how often do you avoid or delay getting started? Often- particularly with paperwork, administrative tasks, reading. Doesn't mind doing challenging tasks that he enjoys 5. How often do you fidget or squirm with your hands or feet when you have to sit down for a long time? Very often 6. How often do you feel overly active and compelled to do things, like you were driven by a motor? Sometimes (usually due to intrusive thoughts) 7. How often do you make careless mistakes when you have to work on a boring or difficult project? Sometimes (if he's doing paid work), otherwise very often 8. How often do you have difficulty keeping your attention when you are doing boring or repetitive work? Very often 9. How often do you have difficulty concentrating on what people say to you, even when they are speaking to you directly? Sometimes 10. How often do you misplace or have difficulty finding things at home or at work? Often 11. How often are you distracted by activity or noise around you? Very often 12. How often do you leave your seat in meetings or other situations in which you are expected to remain seated? Often 13. How often do you feel restless or fidgety? Very often 14. How often do you have difficulty unwinding or relaxing when you have time to yourself? Often 15. How often do you find yourself talking too much when you are in social situations? Very often 16. When you're in a conversation, how often do you find yourself finishing the sentences of the people you are talking to, before they can finish themselves? Very often 17. How often do you have difficulty waiting your turn in situations when turn taking is required? Very often 18. How often do you interrupt others when they are busy? Very often Medication Compliance: Yes Side effects from medications: No Mental Status Exam Mental Status Exam Narrative: Appearance: Appears tired. Grooming fair. Good eye contact Attitude:Cooperative Speech: Fluent and wnl in regard to volume, tone, prosody Motor activity: Calm and without any tics, tremors or dyskinesias. Steady gait Mood: Anxious, tired Affect: appropriate Thought process: Circumstantial, generally logical Thought content: Denies SI/violent ideation. Perception: does not appear to respond to internal stimuli Alert/oriented in all spheres Cognition grossly intact Insight: fair Judgment: intact Diagnostics Vital Signs (24Hr): Vital Signs - 24 hr 03/23/25 19:30 03/24/25 08:00 Temperature 97.3 F 98.1 F Pulse Rate 92 Respiratory Rate 16 18 Blood Pressure 139/89 Pulse Oximetry 99 Oxygen Delivery Method Room Air BMI result Body Mass Index 23.8 Labs 03/20/25 12:42 03/22/25 07:57 Medications Medications Current Medications Al Hydroxide/Mg Hydroxide (Magnesium Hydrox/Alum Hydrox 30 Ml Oral.Susp) 30 ml PO Q6H PRN PRN Reason: Heartburn/Nausea Diphenhydramine HCl (Diphenhydramine Hcl 25 Mg Capsule) 50 mg PO Q6H PRN PRN Reason: Extrapyramidal Effects Last Admin: 03/21/25 20:27 Dose: 50 mg Hydroxyzine HCl (Hydroxyzine Hcl 50 Mg Tablet) 50 mg PO TID PRN PRN Reason: mild anxiety Last Admin: 03/24/25 09:04 Dose: 50 mg Ibuprofen (Ibuprofen 800 Mg Tablet) 800 mg PO Q8H PRN PRN Reason: Pain, Moderate(Pain Scale 4-6) Last Admin: 03/23/25 15:36 Dose: 800 mg Lorazepam (Lorazepam 1 Mg Tablet) 1 mg PO TID PRN PRN Reason: severe anxiety Last Admin: 03/23/25 22:50 Dose: 1 mg Magnesium Hydroxide (Milk Of Magnesia 30 Ml Oral.Susp) 30 ml PO DAILY PRN PRN Reason: Constipation Nicotine (Nicotine 7 Mg Patch.Td24) 7 mg TRANSDERMA DAILY [facility] Last Admin: 03/24/25 09:01 Dose: 7 mg Risperidone (Risperidone 0.5 Mg Tablet) 0.5 mg PO Q4H PRN PRN Reason: agitation and/or severe anxiet Last Admin: 03/23/25 19:21 Dose: 0.5 mg Risperidone (Risperidone 1 Mg Tablet) 1 mg PO BEDTIME VINAY Last Admin: 03/23/25 20:44 Dose: 1 mg Trazodone HCl (Trazodone Hcl 50 Mg Tablet) 50 mg PO BEDTIME MRX1 PRN PRN Reason: Insomnia Allergies Allergies Allergy/AdvReac Type Severity Reaction Status Date / Time No Known Allergies Allergy Verified 03/20/25 11:31 Assessment & Plan Assessment & Plan (1) Bipolar disorder: Status: Acute Code(s): F31.9 - Bipolar disorder, unspecified Assessment and Plan: Bipolar I d/o vs substance induced mood d/o (2) Anxiety disorder: Status: Acute Code(s): F41.9 - Anxiety disorder, unspecified (3) Attention deficit hyperactivity disorder, combined type: Status: Acute Code(s): F90.2 - Attention-deficit hyperactivity disorder, combined type (4) Cannabis use disorder: Status: Acute Code(s): F12.90 - Cannabis use, unspecified, uncomplicated (5) Stimulant use disorder: Status: Acute Code(s): F15.90 - Other stimulant use, unspecified, uncomplicated Plan Mr. Arriola is a 34-year-old male with h/o bipolar disorder, cannabis use d/o, and stimulant use d/o who was BIBA to [facility] due to SI. Pt was last admitted to [facility] from 01/26-01/31/25, which was his first inpatient psychiatric hospitalization. He was d/c'd from on Depakote 1000 mg qhs and Seroquel 50 mg tid. On this admission- pt reports that he became 'manic' after he d/c'd the Depakote and never wanted to take that med. He endorses sx c/w more and psychosis in the setting of taking Adderall (not rx'd to him) qd x 2 months, daily MJ use and recently ingesting 100 mg of THC w/ [employer] (non- psychedelic) mushrooms. It's unclear when he last used Adderall. Tox screen/BAL totally negative Plan: Admitted to [facility] M3 for safety and stabilization Legal status- CV 15 min safety checks VS per unit standard Pt was agreeable w/ starting risperidone 0.5 mg qhs + .5 mg tid prn for agitation instead of the Seroquel for tx of more/psychosis. Will start lorazepam 1 mg tid prn for severe anxiety 03/22: Sleep has improved. Pt endorses SI w/o plan, intrusive catastrophic worries, feeling overwhelmed, low frustration tolerance and feeling overstimulated. Will screen for OCD tomorrow. Pt is agreeable w/ plan to Titrate risperidone to 1 mg qhs for more/anxiety. 03/23: Pt notes significant improvement in his mood today. Tolerating the risperidone increase well. PRN Vistaril helps w/ anxiety. Provided pt w/ printed assessments including PCL5, YBOCS, Adult ADHD Self-report scale and MDQ to further screen for PTSD, OCD, ADHD and more. Will review tomorrow. 03/24: Pt completed the ADHD self-report scale and his responses and additional hx provided are c/w dx of ADHD, combined type. He has consistently reported that he hasn't taken Adderall in the past 2 months (so I don't think this is stimulant induced more) and that he has never gotten an actual Adderall rx of his own but took therapeutic doses in the past that he got from his gf's rx. T/W feels that it's appropriate to start pt on low dose Adderall today so that he can be monitored for any +/- response in a controlled setting. Pt expresses an understanding that stimulants can trigger/exacerbate more and the Adderall would be d/c'd if that occurs. Pt's history/presentation also seems to be consistent w/ autism spectrum disorder and he has good insight into this. He feels that the obsessions/compulsive behavior are more related to ASD than OCD. He completed most of the PCL-5 but stated that the positive responses were not related to a stressful event and he denies that the sx are bothersome. -T/W advised pt to reduce and ideally avoid cannabis since it can also contribute to his mood and cognitive sx. He agrees to at least reduce his use P- Start Adderall IR 10 mg today (since it is later in the day). Will order Adderall XR 10 mg for tomorrow am. Otherwise continue current tx plan. Patient educated on: diagnosis, medication risk/benefits, substance abuse and therapeutic strategies Informed Consent: understands Reason for continued inpatient stay Substantial Risk for: med/psych decompensation Time Spent With Patient Time: Total time managing care of this patient today ____ minutes.
[2025-03-24] MEDS: Amphetamine Mixed Salts 10 MG TABLET PO (11:50)
[2025-03-24 20:00] VITALS: BP 139/80; PULSE 113; RESP 16; TEMP 36.2; O2SAT 96
[2025-03-25 08:00] VITALS: BP 98/66; PULSE 82; RESP 14; TEMP 36.7; O2SAT 99
[2025-03-25] MEDS: Nicotine 7 MG PATCH.TD24 TRANSDERMA (08:25)
[2025-03-25] MEDS: Dextroamphetamine/Amphetamine XR 10 MG CAP.ER.24H PO (08:25)
--- NOTE | 2025-03-25 15:34 | P.PNPSI_ITS ---
Subjective Subjective Date of Service: 03/25/25 Reason For Visit: SI Subjective Notes: Conditional Voluntary Healthcare Proxy: No Guardianship: No Medical Problems Affecting Mental Status: No Interim History: seen in OT room. Calm, communicative. Doing better since Adderall started yesterday. Got a single IR dose yesterday and is now on XR. States that it is helping him with all of his mental health issues as it keeps his brain healthy, sane. He hopes to increase the dosage. He denies SI/HI/AVH. Medication Compliance: Yes Side effects from medications: No Attending Groups: Yes Review of Systems Acute medical concerns: No Medical Review of Systems: changed Review of Systems Review of Systems Yes all other systems are reviewed and are negative Mental Status Exam Mental Status Exam Narrative: Patient Appearance: Well Groomed, adequate hygiene Patient Behavior: Appropriate Level of Consciousness: Awake, alert Patient Orientation: Person, Place and Time, situational context Memory: grossly intact to recent events Psychomotor: no agitation or slowing Speech: talkative, non-pressured Mood: ?content? Affect: appropriate range Thought Process: Goal Oriented Thought Content: denies SI/HI; focused on treatment questions Hallucinations: Denies; does not appear preoccupied Delusions: None evinced Insight: mild impairment Judgment: mild impairment Impulsivity: low Diagnostics Vital Signs (24Hr): Vital Signs - 24 hr 03/24/25 20:00 03/25/25 08:00 Temperature 97.2 F 98.1 F Pulse Rate 113 H 82 Respiratory Rate 16 14 Blood Pressure 139/80 98/66 Pulse Oximetry 96 99 Oxygen Delivery Method Room Air Room Air BMI result Body Mass Index 23.8 Labs 03/20/25 12:42 03/22/25 07:57 Medications Medications Current Medications Al Hydroxide/Mg Hydroxide (Magnesium Hydrox/Alum Hydrox 30 Ml Oral.Susp) 30 ml PO Q6H PRN PRN Reason: Heartburn/Nausea Amphetamine/Dextroamphetamine (Dextroamphetamine/Amphetamine Xr 10 Mg Cap.Er.24h) 10 mg PO DAILY VINAY Last Admin: 03/25/25 08:25 Dose: 10 mg Diphenhydramine HCl (Diphenhydramine Hcl 25 Mg Capsule) 50 mg PO Q6H PRN PRN Reason: Extrapyramidal Effects Last Admin: 03/24/25 22:04 Dose: 50 mg Hydroxyzine HCl (Hydroxyzine Hcl 50 Mg Tablet) 50 mg PO TID PRN PRN Reason: mild anxiety Last Admin: 03/24/25 22:04 Dose: 50 mg Ibuprofen (Ibuprofen 800 Mg Tablet) 800 mg PO Q8H PRN PRN Reason: Pain, Moderate(Pain Scale 4-6) Last Admin: 03/24/25 18:46 Dose: 800 mg Lorazepam (Lorazepam 1 Mg Tablet) 1 mg PO TID PRN PRN Reason: severe anxiety Last Admin: 03/23/25 22:50 Dose: 1 mg Magnesium Hydroxide (Milk Of Magnesia 30 Ml Oral.Susp) 30 ml PO DAILY PRN PRN Reason: Constipation Nicotine (Nicotine 7 Mg Patch.Td24) 7 mg TRANSDERMA DAILY VINAY Last Admin: 03/25/25 08:25 Dose: 7 mg Nicotine Polacrilex (Nicotine Polacrilex 2 Mg Gum) 2 mg BUCCAL Q2H PRN PRN Reason: Nicotine Cravings Last Admin: 03/25/25 13:49 Dose: 2 mg Risperidone (Risperidone 0.5 Mg Tablet) 0.5 mg PO Q4H PRN PRN Reason: agitation and/or severe anxiet Last Admin: 03/24/25 17:40 Dose: 0.5 mg Risperidone (Risperidone 1 Mg Tablet) 1 mg PO BEDTIME VINAY Last Admin: 03/24/25 22:04 Dose: 1 mg Trazodone HCl (Trazodone Hcl 50 Mg Tablet) 50 mg PO BEDTIME MRX1 PRN PRN Reason: Insomnia Last Admin: 03/25/25 00:25 Dose: 50 mg Allergies Allergies Allergy/AdvReac Type Severity Reaction Status Date / Time No Known Allergies Allergy Verified 03/20/25 11:31 Assessment & Plan Assessment & Plan (1) Bipolar disorder: Status: Acute Code(s): F31.9 - Bipolar disorder, unspecified Assessment and Plan: Bipolar I d/o vs substance induced mood d/o (2) Anxiety disorder: Status: Acute Code(s): F41.9 - Anxiety disorder, unspecified (3) Attention deficit hyperactivity disorder, combined type: Status: Acute Code(s): F90.2 - Attention-deficit hyperactivity disorder, combined type (4) Cannabis use disorder: Status: Acute Code(s): F12.90 - Cannabis use, unspecified, uncomplicated (5) Stimulant use disorder: Status: Acute Code(s): F15.90 - Other stimulant use, unspecified, uncomplicated Plan Mr. Arriola is a 34-year-old male with h/o bipolar disorder, cannabis use d/o, and stimulant use d/o who was BIBA to [facility] due to SI. Pt was last admitted to [facility] M3 from 01/26-01/31/25, which was his first inpatient psychiatric hospitalization. He was d/c'd from on Depakote 1000 mg qhs and Seroquel 50 mg tid. On this admission- pt reports that he became 'manic' after he d/c'd the Depakote and never wanted to take that med. He endorses sx c/w more and psychosis in the setting of taking Adderall (not rx'd to him) qd x 2 months, daily MJ use and recently ingesting 100 mg of THC w/ [employer] (non- psychedelic) mushrooms. It's unclear when he last used Adderall. Tox screen/BAL totally negative Plan: Admitted to [facility] M3 for safety and stabilization Legal status- CV 15 min safety checks VS per unit standard Pt was agreeable w/ starting risperidone 0.5 mg qhs + .5 mg tid prn for agitation instead of the Seroquel for tx of more/psychosis. Will start lorazepam 1 mg tid prn for severe anxiety 03/22: Sleep has improved. Pt endorses SI w/o plan, intrusive catastrophic worries, feeling overwhelmed, low frustration tolerance and feeling overstimulated. Will screen for OCD tomorrow. Pt is agreeable w/ plan to Titrate risperidone to 1 mg qhs for more/anxiety. 03/23: Pt notes significant improvement in his mood today. Tolerating the risperidone increase well. PRN Vistaril helps w/ anxiety. Provided pt w/ printed assessments including PCL5, YBOCS, Adult ADHD Self-report scale and MDQ to further screen for PTSD, OCD, ADHD and more. Will review tomorrow. 03/24: Pt completed the ADHD self-report scale and his responses and additional hx provided are c/w dx of ADHD, combined type. He has consistently reported that he hasn't taken Adderall in the past 2 months (so I don't think this is stimulant induced more) and that he has never gotten an actual Adderall rx of his own but took therapeutic doses in the past that he got from his gf's rx. T/W feels that it's appropriate to start pt on low dose Adderall today so that he can be monitored for any +/- response in a controlled setting. Pt expresses an understanding that stimulants can trigger/exacerbate more and the Adderall would be d/c'd if that occurs. Pt's history/presentation also seems to be consistent w/ autism spectrum disorder and he has good insight into this. He feels that the obsessions/compulsive behavior are more related to ASD than OCD. He completed most of the PCL-5 but stated that the positive responses were not related to a stressful event and he denies that the sx are bothersome. -T/W advised pt to reduce and ideally avoid cannabis since it can also contribute to his mood and cognitive sx. He agrees to at least reduce his use P- Start Adderall IR 10 mg today (since it is later in the day). Will order Adderall XR 10 mg for tomorrow am. Otherwise continue current tx plan. 03/25: doing well on the new medication regimen. Would like to discuss medication titration. Patient educated on: diagnosis and medication risk/benefits Informed Consent: understands Reason for continued inpatient stay Substantial Risk for: rapid decompensation Time Spent With Patient Time: Total time managing care of this patient today _15___ minutes.
[2025-03-25 20:00] VITALS: BP 135/78; PULSE 84; RESP 16; TEMP 36.8; O2SAT 97
[2025-03-26 07:52] VITALS: BP 105/67; PULSE 55; RESP 14; TEMP 36.8; O2SAT 99
[2025-03-26] MEDS: Nicotine 7 MG PATCH.TD24 TRANSDERMA (08:23)
[2025-03-26] MEDS: Dextroamphetamine/Amphetamine XR 10 MG CAP.ER.24H PO (08:24)
--- NOTE | 2025-03-26 10:04 | HO.PSYCHPN ---
Subjective Subjective Date of Service: 03/26/25 Reason For Visit: SI Subjective Notes: Conditional Voluntary Healthcare Proxy: No Guardianship: No Medical Problems Affecting Mental Status: No Interim History: Great. The Adderall is life changing. No complaints, other than wanting to discuss raising dose of Adderall with his primary team. Praising staff members on the unit. Denies SI/HI/AVH. Medication Compliance: Yes Side effects from medications: No Attending Groups: Yes Review of Systems Acute medical concerns: No Medical Review of Systems: unchanged Review of Systems Review of Systems Yes all other systems are reviewed and are negative Mental Status Exam Mental Status Exam Narrative: Patient Appearance: Well Groomed, adequate hygiene Patient Behavior: Appropriate Level of Consciousness: Awake, alert Patient Orientation: Person, Place and Time, situational context Memory: grossly intact to recent events Psychomotor: no agitation or slowing Speech: talkative, non-pressured Mood: ?I'm content? Affect: appropriate range Thought Process: Goal Oriented Thought Content: denies SI/HI; focused on treatment questions Hallucinations: Denies; does not appear preoccupied Delusions: None evinced Insight: mild impairment Judgment: mild impairment Impulsivity: low Diagnostics Vital Signs (24Hr): Vital Signs - 24 hr 03/25/25 20:00 03/26/25 07:52 Temperature 98.2 F 98.3 F Pulse Rate 84 55 Respiratory Rate 16 14 Blood Pressure 135/78 105/67 Pulse Oximetry 97 99 Oxygen Delivery Method Room Air Room Air BMI result Body Mass Index 23.8 Labs 03/20/25 12:42 03/22/25 07:57 Medications Medications Current Medications Al Hydroxide/Mg Hydroxide (Magnesium Hydrox/Alum Hydrox 30 Ml Oral.Susp) 30 ml PO Q6H PRN PRN Reason: Heartburn/Nausea Amphetamine/Dextroamphetamine (Dextroamphetamine/Amphetamine Xr 10 Mg Cap.Er.24h) 10 mg PO DAILY [facility] Last Admin: 03/26/25 08:24 Dose: 10 mg Diphenhydramine HCl (Diphenhydramine Hcl 25 Mg Capsule) 50 mg PO Q6H PRN PRN Reason: Extrapyramidal Effects Last Admin: 03/25/25 22:23 Dose: 50 mg Hydroxyzine HCl (Hydroxyzine Hcl 50 Mg Tablet) 50 mg PO TID PRN PRN Reason: mild anxiety Last Admin: 03/25/25 18:03 Dose: 50 mg Ibuprofen (Ibuprofen 800 Mg Tablet) 800 mg PO Q8H PRN PRN Reason: Pain, Moderate(Pain Scale 4-6) Last Admin: 03/26/25 09:54 Dose: 800 mg Lorazepam (Lorazepam 1 Mg Tablet) 1 mg PO TID PRN PRN Reason: severe anxiety Last Admin: 03/23/25 22:50 Dose: 1 mg Magnesium Hydroxide (Milk Of Magnesia 30 Ml Oral.Susp) 30 ml PO DAILY PRN PRN Reason: Constipation Nicotine (Nicotine 7 Mg Patch.Td24) 7 mg TRANSDERMA DAILY [facility] Last Admin: 03/26/25 08:23 Dose: 7 mg Nicotine Polacrilex (Nicotine Polacrilex 2 Mg Gum) 2 mg BUCCAL Q2H PRN PRN Reason: Nicotine Cravings Last Admin: 03/26/25 08:48 Dose: 2 mg Risperidone (Risperidone 0.5 Mg Tablet) 0.5 mg PO Q4H PRN PRN Reason: agitation and/or severe anxiet Last Admin: 03/24/25 17:40 Dose: 0.5 mg Risperidone (Risperidone 1 Mg Tablet) 1 mg PO BEDTIME VINAY Last Admin: 03/25/25 22:19 Dose: 1 mg Trazodone HCl (Trazodone Hcl 50 Mg Tablet) 50 mg PO BEDTIME MRX1 PRN PRN Reason: Insomnia Last Admin: 03/25/25 22:19 Dose: 50 mg Allergies Allergies Allergy/AdvReac Type Severity Reaction Status Date / Time No Known Allergies Allergy Verified 03/20/25 11:31 Assessment & Plan Assessment & Plan (1) Bipolar disorder: Status: Acute Code(s): F31.9 - Bipolar disorder, unspecified Assessment and Plan: Bipolar I d/o vs substance induced mood d/o (2) Anxiety disorder: Status: Acute Code(s): F41.9 - Anxiety disorder, unspecified (3) Attention deficit hyperactivity disorder, combined type: Status: Acute Code(s): F90.2 - Attention-deficit hyperactivity disorder, combined type (4) Cannabis use disorder: Status: Acute Code(s): F12.90 - Cannabis use, unspecified, uncomplicated (5) Stimulant use disorder: Status: Acute Code(s): F15.90 - Other stimulant use, unspecified, uncomplicated Plan Mr. Arriola is a 34-year-old male with h/o bipolar disorder, cannabis use d/o, and stimulant use d/o who was BIBA to [facility] due to SI. Pt was last admitted to [facility] from 01/26-01/31/25, which was his first inpatient psychiatric hospitalization. He was d/c'd from M3 on Depakote 1000 mg qhs and Seroquel 50 mg tid. On this admission- pt reports that he became 'manic' after he d/c'd the Depakote and never wanted to take that med. He endorses sx c/w more and psychosis in the setting of taking Adderall (not rx'd to him) qd x 2 months, daily MJ use and recently ingesting 100 mg of THC w/ [employer] (non-psychedelic) mushrooms. It's unclear when he last used Adderall. Tox screen/BAL totally negative Plan: Admitted to [facility] M3 for safety and stabilization Legal status- CV 15 min safety checks VS per unit standard Pt was agreeable w/ starting risperidone 0.5 mg qhs + .5 mg tid prn for agitation instead of the Seroquel for tx of more/psychosis. Will start lorazepam 1 mg tid prn for severe anxiety 03/22: Sleep has improved. Pt endorses SI w/o plan, intrusive catastrophic worries, feeling overwhelmed, low frustration tolerance and feeling overstimulated. Will screen for OCD tomorrow. Pt is agreeable w/ plan to Titrate risperidone to 1 mg qhs for more/anxiety. 03/23: Pt notes significant improvement in his mood today. Tolerating the risperidone increase well. PRN Vistaril helps w/ anxiety. Provided pt w/ printed assessments including PCL5, YBOCS, Adult ADHD Self-report scale and MDQ to further screen for PTSD, OCD, ADHD and more. Will review tomorrow. 03/24: Pt completed the ADHD self-report scale and his responses and additional hx provided are c/w dx of ADHD, combined type. He has consistently reported that he hasn't taken Adderall in the past 2 months (so I don't think this is stimulant induced more) and that he has never gotten an actual Adderall rx of his own but took therapeutic doses in the past that he got from his gf's rx. T/W feels that it's appropriate to start pt on low dose Adderall today so that he can be monitored for any +/- response in a controlled setting. Pt expresses an understanding that stimulants can trigger/exacerbate more and the Adderall would be d/c'd if that occurs. Pt's history/presentation also seems to be consistent w/ autism spectrum disorder and he has good insight into this. He feels that the obsessions/compulsive behavior are more related to ASD than OCD. He completed most of the PCL-5 but stated that the positive responses were not related to a stressful event and he denies that the sx are bothersome. -T/W advised pt to reduce and ideally avoid cannabis since it can also contribute to his mood and cognitive sx. He agrees to at least reduce his use P- Start Adderall IR 10 mg today (since it is later in the day). Will order Adderall XR 10 mg for tomorrow am. Otherwise continue current tx plan. 03/25: doing well on the new medication regimen. Would like to discuss medication titration. 03/26: no changes today, pt appears to be doing well Patient educated on: diagnosis and medication risk/benefits Informed Consent: understands Reason for continued inpatient stay Substantial Risk for: rapid decompensation Time Spent With Patient Time: Total time managing care of this patient today __15__ minutes.
[2025-03-26 19:35] VITALS: BP 122/88; PULSE 102; RESP 17; TEMP 36.3; O2SAT 99
[2025-03-27 07:59] VITALS: BP 108/70; PULSE 76; RESP 15; TEMP 36.8; O2SAT 98
[2025-03-27] MEDS: Dextroamphetamine/Amphetamine XR 10 MG CAP.ER.24H PO (08:09)
[2025-03-27] MEDS: Nicotine 7 MG PATCH.TD24 TRANSDERMA (08:09)
--- NOTE | 2025-03-27 11:42 | HO.PSYCHPN ---
Subjective Subjective Date of Service: 03/27/25 Reason For Visit: SI Subjective Notes: Conditional Voluntary Interim History: Chart reviewed. case discussed with team. Per nursing note- slept 8 hrs last night, going to [facility] [place], denies any psych sx No issues over the weekend per chart Met w/ pt in dayroom. He reported feeling a bit overstimulated but able to tolerate being in the milieu much more easily w/ current med regimen. He's been able to read and focus much more easily since starting the Adderall. Slept well last night. Feels calmer. Denies any med SE. He feels like it would be helpful to increase the dose since the med starts to wear off in the early afternoon. Agreed on plan to give one 5 mg IR dose now and switch to Adderall XR 20 mg starting tomorrow am. Pt plans to go to respite from here. He states that a friend will probably allow him to stay w/ them after respite since his psychiatric sx have improved. Denies SI Denies AHVH Medication Compliance: Yes Side effects from medications: No Attending Groups: Yes Review of Systems Acute medical concerns: No Medical Review of Systems: unchanged Mental Status Exam Mental Status Exam Narrative: Appearance: Casually dressed. Grooming/hygiene wnl. Good eye contact. Sitting at table reading newspaper Attitude:Cooperative Speech: Fluent and wnl in regard to volume, tone, prosody Motor activity: Calm and without any tics, tremors or dyskinesias. Mood: Much better Affect: appropriate, reactive. Not expansive/labile Thought process: goal directed and without evidence of formal thought disorder Thought content: as noted above. Future oriented Perception: Denies AH/VH and does not appear to respond to internal stimuli Alert/oriented in all spheres Cognition grossly intact Insight: fair, improved Judgment: intact Diagnostics Vital Signs (24Hr): Vital Signs - 24 hr 03/26/25 19:35 03/27/25 07:59 Temperature 97.3 F 98.2 F Pulse Rate 102 H 76 Respiratory Rate 17 15 Blood Pressure 122/88 108/70 Pulse Oximetry 99 98 Oxygen Delivery Method Room Air Room Air BMI result Body Mass Index 23.8 Labs 03/20/25 12:42 03/22/25 07:57 Medications Medications Current Medications Al Hydroxide/Mg Hydroxide (Magnesium Hydrox/Alum Hydrox 30 Ml Oral.Susp) 30 ml PO Q6H PRN PRN Reason: Heartburn/Nausea Amphetamine/Dextroamphetamine (Dextroamphetamine/Amphetamine Xr 10 Mg Cap.Er.24h) 10 mg PO DAILY [facility] Last Admin: 03/27/25 08:09 Dose: 10 mg Diphenhydramine HCl (Diphenhydramine Hcl 25 Mg Capsule) 50 mg PO Q6H PRN PRN Reason: Extrapyramidal Effects Last Admin: 03/26/25 20:47 Dose: 50 mg Hydroxyzine HCl (Hydroxyzine Hcl 50 Mg Tablet) 50 mg PO TID PRN PRN Reason: mild anxiety Last Admin: 03/26/25 15:32 Dose: 50 mg Ibuprofen (Ibuprofen 800 Mg Tablet) 800 mg PO Q8H PRN PRN Reason: Pain, Moderate(Pain Scale 4-6) Last Admin: 03/27/25 10:03 Dose: 800 mg Lorazepam (Lorazepam 1 Mg Tablet) 1 mg PO TID PRN PRN Reason: severe anxiety Last Admin: 03/26/25 20:47 Dose: 1 mg Magnesium Hydroxide (Milk Of Magnesia 30 Ml Oral.Susp) 30 ml PO DAILY PRN PRN Reason: Constipation Nicotine (Nicotine 7 Mg Patch.Td24) 7 mg TRANSDERMA DAILY [facility] Last Admin: 03/27/25 08:09 Dose: 7 mg Nicotine Polacrilex (Nicotine Polacrilex 2 Mg Gum) 2 mg BUCCAL Q2H PRN PRN Reason: Nicotine Cravings Last Admin: 03/27/25 11:20 Dose: 2 mg Risperidone (Risperidone 0.5 Mg Tablet) 0.5 mg PO Q4H PRN PRN Reason: agitation and/or severe anxiet Last Admin: 03/24/25 17:40 Dose: 0.5 mg Risperidone (Risperidone 1 Mg Tablet) 1 mg PO BEDTIME [facility]INAY Last Admin: 03/26/25 20:47 Dose: 1 mg Trazodone HCl (Trazodone Hcl 50 Mg Tablet) 50 mg PO BEDTIME MRX1 PRN PRN Reason: Insomnia Last Admin: 03/26/25 20:47 Dose: 50 mg Allergies Allergies Allergy/AdvReac Type Severity Reaction Status Date / Time No Known Allergies Allergy Verified 03/20/25 11:31 Assessment & Plan Assessment & Plan (1) Bipolar disorder: Status: Acute Code(s): F31.9 - Bipolar disorder, unspecified Assessment and Plan: Bipolar I d/o vs substance induced mood d/o (2) Anxiety disorder: Status: Acute Code(s): F41.9 - Anxiety disorder, unspecified (3) Attention deficit hyperactivity disorder, combined type: Status: Acute Code(s): F90.2 - Attention-deficit hyperactivity disorder, combined type (4) Cannabis use disorder: Status: Acute Code(s): F12.90 - Cannabis use, unspecified, uncomplicated (5) Stimulant use disorder: Status: Acute Code(s): F15.90 - Other stimulant use, unspecified, uncomplicated Plan Mr. Arriola is a 34-year-old male with h/o bipolar disorder, cannabis use d/o, and stimulant use d/o who was BIB[place] to [facility] due to SI. Pt was last admitted to [facility] from 01/26-01/31/25, which was his first inpatient psychiatric hospitalization. He was d/c'd from on Depakote 1000 mg qhs and Seroquel 50 mg tid. On this admission- pt reports that he became 'manic' after he d/c'd the Depakote and never wanted to take that med. He endorses sx c/w more and psychosis in the setting of taking Adderall (not rx'd to him) qd x 2 months, daily MJ use and recently ingesting 100 mg of THC w/ [employer] (non-psychedelic) mushrooms. It's unclear when he last used Adderall. Tox screen/BAL totally negative Plan: Admitted to [facility] M3 for safety and stabilization Legal status- CV 15 min safety checks VS per unit standard Pt was agreeable w/ starting risperidone 0.5 mg qhs + .5 mg tid prn for agitation instead of the Seroquel for tx of more/psychosis. Will start lorazepam 1 mg tid prn for severe anxiety 03/22: Sleep has improved. Pt endorses SI w/o plan, intrusive catastrophic worries, feeling overwhelmed, low frustration tolerance and feeling overstimulated. Will screen for OCD tomorrow. Pt is agreeable w/ plan to Titrate risperidone to 1 mg qhs for more/anxiety. 03/23: Pt notes significant improvement in his mood today. Tolerating the risperidone increase well. PRN Vistaril helps w/ anxiety. Provided pt w/ printed assessments including PCL5, YBOCS, Adult ADHD Self-report scale and MDQ to further screen for PTSD, OCD, ADHD and more. Will review tomorrow. 03/24: Pt completed the ADHD self-report scale and his responses and additional hx provided are c/w dx of ADHD, combined type. He has consistently reported that he hasn't taken Adderall in the past 2 months (so I don't think this is stimulant induced more) and that he has never gotten an actual Adderall rx of his own but took therapeutic doses in the past that he got from his gf's rx. T/W feels that it's appropriate to start pt on low dose Adderall today so that he can be monitored for any +/- response in a controlled setting. Pt expresses an understanding that stimulants can trigger/exacerbate more and the Adderall would be d/c'd if that occurs. Pt's history/presentation also seems to be consistent w/ autism spectrum disorder and he has good insight into this. He feels that the obsessions/compulsive behavior are more related to ASD than OCD. He completed most of the PCL-5 but stated that the positive responses were not related to a stressful event and he denies that the sx are bothersome. -T/W advised pt to reduce and ideally avoid cannabis since it can also contribute to his mood and cognitive sx. He agrees to at least reduce his use P- Start Adderall IR 10 mg today (since it is later in the day). Will order Adderall XR 10 mg for tomorrow am. Otherwise continue current tx plan. 03/25: doing well on the new medication regimen. Would like to discuss medication titration. 03/26: no changes today, pt appears to be doing well 03/27: Pt has had positive response to Adderall- more focused, calmer, able to read more easily, sleeping well. Wears off in early afternoon. Will give one time dose of 5 mg IR today (around 3:30) and inrease Adderall XR to 20 mg starting tomorrow am. Monitor for mood instability. Pt would like to go to respite and he thinks he'll be able to stay w/ a friend after that. Patient educated on: diagnosis, medication risk/benefits and medical condition Informed Consent: understands Reason for continued inpatient stay Substantial Risk for: med/psych decompensation Time Spent With Patient Time: Total time managing care of this patient today ____ minutes.
[2025-03-27] MEDS: Amphetamine Mixed Salts 10 MG TABLET 5 MG PO (15:36)
[2025-03-27 19:20] VITALS: BP 132/89; PULSE 95; RESP 16; TEMP 36.7; O2SAT 98
[2025-03-28 08:00] VITALS: BP 106/65; PULSE 64; RESP 14; TEMP 36.4; O2SAT 98
[2025-03-28] MEDS: Nicotine 7 MG PATCH.TD24 TRANSDERMA (08:44)
[2025-03-28] MEDS: Dextroamphetamine/Amphetamine XR 10 MG CAP.ER.24H 20 MG PO (08:44)
--- NOTE | 2025-03-28 18:51 | HO.PSYCHPN ---
Subjective Subjective Date of Service: 03/28/25 Reason For Visit: SI Subjective Notes: Conditional Voluntary Interim History: Chart reviewed. Case discussed w/ team Pt's anxiety and focus have significantly improved w/ tx of ADHD. He enjoyed the groups since he could focus. Endorses mild depression but future oriented, denies SI. Stayed up later than usual to watch a show last night but slept in. Denies any med SE. Discussed option to d/c tomorrow and pt feels safe w/ that plan. Will likely stay w/ a friend in the area. Interested in PHP and SW will provide info for him to schedule an intake once he gets settled after d/c. Review of Systems Acute medical concerns: No Medical Review of Systems: unchanged Mental Status Exam Mental Status Exam Narrative: Appearance: Casually dressed. Grooming/hygiene wnl. Good eye contact. Attitude:Cooperative Speech: Fluent and wnl in regard to volume, tone, prosody Motor activity: Calm and without any tics, tremors or dyskinesias. Mood: Much better Affect: appropriate, reactive. Not expansive/labile Thought process: goal directed and without evidence of formal thought disorder Thought content: as noted above. Future oriented Perception: Denies AH/VH and does not appear to respond to internal stimuli Alert/oriented in all spheres Cognition grossly intact Insight: generlly intact Judgment: intact Diagnostics Vital Signs (24Hr): Vital Signs - 24 hr 03/27/25 19:20 03/28/25 08:00 Temperature 98.1 F 97.5 F Pulse Rate 95 64 Respiratory Rate 16 14 Blood Pressure 132/89 106/65 Pulse Oximetry 98 98 Oxygen Delivery Method Room Air Room Air BMI result Body Mass Index 23.8 Labs 03/20/25 12:42 03/22/25 07:57 Medications Medications Current Medications Al Hydroxide/Mg Hydroxide (Magnesium Hydrox/Alum Hydrox 30 Ml Oral.Susp) 30 ml PO Q6H PRN PRN Reason: Heartburn/Nausea Amphetamine/Dextroamphetamine (Dextroamphetamine/Amphetamine Xr 10 Mg Cap.Er.24h) 20 mg PO DAILY [facility] Last Admin: 03/28/25 08:44 Dose: 20 mg Diphenhydramine HCl (Diphenhydramine Hcl 25 Mg Capsule) 50 mg PO Q6H PRN PRN Reason: Extrapyramidal Effects Last Admin: 03/27/25 22:09 Dose: 50 mg Hydroxyzine HCl (Hydroxyzine Hcl 50 Mg Tablet) 50 mg PO TID PRN PRN Reason: mild anxiety Last Admin: 03/28/25 18:47 Dose: 50 mg Ibuprofen (Ibuprofen 800 Mg Tablet) 800 mg PO Q8H PRN PRN Reason: Pain, Moderate(Pain Scale 4-6) Last Admin: 03/28/25 11:05 Dose: 800 mg Lorazepam (Lorazepam 1 Mg Tablet) 1 mg PO TID PRN PRN Reason: severe anxiety Last Admin: 03/27/25 22:09 Dose: 1 mg Magnesium Hydroxide (Milk Of Magnesia 30 Ml Oral.Susp) 30 ml PO DAILY PRN PRN Reason: Constipation Nicotine (Nicotine 7 Mg Patch.Td24) 7 mg TRANSDERMA DAILY [facility] Last Admin: 03/28/25 08:44 Dose: 7 mg Nicotine Polacrilex (Nicotine Polacrilex 2 Mg Gum) 4 mg BUCCAL Q2H PRN PRN Reason: Nicotine Cravings Last Admin: 03/28/25 17:31 Dose: 4 mg Risperidone (Risperidone 0.5 Mg Tablet) 0.5 mg PO Q4H PRN PRN Reason: agitation and/or severe anxiet Last Admin: 03/24/25 17:40 Dose: 0.5 mg Risperidone (Risperidone 1 Mg Tablet) 1 mg PO BEDTIME [facility] Last Admin: 03/27/25 22:09 Dose: 1 mg Trazodone HCl (Trazodone Hcl 50 Mg Tablet) 50 mg PO BEDTIME MRX1 PRN PRN Reason: Insomnia Last Admin: 03/27/25 22:09 Dose: 50 mg Allergies Allergies Allergy/AdvReac Type Severity Reaction Status Date / Time No Known Allergies Allergy Verified 03/20/25 11:31 Assessment & Plan Assessment & Plan (1) Bipolar disorder: Status: Acute Code(s): F31.9 - Bipolar disorder, unspecified Assessment and Plan: Bipolar I d/o vs substance induced mood d/o (2) Anxiety disorder: Status: Acute Code(s): F41.9 - Anxiety disorder, unspecified (3) Attention deficit hyperactivity disorder, combined type: Status: Acute Code(s): F90.2 - Attention-deficit hyperactivity disorder, combined type (4) Cannabis use disorder: Status: Acute Code(s): F12.90 - Cannabis use, unspecified, uncomplicated (5) Stimulant use disorder: Status: Acute Code(s): F15.90 - Other stimulant use, unspecified, uncomplicated Plan Mr. Arriola is a 34-year-old male with h/o bipolar disorder, cannabis use d/o, and stimulant use d/o who was BIBA to [facility] due to SI. Pt was last admitted to [facility] from 01/26-01/31/25, which was his first inpatient psychiatric hospitalization. He was d/c'd from on Depakote 1000 mg qhs and Seroquel 50 mg tid. On this admission- pt reports that he became 'manic' after he d/c'd the Depakote and never wanted to take that med. He endorses sx c/w more and psychosis in the setting of taking Adderall (not rx'd to him) qd x 2 months, daily MJ use and recently ingesting 100 mg of THC w/ [employer] (non-psychedelic) mushrooms. It's unclear when he last used Adderall. Tox screen/BAL totally negative Plan: Admitted to [facility] for safety and stabilization Legal status- CV 15 min safety checks VS per unit standard Pt was agreeable w/ starting risperidone 0.5 mg qhs + .5 mg tid prn for agitation instead of the Seroquel for tx of more/psychosis. Will start lorazepam 1 mg tid prn for severe anxiety 03/22: Sleep has improved. Pt endorses SI w/o plan, intrusive catastrophic worries, feeling overwhelmed, low frustration tolerance and feeling overstimulated. Will screen for OCD tomorrow. Pt is agreeable w/ plan to Titrate risperidone to 1 mg qhs for more/anxiety. 03/23: Pt notes significant improvement in his mood today. Tolerating the risperidone increase well. PRN Vistaril helps w/ anxiety. Provided pt w/ printed assessments including PCL5, YBOCS, Adult ADHD Self-report scale and MDQ to further screen for PTSD, OCD, ADHD and more. Will review tomorrow. 03/24: Pt completed the ADHD self-report scale and his responses and additional hx provided are c/w dx of ADHD, combined type. He has consistently reported that he hasn't taken Adderall in the past 2 months (so I don't think this is stimulant induced more) and that he has never gotten an actual Adderall rx of his own but took therapeutic doses in the past that he got from his gf's rx. T/W feels that it's appropriate to start pt on low dose Adderall today so that he can be monitored for any +/- response in a controlled setting. Pt expresses an understanding that stimulants can trigger/exacerbate more and the Adderall would be d/c'd if that occurs. Pt's history/presentation also seems to be consistent w/ autism spectrum disorder and he has good insight into this. He feels that the obsessions/compulsive behavior are more related to ASD than OCD. He completed most of the PCL-5 but stated that the positive responses were not related to a stressful event and he denies that the sx are bothersome. -T/W advised pt to reduce and ideally avoid cannabis since it can also contribute to his mood and cognitive sx. He agrees to at least reduce his use P- Start Adderall IR 10 mg today (since it is later in the day). Will order Adderall XR 10 mg for tomorrow am. Otherwise continue current tx plan. 03/25: doing well on the new medication regimen. Would like to discuss medication titration. 03/26: no changes today, pt appears to be doing well 03/27: Pt has had positive response to Adderall- more focused, calmer, able to read more easily, sleeping well. Wears off in early afternoon. Will give one time dose of 5 mg IR today (around 3:30) and inrease Adderall XR to 20 mg starting tomorrow am. Monitor for mood instability. Pt would like to go to respite and he thinks he'll be able to stay w/ a friend after that. 03/28: Pt's anxiety, depression and ADHD sx have signiciantly improved w/ current med regimen. He feels safe to d/c to his friend's house tomorrow and is interested in attending PHP when he gets settled. Will d/c tomorrow Patient educated on: diagnosis, medication risk/benefits, substance abuse and therapeutic strategies Informed Consent: understands Reason for continued inpatient stay Substantial Risk for: stable for discharge Time Spent With Patient Time: Total time managing care of this patient today ____ minutes.
[2025-03-28 20:00] VITALS: BP 126/83; PULSE 98; RESP 17; TEMP 36.5; O2SAT 98
[2025-03-29 07:40] VITALS: BP 137/61; PULSE 78; RESP 20; TEMP 36.2; O2SAT 98
[2025-03-29] MEDS: Dextroamphetamine/Amphetamine XR 10 MG CAP.ER.24H 20 MG PO (08:23)
[2025-03-29] MEDS: Nicotine 7 MG PATCH.TD24 TRANSDERMA (08:24)
--- NOTE | 2025-03-29 14:38 | P.DS_ITS ---
DS: Providers Provider Date of admission: 03/21/25 12:11 Date of discharge: 03/29/25 Primary care physician: FRANCA Dickerson Attending physician on admission: Alana Almanzar Attending physician on discharge: Alana Almanzar DS: Diagnosis Discharge Diagnosis (1) Bipolar disorder: Status: Acute (2) Anxiety disorder: Status: Acute (3) Attention deficit hyperactivity disorder, combined type: Status: Acute (4) Cannabis use disorder: Status: Acute (5) Stimulant use disorder: Status: Acute DS: Medications Discharge Medications Home Medications: Previous Rx's ?Medication ?Instructions ?Recorded dextroamphetamine-amphetamine ER 20 mg PO DAILY for AD HD, combined 03/29/25 20 mg 24hr capsule,extend release type 30 days #30 ca ps (Adderall XR) diphenhydramine HCl 25 mg capsule 50 mg (2 x 25 mg) PO DAILY PRN 03/29/25 muscle stiffness from risperidone 30 days #60 caps hydroxyzine HCl 50 mg tablet 50 mg PO BID PRN mild anx iety 30 03/29/25 days #60 tabs ibuprofen 800 mg tablet 800 mg PO Q8H PRN Pain, 03/13 11/04 Moderate(Pain Scale 4-6) #0 tabs lorazepam 1 mg tablet 1 mg PO DAILY PRN severe anx iety 03/29/25 30 days #30 tabs nicotine (polacrilex) 2 mg gum 4 mg buccal Q2H PRN Stef otine 03/29/25 Cravings 30 days #120 ea nicotine 7 mg/24 hr daily 7 mg transdermal DAILY 30 da ys #30 03/29/25 transdermal patch ea risperidone 0.5 mg tablet 0.5 mg PO TID PRN agitation 30 03/29/25 days #90 tabs risperidone 1 mg tablet 1 mg PO BEDTIME 30 days #30 tabs 03/29/25 trazodone 50 mg tablet 50 mg PO BEDTIME PRN Insomni a 30 03/29/25 days #30 tabs DS: Summary Time Spent with Patient Time attestation: Total time managing care of this patient today ____ minutes. Discharge Plan Discharge Anticipated Discharge Date/Time: 03/29/25 11:30 Patient Disposition: Home, Self-Care Discharge Diagnosis: Bipolar disorder, unspecified ADHD, combined type Autism spectrum disorder Cannabis use d/o Referrals: Partial Hospitalization Program (PHP) [Other] - 1 Week Referral Note: *You can reach out to the partial hospitalization program at the phone number listed above once you are settled in the community. Respite [Other] - 1 Week Referral Note: *You can present to the clinic listed above, Thursday through Thursday, to inquire about a possible respite placement. Rupinder Wolff (Therapy) [Other] - 04/03/25 1:00 pm Referral Note: IN OFFICE APPOINTMENT -Please arrive 15 minutes early to your appointment in order to fill out necessary paperwork. -Please also bring a copy of your insurance card with you. Radha Segura (Psychiatry) [Other] - 04/27/25 2:30 pm Referral Note: TELEHEALTH APPOINTMENT -Psychiatric Evaluation Radha Segura (Psychiatry) [Other] - 05/25/25 2:10 pm Referral Note: TELEHEALTH APPOINTMENT -Medication Management Rayna King, [employer] [Primary Care Provider, Internal Medicine] - 1 Week Referral Note: 03-29-25 Please contact your primary care provider to schedule a follow up appt within 7-10 days of discharge. No release on file. Discharge Medications: New diphenhydramine HCl 25 mg Capsule 50 mg PO DAILY PRN (Reason: muscle stiffness from risperidone) 30 Days Qty: 60 0RF nicotine 7 mg/24 hr Patch 24 Hour 7 mg transdermal DAILY 30 Days Qty: 30 0RF nicotine (polacrilex) 2 mg Gum 4 mg buccal Q2H PRN (Reason: Nicotine Cravings) 30 Days Qty: 120 0RF hydroxyzine HCl 50 mg Tablet 50 mg PO BID PRN (Reason: mild anxiety) 30 Days Qty: 60 0RF dextroamphetamine-amphetamine [Adderall XR] 20 mg capsule,extended release 24hr 20 mg PO DAILY 30 Days Qty: 30 0RF Rx Instructions: Partial Fill upon patient request. ibuprofen 800 mg Tablet 800 mg PO Q8H PRN (Reason: Pain, Moderate(Pain Scale 4-6)) Qty: 0 0RF lorazepam 1 mg Tablet 1 mg PO DAILY PRN (Reason: severe anxiety) 30 Days Qty: 30 0RF risperidone 0.5 mg Tablet 0.5 mg PO TID PRN (Reason: agitation) 30 Days Qty: 90 0RF risperidone 1 mg Tablet 1 mg PO BEDTIME 30 Days Qty: 30 0RF trazodone 50 mg Tablet 50 mg PO BEDTIME PRN (Reason: Insomnia) 30 Days Qty: 30 0RF Discontinued hydroxyzine HCl 50 mg Tablet 50 mg PO BID PRN (Reason: mild anxiety) 7 Days Qty: 14 0RF Discharge Orders: Discharge Order (Routine); Ordered 03/29/25 Ordered By: Alana Almanzar Diet: Regular diet Activity on Discharge: No Restrictions Stand Alone Forms: Patient Portal Discharge page, Community Support Print Language: Lithuanian Care Plan Goals: Maintain safe behaviors Practice coping skills Take medications as prescribed Continue to pursue sobriety Maintain regular follow-ups with your outpatient providers Health Concerns: None Plan of Treatment: Follow up with your psychiatric provider, PCP and other outpatient providers Take your medication as prescribed Assessment: Risk assessment at the time of discharge: Insight and judgment are intact Pt denies any SI, thoughts of nonsuicidal self-harm or violent ideation He is currently at low risk of harm to self/others and has a safety plan that includes presenting to the closest ER or calling 911 if feeling unsafe. Pt has been observed closely by unit staff and has not engaged in any behaviors that suggest dangerous to self or others and has demonstrated appropriate behaviors and impulse control. Discharge Date/Time: 03/29/25 11:18
--- NOTE | 2025-04-12 16:52 | P.EN_ITS ---
Event Note Date of Service: 04/12/25 Event Note: Received message from nursing station. Pt had called requesting to speak with vinod/francois and stated that he went to get his scripts from the pharmacy but they weren't there. 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 He said he wanted to speak with t/w to explore appropriate channels for possibly getting an earlier rx. Vinod/W explained that I cannot rx more meds for him and he will need to address this with his new provider at his appt in mid May. Time Spent With Patient Time: Total time managing care of this patient today ____ minutes.
== END 2025-03-29 11:18 | disposition home or self-care (01) | DRG 753 ==
LOC: HO.ED 03-21 09:55 → HO.PADLT16 03-21 12:36
PROVIDERS: Admitting Provider Psychiatry & Neurology Psychiatry; Emergency Provider Student in an Organized Health Care Education/Training Program; PCP Nurse Practitioner Family; Visit Provider Psychiatry & Neurology Psychiatry
DX: F31.9 Bipolar disorder, unspecified (principal); R45.851 Suicidal ideations; F17.210 Nicotine dependence, cigarettes, uncomplicated; F41.9 Anxiety disorder, unspecified; F12.90 Cannabis use, unspecified, uncomplicated; F84.0 Autistic disorder; F90.2 Attention-deficit hyperactivity disorder, combined type; F15.90 Other stimulant use, unspecified, uncomplicated; Z59.02 Unsheltered homelessness; Z71.6 Tobacco abuse counseling; Z79.899 Other long term (current) drug therapy
CPT/HCPCS: 36415; 80053; 80061; 80307; 81001; 83036; 83735; 85025; 90656; 93005; 99285; S9485

== ENCOUNTER → 2025-03-20 12:30 | Outpatient (BNV) | payer BC, SELFPAY | PROVIDERS: Emergency Provider Student in an Organized Health Care Education/Training Program; PCP Nurse Practitioner Family; Visit Provider Internal Medicine Cardiovascular Disease | DX: Z13.6 Encounter for screening for cardiovascular disorders (principal) | CPT/HCPCS: 93010 ==

== ENCOUNTER → 2025-03-21 12:11 | Outpatient (BNV) | payer MEDICAID, SELFPAY | PROVIDERS: Admitting Provider Psychiatry & Neurology Psychiatry; Emergency Provider Student in an Organized Health Care Education/Training Program; PCP Nurse Practitioner Family; Visit Provider Nurse Practitioner Family | DX: F41.9 Anxiety disorder, unspecified (principal) | CPT/HCPCS: 99221 ==